=== PATIENT | female | born 1960 | race Caucasian/White ===

== ENCOUNTER 2021-01-02 20:59 | Emergency (ER) | payer OTHER ==
[2021-01-02 21:25] VITALS: RESP 18; TEMP 97.9
[2021-01-02 21:48] LABS: Appearance,Urine Clear (Clear); Bacteria,Urine Rare /hpf; Bilirubin,Urine Negative (Negative); Blood,Urine Negative (Negative); Color,Urine Light Yellow; Glucose,Urine (UA) Negative (Negative); Ketones,Urine Negative (Negative); Leukocyte Esterase,Urine Small (Negative); Nitrite,Urine Negative (Negative); PH, Urine 6.5 (5.0-8.0); Protein,Urine Negative (Negative); RBC,Urine <1 /hpf (0-5); Squamous Epithelial Cell,Urine <1 /hpf (0-4); Urobilinogen,Urine <2.0 mg/dL (<2.0); WBC,Urine 3 /hpf (0-5)
[2021-01-02] MEDS ORDERED: MAG HYDROX/AL HYDROX/SIMETH 30 ML, HYOSCYAMINE ELIXIR 10 ML, LIDOCAINE VISCOUS 2% 10 ML PO STA ×3 (22:03)
--- NOTE | 2021-01-02 22:15 | XR ---
EXAMINATION TYPE: XR KUB DATE OF EXAM: 01/02/2021 COMPARISON: NONE HISTORY: Abdominal pain TECHNIQUE: 2 views upright FINDINGS: There is no sign of intestinal obstruction or pneumoperitoneum. Fecal pattern is normal. Th ere is no evidence of a mass. Lung bases are clear of consolidation. There is probably some subsegmen daron atelectasis right lung base. IMPRESSION: Subsegmental atelectasis posterior right lung base. Nonacute abdomen.
--- NOTE | 2021-01-02 22:40 | ED ---
Abdominal Pain HPI - General Chief Complaint: Abdominal Pain Stated Complaint: Abd Pain Time Seen by Provider: 01/02/21 22:02 Source: patient Mode of arrival: ambulatory Limitations: no limitations - History of Present Illness MD Complaint: abdominal pain Onset/Timin -: days(s) Location: diffuse, epigastric Radiation: none Migration to: no migration Severity: moderate Quality: burning Consistency: constant Improves With: nothing Worsens With: eating Associated Symptoms: nausea - Related Data Previous Rx's Medication Instructions Recorded Dicyclomine [Bentyl] 20 mg PO QID #15 tablet 01/03/21 Allergies Allergy/AdvReac Type Severity Reaction Status Date / Time No Known Allergies Allergy Verified 01/02/21 22:51 Review of Systems ROS Statement: Those systems with pertinent positive or pertinent negative responses have been documented in the HPI. ROS Other: All systems not noted in ROS Statement are negative. Constitutional: Denies: fever, chills Respiratory: Denies: cough, dyspnea Cardiovascular: Denies: chest pain, palpitations, orthopnea, edema, syncope Gastrointestinal: Reports: abdominal pain, nausea. Denies: vomiting, diarrhea, constipation, melena, hematochezia Genitourinary: Denies: dysuria, frequency, hematuria Musculoskeletal: Denies: back pain Skin: Denies: rash Neurological: Denies: headache, weakness, numbness Past Medical History Past Medical History: No Reported History History of Any Multi-Drug Resistant Organisms: None Reported Past Surgical History: Joint Replacement, Orthopedic Surgery Past Psychological History: No Psychological Hx Reported Smoking Status: Current every day smoker (One pack per day) Past Alcohol Use History: Daily (Approximately 6 pack) Past Drug Use History: Marijuana General Exam Limitations: no limitations General appearance: alert, in no apparent distress Head exam: Present: atraumatic, normocephalic Eye exam: Present: normal appearance. Absent: scleral icterus, conjunctival injection ENT exam: Present: normal oropharynx Neck exam: Present: normal inspection Respiratory exam: Present: normal lung sounds bilaterally. Absent: respiratory distress, wheezes, rales, rhonchi, stridor Cardiovascular Exam: Present: regular rate, normal rhythm, normal heart sounds. Absent: systolic murmur, diastolic murmur, rubs, gallop GI/Abdominal exam: Present: soft, tenderness (Mild epigastric tenderness without rebound or guarding), normal bowel sounds. Absent: distended, guarding, rebound, rigid, mass, pulsatile mass, hernia Extremities exam: Present: normal inspection, normal capillary refill. Absent: pedal edema, calf tenderness Back exam: Present: normal inspection. Absent: CVA tenderness (R), CVA tenderness (L) Neurological exam: Present: alert Skin exam: Present: warm, dry, intact, normal color. Absent: rash Course Vital Signs 01/02/21 21:21 Temperature 97.9 F Pulse Rate 72 Respiratory 18 Rate Blood Pressure 169/102 O2 Sat by Pulse 97 Oximetry Medical Decision Making - Lab Data Result diagrams: 01/02/21 22:38 01/02/21 22:38 Lab Results 01/02/21 01/02/21 01/02/21 Range/Units 21:29 21:33 22:38 WBC 9.6 (3.8-10.6) k/uL RBC 4.45 (3.80-5.40) m/uL Hgb 14.5 (11.4-16.0) gm/dL Hct 41.3 (34.0-46.0) % MCV 92.8 (80.0-100.0) fL MCH 32.7 (25.0-35.0) pg MCHC 35.2 (31.0-37.0) g/dL RDW 12.5 (11.5-15.5) % Plt Count 340 (150-450) k/uL MPV 6.7 Neutrophils % 62 % Lymphocytes % 23 % Monocytes % 9 % Eosinophils % 4 % Basophils % 1 % Neutrophils # 6.0 (1.3-7.7) k/uL Lymphocytes # 2.2 (1.0-4.8) k/uL Monocytes # 0.8 (0-1.0) k/uL Eosinophils # 0.4 (0-0.7) k/uL Basophils # 0.1 (0-0.2) k/uL Sodium (137-145) mmol/L Potassium (3.5-5.1) mmol/L Chloride (98-107) mmol/L Carbon Dioxide (22-30) mmol/L Anion Gap mmol/L BUN (7-17) mg/dL Creatinine (0.52-1.04) mg/dL Est GFR (CKD-EPI)AfAm (>60 ml/min/1.73 sqM) Est GFR (CKD-EPI)NonAf (>60 ml/min/1.73 sqM) Glucose (74-99) mg/dL Calcium (8.4-10.2) mg/dL Total Bilirubin (0.2-1.3) mg/dL AST (14-36) U/L ALT (4-34) U/L Alkaline Phosphatase (38-126) U/L Troponin I (0.000-0.034) ng/mL Total Protein (6.3-8.2) g/dL Albumin (3.5-5.0) g/dL Amylase (30-110) U/L Lipase (23-300) U/L Urine Color Light Yellow Urine Appearance Clear (Clear) Urine pH 6.5 (5.0-8.0) Ur Specific [place] 1.000 L (1.001-1.035) Urine Protein Negative (Negative) Urine Glucose (UA) Negative (Negative) Urine Ketones Negative (Negative) Urine Blood Negative (Negative) Urine Nitrite Negative (Negative) Urine Bilirubin Negative (Negative) Urine Urobilinogen <2.0 (<2.0) mg/dL Ur Leukocyte Esterase Small H (Negative) Urine RBC <1 (0-5) /hpf Urine WBC 3 (0-5) /hpf Ur Squamous Epith Cells <1 (0-4) /hpf Urine Bacteria Rare H (None) /hpf Coronavirus (PCR) Not Detected (Not Detectd) 01/02/21 01/02/21 Range/Units 22:38 22:38 WBC (3.8-10.6) k/uL RBC (3.80-5.40) m/uL Hgb (11.4-16.0) gm/dL Hct (34.0-46.0) % MCV (80.0-100.0) fL MCH (25.0-35.0) pg MCHC (31.0-37.0) g/dL RDW (11.5-15.5) % Plt Count (150-450) k/uL MPV Neutrophils % % Lymphocytes % % Monocytes % % Eosinophils % % Basophils % % Neutrophils # (1.3-7.7) k/uL Lymphocytes # (1.0-4.8) k/uL Monocytes # (0-1.0) k/uL Eosinophils # (0-0.7) k/uL Basophils # (0-0.2) k/uL Sodium 134 L (137-145) mmol/L Potassium 4.5 (3.5-5.1) mmol/L Chloride 102 (98-107) mmol/L Carbon Dioxide 25 (22-30) mmol/L Anion Gap 7 mmol/L BUN 9 (7-17) mg/dL Creatinine 0.74 (0.52-1.04) mg/dL Est GFR (CKD-EPI)AfAm >90 (>60 ml/min/1.73 sqM) Est GFR (CKD-EPI)NonAf 88 (>60 ml/min/1.73 sqM) Glucose 96 (74-99) mg/dL Calcium 9.7 (8.4-10.2) mg/dL Total Bilirubin 0.4 (0.2-1.3) mg/dL AST 27 (14-36) U/L ALT 16 (4-34) U/L Alkaline Phosphatase 101 (38-126) U/L Troponin I <0.012 (0.000-0.034) ng/mL Total Protein 7.0 (6.3-8.2) g/dL Albumin 4.1 (3.5-5.0) g/dL Amylase 58 (30-110) U/L Lipase 144 (23-300) U/L Urine Color Urine Appearance (Clear) Urine pH (5.0-8.0) Ur Specific [place] (1.001-1.035) Urine Protein (Negative) Urine Glucose (UA) (Negative) Urine Ketones (Negative) Urine Blood (Negative) Urine Nitrite (Negative) Urine Bilirubin (Negative) Urine Urobilinogen (<2.0) mg/dL Ur Leukocyte Esterase (Negative) Urine RBC (0-5) /hpf Urine WBC (0-5) /hpf Ur Squamous Epith Cells (0-4) /hpf Urine Bacteria (None) /hpf Coronavirus (PCR) (Not Detectd) Disposition Clinical Impression: Hypertension, Abdominal pain Disposition: HOME SELF-CARE Condition: Good Instructions (If sedation given, give patient instructions): Hypertension (ED), Abdominal Pain (ED) Prescriptions: Dicyclomine [Bentyl] 20 mg PO QID #15 tablet Is patient prescribed a controlled substance at d/c from ED?: No Referrals: None,Stated [REFERRING] - 1-2 days Lucia Khaill MD [STAFF PHYSICIAN] - 1-2 days
[2021-01-02 22:50] LABS: Basophils % (A) 1 %; Eosinophils % (A) 4 %; HCT 41.3 % (34.0-46.0); HGB 14.5 gm/dL (11.4-16.0); Lymphocytes % (A) 23 %; MCH 32.7 pg (25.0-35.0); MCHC 35.2 g/dL (31.0-37.0); MCV 92.8 fL (80.0-100.0); Mean Platelet Volume 6.7; Monocytes % (A) 9 %; Neutrophils % (A) 62 %; Platelet Count 340 k/uL (150-450); RBC 4.45 m/uL (3.80-5.40); RDW 12.5 % (11.5-15.5); WBC 9.6 k/uL (3.8-10.6)
[2021-01-02 22:51] LABS: Basophils # (A) 0.1 k/uL (0-0.2); Eosinophils # (A) 0.4 k/uL (0-0.7); Lymphocytes # (A) 2.2 k/uL (1.0-4.8); Monocytes # (A) 0.8 k/uL (0-1.0)
[2021-01-03 00:01] LABS: Potassium 4.5 mmol/L (3.5-5.1)
[2021-01-03 00:02] LABS: ALT 16 U/L (4-34); AST 27 U/L (14-36); African American GFR (CKD) >90 (>60 ml/min/1.73 sqM); Albumin 4.1 g/dL (3.5-5.0); Alkaline Phosphatase 101 U/L (38-126); Amylase 58 U/L (30-110); Anion Gap 7 mmol/L; Blood Urea Nitrogen 9 mg/dL (7-17); Calcium 9.7 mg/dL (8.4-10.2); Carbon Dioxide 25 mmol/L (22-30); Chloride 102 mmol/L (98-107); Glucose 96 mg/dL (74-99); Lipase 144 U/L (23-300); Non-African American GFR(CKD) 88 (>60 ml/min/1.73 sqM); Sodium 134 mmol/L (137-145); Total Bilirubin 0.4 mg/dL (0.2-1.3)
--- NOTE | 2021-01-03 01:00 | CT ---
EXAM: CT Abdomen and Pelvis With Intravenous Contrast CLINICAL HISTORY: ITS.REASON CT Reason: RUQ/epigastric pain TECHNIQUE: Axial computed tomography images of the abdomen and pelvis with intravenous contrast. CTDI is 24.97 mGy and DLP is 1053.3 mGy-cm. This CT exam was performed using one or more of the following dose reduction techniques: automated exposure control, adjustment of the mA and/or kV according to patient size, and/or use of iterative reconstruction technique. COMPARISON: KUB studies of 01/02/2021. FINDINGS: Lung bases: 1 cm calcified granuloma at the right lung base posteriorly. Presumed atelectasis posteriorly at the lung bases. Heart: Heart is normal in size. ABDOMEN: Liver: Fatty infiltration of the liver is noted. Scattered indeterminate hepatic hypodensities are noted Deshaun measures which do not indicate simple cyst. Gallbladder and bile ducts: See below. Pancreas: See below. Spleen: Coarse punctate calcifications within the spleen indicative of previous granulomatous disease. Adrenals: The adrenal glands, the head, body, tail of the pancreas and the gallbladder are unremarkable. Kidneys and ureters: Unremarkable. No solid mass. No hydronephrosis. Stomach and bowel: Small quantity of ingested material in the stomach. Moderate quantity of stool throughout the colon. No bowel obstruction. Diverticulosis without diverticulitis per PELVIS: Appendix: Appendix is seen on coronal image 41 and is unremarkable. Bladder: The bladder is underdistended. Reproductive: The uterus is unremarkable. ABDOMEN and PELVIS: Intraperitoneal space: Unremarkable. No free air. No significant fluid collection. Bones/joints: No acute fracture. No dislocation. Soft tissues: Unremarkable. Vasculature: Atherosclerotic disease of the abdominal aorta. Flow is demonstrated within the celiac, SMA, the renal arteries, and [place]. Significant atherosclerotic disease of major branch of the abdominal aorta. Portal vein is patent. No abdominal aortic aneurysm. Lymph nodes: There is extensive retroperitoneal and gastrohepatic ligament lymphadenopathy best seen on series 201 image 23. IMPRESSION: 1. Scattered hepatic hypodensities which do not appear to represent simple cyst based on Hounsfield evaluation. Magnetic resonance imaging of the abdomen with gadolinium administration dynamic imaging is best for further assessment to 2. Extensive retroperitoneal are and gastrohepatic lymphadenopathy. PET imaging is advised to follow-up for further assessment. 3. Gallbladder is unremarkable. 4. No hydronephrosis. 5. The appendix is unremarkable. 6. No bowel obstruction. 7. Diverticulosis without diverticulitis.
[2021-01-03 01:53] VITALS: BP 159/99; PULSE 85
== END 2021-01-03 01:53 | disposition home or self-care (01) ==
LOC: EC 20:59
DX: R10.13 Epigastric pain (principal); R10.84 Generalized abdominal pain; I10 Essential (primary) hypertension; R11.0 Nausea; F17.210 Nicotine dependence, cigarettes, uncomplicated; F12.90 Cannabis use, unspecified, uncomplicated; Z20.822 Contact with and (suspected) exposure to COVID-19
CPT/HCPCS: 36415; 80053; 82150; 83690; 84484; 85025; 81001; 87635; 74018; 74177; 99284; Q9967

== ENCOUNTER → 2021-02-11 | Outpatient (CLI) | payer OTHER ==
--- NOTE | 2021-02-11 16:46 | XR ---
EXAMINATION TYPE: XR abdomen complete w decub DATE OF EXAM: 02/11/2021 COMPARISON: CT 01/03/2021, a KUB 01/02/2021 HISTORY: R 10.10 TECHNIQUE: Supine, upright, and left side down lateral decubitus views of the abdomen are obtained. FINDINGS: The right lung base there is a calcified granuloma suspected. There is a spinal curvature present, degenerative disc changes are present in the visualized spine. There are overlying artifacts . There is no evidence for pneumoperitoneum. The bowel gas pattern is unremarkable as there is air throughout nondilated small and large bowel. No sizeable air fluid levels. No mass effects are seen. No interval change in pelvic calcifications. Splenic calcifications are again noted. IMPRESSION: The adenopathy seen on patient's prior CT is not seen on plain film, see dictated report CT scan 01/03.
== END | disposition home or self-care (01) ==
LOC: RADXRMAIN 15:53
PROVIDERS: ATTEND Nurse Practitioner
DX: R59.0 Localized enlarged lymph nodes (principal)
CPT/HCPCS: 74021

== ENCOUNTER 2021-02-19 22:26 | Emergency (ER) | payer OTHER ==
[2021-02-19 22:40] VITALS: BP 146/92; PULSE 97; RESP 18; TEMP 97.8
[2021-02-20 00:31] LABS: Appearance,Urine Clear (Clear); Bilirubin,Urine Negative (Negative); Blood,Urine Negative (Negative); Color,Urine Light Yellow; Glucose,Urine (UA) Negative (Negative); Ketones,Urine Negative (Negative); Leukocyte Esterase,Urine Trace (Negative); Nitrite,Urine Negative (Negative); Protein,Urine Negative (Negative); RBC,Urine 1 /hpf (0-5); Specific Gravity,Urine 1.005 (1.001-1.035); Squamous Epithelial Cell,Urine 1 /hpf (0-4); Urobilinogen,Urine <2.0 mg/dL (<2.0); WBC,Urine 1 /hpf (0-5)
--- NOTE | 2021-02-20 00:42 | ED ---
General Adult HPI - General Chief complaint: Urogenital Stated complaint: Issues urinating Time Seen by Provider: 02/19/21 23:12 Source: patient Mode of arrival: wheelchair - History of Present Illness Initial comments: 60 year-old female patient presents to the emergency department for evaluation of urinary retention. She states that she has not urinated since getting out of work around 1530 this afternoon. States that she has been drinking water. Denies any significant suprapubic discomfort. States she does feel the urge to urinate, but only small amounts will come out. Denies a history of similar symptoms. States she has been having some trouble with constipation and abdominal pain. States she has an MRI scheduled for Tuesday. Prior to symptoms starting she denies any hematuria, dysuria, urinary frequency, or urgency. Denies fever or chills. Denies any back pain. - Related Data Previous Rx's Medication Instructions Recorded Dicyclomine [Bentyl] 20 mg PO QID #15 tablet 01/03/21 Allergies Allergy/AdvReac Type Severity Reaction Status Date / Time No Known Allergies Allergy Verified 01/02/21 22:51 Review of Systems ROS Statement: Those systems with pertinent positive or pertinent negative responses have been documented in the HPI. ROS Other: All systems not noted in ROS Statement are negative. Past Medical History Past Medical History: No Reported History History of Any Multi-Drug Resistant Organisms: None Reported Past Surgical History: Joint Replacement, Orthopedic Surgery Past Psychological History: No Psychological Hx Reported Smoking Status: Current every day smoker Past Alcohol Use History: None Reported Past Drug Use History: Marijuana General Exam General appearance: alert, in no apparent distress, other (Social well- developed, well-nourished adult female patient in no acute distress. Vital signs upon presentation temperature 97.8F, pulse 97, respirations 18, blood pressure 146/92, pulse ox 98% on room air.) Eye exam: Present: normal appearance, PERRL, EOMI. Absent: scleral icterus, conjunctival injection, periorbital swelling ENT exam: Present: normal exam, normal oropharynx, mucous membranes moist Respiratory exam: Present: normal lung sounds bilaterally. Absent: respiratory distress, wheezes, rales, rhonchi, stridor Cardiovascular Exam: Present: regular rate, normal rhythm, normal heart sounds. Absent: systolic murmur, diastolic murmur, rubs, gallop, clicks GI/Abdominal exam: Present: soft, normal bowel sounds, hernia (Supraumbilical, no tenderness, no overlying erythema.). Absent: distended, tenderness, guarding, rebound, rigid Back exam: Absent: CVA tenderness (R), CVA tenderness (L) Neurological exam: Present: alert, oriented X3, CN II-XII intact Psychiatric exam: Present: normal affect, normal mood Skin exam: Present: warm, dry, intact, normal color. Absent: rash Course Vital Signs 02/19/21 22:31 Temperature 97.8 F Pulse Rate 97 Respiratory 18 Rate Blood Pressure 146/92 O2 Sat by Pulse 98 Oximetry Medical Decision Making - Medical Decision Making 60-year-old female patient presents to the emergency department today for evaluation of urinary retention. She was able to urinate here or she reports approximately 150-200 output. They did do postvoid residual bladder scan which showed around 160 mL. Urinalysis was negative for signs of infection. I did discuss findings and results with the patient. Offered to perform more testing, she declined states she wanted to go home to get some sleep for work in the morning. She'll be discharged to follow-up with urologist for further evaluation as soon as possible. She is instructed to follow up with her primary care physician for recheck in 1-2 days. Return parameters discussed in detail. She verbalizes understanding and agrees with this plan. My attending is Dr. Sánchez. - Lab Data Lab Results 02/19/21 Range/Units 23:58 Urine Color Light Yellow Urine Appearance Clear (Clear) Urine pH 6.0 (5.0-8.0) Ur Specific [place] 1.005 (1.001-1.035) Urine Protein Negative (Negative) Urine Glucose (UA) Negative (Negative) Urine Ketones Negative (Negative) Urine Blood Negative (Negative) Urine Nitrite Negative (Negative) Urine Bilirubin Negative (Negative) Urine Urobilinogen <2.0 (<2.0) mg/dL Ur Leukocyte Esterase Trace H (Negative) Urine RBC 1 (0-5) /hpf Urine WBC 1 (0-5) /hpf Ur Squamous Epith Cells 1 (0-4) /hpf Disposition Clinical Impression: Urinary retention Disposition: HOME SELF-CARE Condition: Good Instructions (If sedation given, give patient instructions): Acute Urinary Retention in Women (ED) Additional Instructions: Follow-up with urology for further evaluation. Follow-up through primary care physician for recheck in 1-2 days. Return to the emergency department immediately for any new or worsening symptoms. Is patient prescribed a controlled substance at d/c from ED?: No Referrals: Og Darby MD [Primary Care Provider] - 1-2 days Tay Jimenez MD [STAFF PHYSICIAN] - 1-2 days Time of Disposition: 00:42
== END 2021-02-20 00:59 | disposition home or self-care (01) ==
LOC: EC 22:26
DX: R33.9 Retention of urine, unspecified (principal); F17.200 Nicotine dependence, unspecified, uncomplicated; F12.90 Cannabis use, unspecified, uncomplicated
CPT/HCPCS: 51798; 81001; 99283

== ENCOUNTER 2021-02-25 21:50 | Emergency (ER) | payer OTHER ==
[2021-02-25 21:55] VITALS: BP 151/98; PULSE 104; RESP 18; TEMP 98.3
[2021-02-25] MEDS ORDERED: SODIUM CHLORIDE 0.9% 1,000 ML IV STA (22:16)
--- NOTE | 2021-02-25 22:34 | ED ---
General Adult HPI - General Chief complaint: Urogenital Stated complaint: trouble urinating Time Seen by Provider: 02/25/21 21:55 Source: patient Mode of arrival: wheelchair Limitations: no limitations - History of Present Illness Initial comments: 60 year-old female patient presents to the emergency department for evaluation of urinary retention and back pain. Patient states she has had trouble with symptoms since December. Was seen and evaluated in the emergency department on Tuesday. States she has not urinated since then. States that her physician gave her prescription for UTI including cefdinir and pyridium which she started yesterday. She called the office back today to inform them she still had not urinated and she was told to come to the emergency department. She had an outpatient MRI of the abdomen today and waited until after to come in and be evaluated. Reports she is having some diarrhea that started today. Denies fever or chills. Denies any nausea or vomiting. Denies history of kidney failure or issues with urinating prior to December. He states that she did have a computed tomography scan in December which showed possible cancer so there working her up for that, shows have an appointment coming up a [place]. Patient denies any recent rash, cough, shortness of breath, chest pain, numbness, tingling, dizziness, weakness, headache, visual changes, or any other complaints. - Related Data Home Medications Medication Instructions Recorded Confirmed Cefdinir [Omnicef] 1 cap PO BID 02/25/21 02/25/21 Docusate [Colace] 100 mg PO DAILY PRN 02/25/21 02/25/21 Omeprazole 40 mg PO DAILY 02/25/21 02/25/21 Phenazopyridine HCl [Pyridium] 200 mg PO TID PRN 02/25/21 02/25/21 Sucralfate [Carafate] 1 gm PO ACHS 02/25/21 02/25/21 traZODone HCL [Desyrel] 50 mg PO HS 02/25/21 02/25/21 Allergies Allergy/AdvReac Type Severity Reaction Status Date / Time No Known Allergies Allergy Verified 02/25/21 21:54 Review of Systems ROS Statement: Those systems with pertinent positive or pertinent negative responses have been documented in the HPI. ROS Other: All systems not noted in ROS Statement are negative. Past Medical History Past Medical History: No Reported History History of Any Multi-Drug Resistant Organisms: None Reported Past Surgical History: Joint Replacement, Orthopedic Surgery Past Psychological History: No Psychological Hx Reported Smoking Status: Current every day smoker Past Alcohol Use History: Occasional Past Drug Use History: Marijuana General Exam Limitations: no limitations General appearance: alert, in no apparent distress, other (This is a well- developed, well-nourished adult female patient in no acute distress. Vital signs upon presentation are temperature 98.3F, pulse 104, respirations 18, blood pressure 151/98, pulse ox 95% on room air.) ENT exam: Present: normal exam, normal oropharynx, mucous membranes moist Respiratory exam: Present: normal lung sounds bilaterally. Absent: respiratory distress, wheezes, rales, rhonchi, stridor Cardiovascular Exam: Present: regular rate, normal rhythm, normal heart sounds. Absent: systolic murmur, diastolic murmur, rubs, gallop, clicks GI/Abdominal exam: Present: soft, normal bowel sounds. Absent: distended, tenderness, guarding, rebound, rigid Back exam: Present: normal inspection. Absent: CVA tenderness (R), CVA tende rness (L) Neurological exam: Present: alert, oriented X3, CN II-XII intact Psychiatric exam: Present: normal affect, normal mood Skin exam: Present: warm, dry, intact, normal color. Absent: rash Course Vital Signs 02/25/21 21:51 Temperature 98.3 F Pulse Rate 104 H Respiratory 18 Rate Blood Pressure 151/98 O2 Sat by Pulse 95 Oximetry Medical Decision Making - Medical Decision Making 60-year-old female patient presents to the emergency department today for evaluation of urinary retention since Tuesday. Patient reports some back and side pain bilaterally. Patient is afebrile with normal vital signs. Labs reviewed and showed normal kidney function. Normal white blood cell, urinalysis did show positive nitrites so she did take Pyridium today so this is felt to be false positive. She had 16 white blood cells though also had 10-12 squamous epithelial cells so this is most likely due to contamination. She is currently on antibiotic for UTI. Patient did have outpatient MRI of the abdomen per formed, did have radiologist review this image and provide a report which showed worsening lymphadenopathy in the abdomen, displaced pancreas due to the lymphadenopathy. She also had obstructed left ureter, findings were consistent with metastatic disease. Patient has no known primary cancer. I did recommend admission for evaluation by oncology and urology. Patient initially was agreeable then changed her mind and wanted to be discharged. I did discuss that she would have to leave AGAINST MEDICAL ADVICE as a was within her best interest to stay. Did discuss the risks of leaving including , worsening of her symptoms, bladder rupture, and infection. She verbalizes understanding of these risks and proceeded to leave. She did sign AMA form. She is instructed to follow-up as soon as possible with her primary care physician and oncology or return if symptoms worsen. - Lab Data Result diagrams: 02/25/21 22:26 02/25/21 23:01 Lab Results 02/25/21 02/25/21 02/25/21 Range/Units 22:26 22:26 22:26 WBC 13.7 H (3.8-10.6) k/uL RBC 3.99 (3.80-5.40) m/uL Hgb 12.6 (11.4-16.0) gm/dL Hct 35.7 (34.0-46.0) % MCV 89.5 (80.0-100.0) fL MCH 31.7 (25.0-35.0) pg MCHC 35.4 (31.0-37.0) g/dL RDW 11.8 (11.5-15.5) % Plt Count 367 (150-450) k/uL MPV 7.1 Neutrophils % 79 % Lymphocytes % 9 % Monocytes % 8 % Eosinophils % 2 % Basophils % 1 % Neutrophils # 10.8 H (1.3-7.7) k/uL Lymphocytes # 1.3 (1.0-4.8) k/uL Monocytes # 1.2 H (0-1.0) k/uL Eosinophils # 0.2 (0-0.7) k/uL Basophils # 0.1 (0-0.2) k/uL Sodium (137-145) mmol/L Potassium (3.5-5.1) mmol/L Chloride (98-107) mmol/L Carbon Dioxide (22-30) mmol/L Anion Gap mmol/L BUN (7-17) mg/dL Creatinine (0.52-1.04) mg/dL Est GFR (CKD-EPI)AfAm (>60 ml/min/1.73 sqM) Est GFR (CKD-EPI)NonAf (>60 ml/min/1.73 sqM) Glucose (74-99) mg/dL Plasma Lactic Acid [place]erson (0.7-2.0) mmol/L Calcium (8.4-10.2) mg/dL Total Bilirubin (0.2-1.3) mg/dL AST (14-36) U/L ALT (4-34) U/L Alkaline Phosphatase (38-126) U/L Total Protein (6.3-8.2) g/dL Albumin (3.5-5.0) g/dL Lipase (23-300) U/L Urine Color Dark Brown Urine Appearance Cloudy H (Clear) Urine pH 5.5 (5.0-8.0) Ur Specific [place] 1.041 H (1.001-1.035) Urine Protein 1+ H (Negative) Urine Glucose (UA) Negative (Negative) Urine Ketones 1+ H (Negative) Urine Blood Negative (Negative) Urine Nitrite Positive H (Negative) Urine Bilirubin 2+ H (Negative) Urine Urobilinogen 8.0 (<2.0) mg/dL Ur Leukocyte Esterase Negative (Negative) Urine RBC 1 (0-5) /hpf Urine WBC 16 H (0-5) /hpf Ur Squamous Epith Cells 10 H (0-4) /hpf Urine Bacteria Rare H (None) /hpf Urine Mucus Moderate H (None) /hpf Urine Opiates Screen Detected H (NotDetected) Ur Oxycodone Screen Not Detected (NotDetected) Urine Methadone Screen Not Detected (NotDetected) Ur Propoxyphene Screen Not Detected (NotDetected) Ur Barbiturates Screen Not Detected (NotDetected) U Tricyclic Antidepress Not Detected (NotDetected) Ur Phencyclidine Scrn Not Detected (NotDetected) Ur Amphetamines Screen Not Detected (NotDetected) U Methamphetamines Scrn Not Detected (NotDetected) U Benzodiazepines Scrn Not Detected (NotDetected) Urine Cocaine Screen Not Detected (NotDetected) U Marijuana (THC) Screen Detected H (NotDetected) 02/25/21 02/25/21 Range/Units 22:41 23:01 WBC (3.8-10.6) k/uL RBC (3.80-5.40) m/uL Hgb (11.4-16.0) gm/dL Hct (34.0-46.0) % MCV (80.0-100.0) fL MCH (25.0-35.0) pg MCHC (31.0-37.0) g/dL RDW (11.5-15.5) % Plt Count (150-450) k/uL MPV Neutrophils % % Lymphocytes % % Monocytes % % Eosinophils % % Basophils % % Neutrophils # (1.3-7.7) k/uL Lymphocytes # (1.0-4.8) k/uL Monocytes # (0-1.0) k/uL Eosinophils # (0-0.7) k/uL Basophils # (0-0.2) k/uL Sodium 131 L (137-145) mmol/L Potassium 3.8 (3.5-5.1) mmol/L Chloride 99 (98-107) mmol/L Carbon Dioxide 25 (22-30) mmol/L Anion Gap 7 mmol/L BUN 9 (7-17) mg/dL Creatinine 0.82 (0.52-1.04) mg/dL Est GFR (CKD-EPI)AfAm 89 (>60 ml/min/1.73 sqM) Est GFR (CKD-EPI)NonAf 78 (>60 ml/min/1.73 sqM) Glucose 89 (74-99) mg/dL Plasma Lactic Acid [place] 1.1 (0.7-2.0) mmol/L Calcium 8.2 L (8.4-10.2) mg/dL Total Bilirubin 0.3 (0.2-1.3) mg/dL AST 45 H (14-36) U/L ALT 16 (4-34) U/L Alkaline Phosphatase 149 H (38-126) U/L Total Protein 5.7 L (6.3-8.2) g/dL Albumin 3.0 L (3.5-5.0) g/dL Lipase 119 (23-300) U/L Urine Color Urine Appearance (Clear) Urine pH (5.0-8.0) Ur Specific [place] (1.001-1.035) Urine Protein (Negative) Urine Glucose (UA) (Negative) Urine Ketones (Negative) Urine Blood (Negative) Urine Nitrite (Negative) Urine Bilirubin (Negative) Urine Urobilinogen (<2.0) mg/dL Ur Leukocyte Esterase (Negative) Urine RBC (0-5) /hpf Urine WBC (0-5) /hpf Ur Squamous Epith Cells (0-4) /hpf Urine Bacteria (None) /hpf Urine Mucus (None) /hpf Urine Opiates Screen (NotDetected) Ur Oxycodone Screen (NotDetected) Urine Methadone Screen (NotDetected) Ur Propoxyphene Screen (NotDetected) Ur Barbiturates Screen (NotDetected) U Tricyclic Antidepress (NotDetected) Ur Phencyclidine Scrn (NotDetected) Ur Amphetamines Screen (NotDetected) U Methamphetamines Scrn (NotDetected) U Benzodiazepines Scrn (NotDetected) Urine Cocaine Screen (NotDetected) U Marijuana (THC) Screen (NotDetected) - Radiology Data Radiology results: report reviewed MRI of the abdomen with and without contrast was obtained. Report was reviewed in its entirety. Impression by Dr. Perry shows massive retroperitoneal lymphadenopathy that is significantly increased compared to old computed tomography scan. There is anterior displacement of the pancreas due to the adenopathy. Multiple liver lesions which are significantly increased compared to old computed tomography scan consistent with metastatic disease. There is new left pleural effusion. Evidence of new abdominal ascites fluid compared to old exam. Moderately severe left-sided hydronephrosis and hydroureter consistent with dentist or ureteral obstruction which is new change compared to old exam. Disposition Clinical Impression: Ureteral obstruction, left, Abdominal lymphadenopathy, Metastatic disease Disposition: Left Against Medical Advice Condition: Stable Instructions (If sedation given, give patient instructions): Lymphadenopathy (ED), Acute Urinary Retention in Women (ED) Additional Instructions: Follow up with your primary care physician tomorrow. Follow up with oncologist at [facility] as soon as possible. Return to the emergency department for any new, worsening, or concerning symptoms. Is patient prescribed a controlled substance at d/c from ED?: No Referrals: Og Darby MD [Primary Care Provider] - 1-2 days Time of Disposition: 00:16
[2021-02-25 22:43] LABS: Basophils # (A) 0.1 k/uL (0-0.2); Basophils % (A) 1 %; Eosinophils # (A) 0.2 k/uL (0-0.7); Eosinophils % (A) 2 %; HCT 35.7 % (34.0-46.0); HGB 12.6 gm/dL (11.4-16.0); Lymphocytes # (A) 1.3 k/uL (1.0-4.8); Lymphocytes % (A) 9 %; MCH 31.7 pg (25.0-35.0); MCHC 35.4 g/dL (31.0-37.0); MCV 89.5 fL (80.0-100.0); Mean Platelet Volume 7.1; Monocytes # (A) 1.2 k/uL (0-1.0); Monocytes % (A) 8 %; Neutrophils # (A) 10.8 k/uL (1.3-7.7); Neutrophils % (A) 79 %; Platelet Count 367 k/uL (150-450); RBC 3.99 m/uL (3.80-5.40); RDW 11.8 % (11.5-15.5); WBC 13.7 k/uL (3.8-10.6)
[2021-02-25 22:45] LABS: Appearance,Urine Cloudy (Clear); Bacteria,Urine Rare /hpf; Bilirubin,Urine 2+ (Negative); Blood,Urine Negative (Negative); Color,Urine Dark Brown; Glucose,Urine (UA) Negative (Negative); Ketones,Urine 1+ (Negative); Leukocyte Esterase,Urine Negative (Negative); Mucus,Urine Moderate /hpf; Nitrite,Urine Positive (Negative); PH, Urine 5.5 (5.0-8.0); Protein,Urine 1+ (Negative); RBC,Urine 1 /hpf (0-5); Specific Gravity,Urine 1.041 (1.001-1.035); Squamous Epithelial Cell,Urine 10 /hpf (0-4); WBC,Urine 16 /hpf (0-5)
[2021-02-25 23:23] LABS: Amphetamine Screen,Urine Not Detected (NotDetected); Barbiturate Screen,Urine Not Detected (NotDetected); Benzodiazepines Screen,Urine Not Detected (NotDetected); Cocaine Screen,Urine Not Detected (NotDetected); Methadone Screen, Urine Not Detected (NotDetected); Opiate Screen,Urine Detected (NotDetected); Oxycodone Screen, Urine Not Detected (NotDetected); Phencyclidine Screen,Urine Not Detected (NotDetected); Tricyclic Antidepressant,Urine Not Detected (NotDetected); Urn Cannabinoid Scrn Detected (NotDetected)
[2021-02-25 23:38] LABS: Calcium 8.2 mg/dL (8.4-10.2); Potassium 3.8 mmol/L (3.5-5.1); Total Bilirubin 0.3 mg/dL (0.2-1.3); Total Protein 5.7 g/dL (6.3-8.2)
== END 2021-02-26 00:20 | disposition left against medical advice (07) ==
LOC: EC 21:50
DX: N13.1 Hydronephrosis with ureteral stricture, not elsewhere classified (principal); R59.0 Localized enlarged lymph nodes; C79.9 Secondary malignant neoplasm of unspecified site; F17.200 Nicotine dependence, unspecified, uncomplicated; F12.90 Cannabis use, unspecified, uncomplicated
CPT/HCPCS: 36415; 51798; 80053; 80306; 81001; 83605; 83690; 85025; 87086; 96360; 96361; 99284

== ENCOUNTER → 2021-02-25 | Outpatient (CLI) | payer OTHER ==
--- NOTE | 2021-02-25 22:32 | MR ---
EXAMINATION TYPE: MR abdomen wo/w con DATE OF EXAM: 02/25/2021 COMPARISON: CT abdomen 01/03/2021 HISTORY: RUQ and epigastric pain, abnormal CT. CONTRAST: Liver appears slightly enlarged. Standard multiplanar, multisequence MRI departmental protocol utilizing 7 mL intravenous Gadavist leonidas olinium contrast. There are numerous rounded areas of increased signal on the T2 images in the liver that measure up to 4 cm in diameter. The bile ducts are not dilated. Spleen is intact. The pancreatic duct is not dilat ed. I see no pancreatic mass. The stomach appears intact. There is no definite adrenal mass. There is moderate left-sided hydronephrosis and proximal hydrouret er. Left kidney is slightly enlarged. Contrast images show thin rim of enhancement on the multiple li aleida lesions. There is enhancement of both kidneys. There is normal contrast enhancement of the portal venous system. Gallbladder is slightly contracted. There is massive retroperitoneal lymphadenopathy. There is conglomeration of multiple lymph nodes and these measure up to 10 cm in anterior-posterior dimension. There is left pleural effusion. There is no sign of pericardial effusion. There is some ascites fluid in the right paracolic gutter. IMPRESSION: There is massive retroperitoneal lymphadenopathy that is significantly increased compared to old CT s can. There is anterior displacement of the pancreas due to the adenopathy. There are multiple liver lesions which are significantly increased compared to old CT scan and consis tent with metastatic disease. There is a new left pleural effusion. There is evidence of new abdominal ascites fluid compared to old exam. There is moderately severe left-sided hydronephrosis and hydroureter consistent with distal ureteral obstruction which is change compared to old exam.
== END | disposition home or self-care (01) ==
LOC: RADMRIMAIN 20:25
PROVIDERS: ATTEND Family Medicine
DX: K76.9 Liver disease, unspecified (principal); R18.8 Other ascites; R59.1 Generalized enlarged lymph nodes; N13.30 Unspecified hydronephrosis; N13.4 Hydroureter
CPT/HCPCS: 74183; A9585

== ENCOUNTER 2021-03-06 05:36 | Day surgery (SDC) | payer OTHER ==
[2021-03-05 15:19] VITALS: BMI 28.2
[~2021-03-06 05:36] MED LIST: ACETAMINOPHEN TAB 500 MG TAB PO PRN; HEPARIN SODIUM,PORCINE/PF 5,000 UNIT/0.5 ML SYRINGE SQ PRN; Pre Op ABX Message 1 EACH MISC MISCELLANE ONE
[2021-03-06] MEDS ORDERED: ONDANSETRON 4 MG/2 ML VIAL IVP ONE (05:37)
[2021-03-06] MEDS ORDERED: SCOPOLAMINE 1.5MG/72HR PATCH TRANSDERM ONE (05:37)
[2021-03-06] MEDS ORDERED: DEXAMETHASONE SOD PHOSPHATE 4 MG/ML 1 ML VIAL IV ONE (05:37)
[2021-03-06] MEDS ORDERED: MIDAZOLAM 2 MG/2 ML VIAL IV PRN (05:37)
[2021-03-06] MEDS ORDERED: LACTATED RINGERS 1,000 ML IV SCH (05:37)
[2021-03-06] MEDS ORDERED: ACETAMINOPHEN TAB 500 MG TAB ONE (06:33)
[2021-03-06] MEDS ORDERED: HEPARIN SODIUM,PORCINE/PF 5,000 UNIT/0.5 ML SYRINGE SQ ONE (06:34)
[2021-03-06] MEDS ORDERED: PROPOFOL 10 MG/ML 20 ML VIAL IV ONE (06:46)
[2021-03-06] MEDS ORDERED: SUCCINYLCHOLINE CHLORIDE 100 MG/5 ML SYR IV ONE (06:46)
[2021-03-06] MEDS ORDERED: fentaNYL (PF) 50 MCG/ML 2 ML AMP ONE (06:46)
[2021-03-06] MEDS ORDERED: MIDAZOLAM 2 MG/2 ML VIAL ONE (06:46)
[2021-03-06] MEDS ORDERED: LIDOCAINE 1% INJ 10MG/ML (20 ML MDV) ONE (06:46)
[2021-03-06] MEDS ORDERED: SODIUM CHLORIDE 0.9% 100 ML with ceFAZolin 2,000 MG IV ONE ×2 (06:50)
[2021-03-06] MEDS ORDERED: HYDROmorphone 0.5 MG/0.5 ML SYRINGE IVP PRN (07:00)
[2021-03-06] MEDS ORDERED: BUPIVACAINE (PF) 0.25% 30 ML VIAL SQ ONE ×2 (07:24→07:43)
[2021-03-06 08:01] VITALS: TEMP 98
[2021-03-06 08:03] VITALS: RESP 16
[2021-03-06] MEDS ORDERED: NALOXONE 0.4 MG/ML 1 ML VIAL IV PRN (08:03)
--- NOTE | 2021-03-06 08:06 | P.OP ---
Date of Procedure: 03/06/21 Procedure(s) Performed: Preoperative Dx: Metastatic cancer, abdominal pain, lymphadenopathy Postoperative Dx: Gastritis, lymphadenopathy Procedure: EGD with Bx, excision left supraclavicular lymph node Anesthesia: Sedation Endoscopist: Dr. Ruth Specimens: Antrum, left supraclavicular lymph node biopsy Endoscopic Procedure: The patient was on the operating room table in the supine position. Patient was placed under general anesthesia. The Olympus gastroscope was inserted into the oropharynx and passed under direct visualization to the region of the third portion of the duodenum. From that point the scope was slowly withdrawn inspecting all surfaces carefully. There were no neoplastic inflammatory or polypoid lesions throughout the duodenum. The pylorus was widely patent. The stomach was carefully inspected. There was mild gastritis present. A biopsy of the antrum took place to rule out H. pylori. Retroflexion revealed a normal hiatus. The esophagus was then carefully examined. There were no neoplastic inflammatory or polypoid lesions throughout the visualized esophagus. The left supraclavicular region was then prepped and draped sterilely. The palpable lymph node was identified. A curvilinear incision was made overlying the palpable node. Dissection through the saphenous tissues took place using electrocautery. Superficial venous structure divided using 3-0 silk ties. The palpable lymph node was then excised measuring 1.5 cm. In addition necrotic node was also identified during our dissection and partially excised. Both specimens sent to pathology. Subcutaneous tissues closed using 3-0 Vicryl sutures. Skin closed using 4-0 Monocryl sutures. Skin glue then applied.
[2021-03-06 08:50] VITALS: BP 131/89; PULSE 71
== END 2021-03-06 09:10 | disposition home or self-care (01) ==
LOC: OR 05:36
PROVIDERS: ATTEND Surgery
DX: C77.0 Secondary and unspecified malignant neoplasm of lymph nodes of head, face and neck (principal); K29.50 Unspecified chronic gastritis without bleeding; K92.2 Gastrointestinal hemorrhage, unspecified; Z98.890 Other specified postprocedural states; F17.210 Nicotine dependence, cigarettes, uncomplicated; E07.9 Disorder of thyroid, unspecified; Z86.73 Personal history of transient ischemic attack (TIA), and cerebral infarction without residual deficits; Z79.899 Other long term (current) drug therapy
CPT/HCPCS: 88305; 88342; 88341; 43239; 38500; J2250; J1100; J2405; J0690; J2001; J3010; J0330; J2704; J1644

== ENCOUNTER 2021-03-09 10:37 | Inpatient (IN) | payer OTHER ==
[2021-03-09] MEDS ORDERED: MORPHINE SULFATE 4 MG/ML SYRINGE IVP STA (11:57)
[2021-03-09] MEDS ORDERED: SODIUM CHLORIDE 0.9% 500 ML 500 ML IV STA (11:57)
[2021-03-09 12:39] LABS: Basophils # (A) 0.1 k/uL (0-0.2); Basophils % (A) 1 %; Eosinophils # (A) 0.3 k/uL (0-0.7); Eosinophils % (A) 2 %; HCT 36.7 % (34.0-46.0); HGB 12.7 gm/dL (11.4-16.0); Lymphocytes # (A) 1.4 k/uL (1.0-4.8); Lymphocytes % (A) 10 %; MCHC 34.7 g/dL (31.0-37.0); MCV 89.5 fL (80.0-100.0); Mean Platelet Volume 7.2; Monocytes # (A) 1.4 k/uL (0-1.0); Monocytes % (A) 10 %; Neutrophils # (A) 10.9 k/uL (1.3-7.7); Neutrophils % (A) 77 %; Platelet Count 415 k/uL (150-450); RDW 12.3 % (11.5-15.5); WBC 14.2 k/uL (3.8-10.6)
[2021-03-09 12:48] LABS: ALT 24 U/L (4-34); AST 80 U/L (14-36); African American GFR (CKD) >90 (>60 ml/min/1.73 sqM); Albumin 3.3 g/dL (3.5-5.0); Alkaline Phosphatase 319 U/L (38-126); Anion Gap 6 mmol/L; Blood Urea Nitrogen 11 mg/dL (7-17); Calcium 9.1 mg/dL (8.4-10.2); Carbon Dioxide 29 mmol/L (22-30); Chloride 95 mmol/L (98-107); Glucose 96 mg/dL (74-99); Lipase 58 U/L (23-300); Non-African American GFR(CKD) >90 (>60 ml/min/1.73 sqM); Potassium 4.7 mmol/L (3.5-5.1); Sodium 130 mmol/L (137-145); Total Bilirubin 0.4 mg/dL (0.2-1.3); Total Protein 6.2 g/dL (6.3-8.2)
--- NOTE | 2021-03-09 12:48 | ED ---
General Adult HPI - General Chief complaint: Recheck/Abnormal Lab/Rx Stated complaint: sent by PCP Time Seen by Provider: 03/09/21 11:28 Source: patient Mode of arrival: wheelchair Limitations: physical limitation - History of Present Illness Initial comments: Patient is a 60-year-old female, with a recent diagnosis of metastatic cancer, presenting to the emergency department from physician's office for generalized pain, shortness of breath. Patient states that this is a brand-new diagnosis and she is still unsure of what the course of action is going to be. She has been following with Dr. Luther. Patient states she has been taking Oxford's for p ain, her last dose of the proximal base exam this morning. She states her abdominal pain is no worse than it normally is, some mild nausea but no vomiting. No diarrhea. She denies any chest pain at this time, but feels like her heart is beating faster. Her doctor's office, patient was hypoxic and tachycardic in the office and they were concerned for possible PE. She has no history of PEs, she is not on blood thinners. There are no further complaints. Upon arrival to the ER, her pulse is 107, 94% on room air, rest of vital stable. - Related Data Home Medications Medication Instructions Recorded Confirmed Docusate [Colace] 100 mg PO DAILY PRN 02/25/21 03/09/21 Sucralfate [Carafate] 1 gm PO Q6H 02/25/21 03/09/21 HYDROcodone/APAP 5-325MG [[place] 1 tab PO Q6HR 03/05/21 03/09/21 5-325] Hyoscyamine Sulfate [Levsin] 0.125 mg PO TID 03/05/21 03/09/21 Allergies Allergy/AdvReac Type Severity Reaction Status Date / Time No Known Allergies Allergy Verified 03/09/21 13:13 Review of Systems ROS Statement: Those systems with pertinent positive or pertinent negative responses have been documented in the HPI. ROS Other: All systems not noted in ROS Statement are negative. Past Medical History Past Medical History: No Reported History Additional Past Medical History / Comment(s): " FLUID ON LUNGS " -POSSIBLE , SWELLING IN FEET, ABDOMINAL PAIN , stomach ca History of Any Multi-Drug Resistant Organisms: None Reported Past Surgical History: Joint Replacement, Orthopedic Surgery Additional Past Surgical History / Comment(s): RIGHT TOTAL KNEE, COLONOSCOPY Past Anesthesia/Blood Transfusion Reactions: No Reported Reaction Past Psychological History: No Psychological Hx Reported Smoking Status: Current every day smoker Past Alcohol Use History: Occasional Past Drug Use History: Marijuana - Past Family History Mother Family Medical History: Cancer Additional Family Medical History / Comment(s): BREAST CANCER Father Family Medical History: Cancer Additional Family Medical History / Comment(s): COLON CANCER General Exam - General Exam Comments Initial Comments: GENERAL: Patient is well-developed and well-nourished. Patient is nontoxic and in no acute distress. HEAD: Atraumatic, normocephalic. EYES: Pupils equal round and reactive to light, extraocular movements intact, sclera anicteric, conjunctiva are normal. Eyelids were unremarkable. ENT: TMs normal, nares patent, oropharynx clear without exudates. Moist mucous membranes. NECK: Normal range of motion, supple without lymphadenopathy or JVD. LUNGS: Unlabored respirations. Breath sounds clear to auscultation bilaterally and equal. No wheezes rales or rhonchi. HEART: Tachycardia rate and rhythm without murmurs, rubs or gallops. ABDOMEN: Soft, tenderness over the entire abdomen, no specific area,, normoactive bowel sounds. No guarding, no rebound. No masses appreciated. : Deferred MUSCULOSKELETAL: Normal extremities with adequate strength and normal range of motio. Mild bilateral ankle edema. No clubbing or cyanosis. NEUROLOGICAL: Patient is alert and oriented x 3. Motor and sensory are also intact. Cranial nerves II through XII grossly intact. Symmetrical smile. Normal speech, normal gait. PSYCH: Normal mood, normal affect. SKIN: Warm, Dry, normal turgor, no rashes or lesions noted. Limitations: physical limitation Course Vital Signs 03/09/21 03/09/21 03/09/21 11:05 12:21 12:47 Temperature 98.2 F Pulse Rate 107 H 100 103 H Respiratory 18 18 18 Rate Blood Pressure 110/77 126/84 126/98 O2 Sat by Pulse 94 L 93 L 92 L Oximetry 03/09/21 03/09/21 03/09/21 13:41 15:41 15:46 Temperature 98.2 F Pulse Rate 105 H 100 100 Respiratory 16 16 16 Rate Blood Pressure 123/91 122/86 122/86 O2 Sat by Pulse 92 L 90 L 90 L Oximetry EKG Findings - EKG Comments: EKG Findings:: Sinus tach, possible lateral infarct age undetermined, cannot rule out inferior infarct, age undetermined, no signs of acute process. Ventricular rate 107, PA interval 140, QT 322. Medical Decision Making - Medical Decision Making Patient is a 60-year-old female with recent history of metastatic abdominal cancer, origin is unsure. She arrived from PCPs office for further evaluation of tachycardia, hypoxia, generalized pain. Patient is afebrile, tachycardia at 107, 94% on room air. She is not on blood thinners. Labs show a slight white count of 14.2, d-dimer is 2.47, sodium is 130, troponin is normal. Urine shows no evidence of infection, rapid Covid is negative. CT chest and now shows no large central PE, no definite lobar branch embolus. Bilateral pulmonary no dules, hepatic and adrenal metastases, moderate to large left pleural effusion with adjacent collapsible inferior lingula, and basilar left lower lobe. Small right effusion. Patient continues to be tachycardia at 105, 92% on room air. Patient will be admitted for oncology and pulmonary consult. Patient accepted by [facility]. Case discussed with Dr. Brennan. - Lab Data Result diagrams: 03/11/21 05:32 03/10/21 05:21 Lab Results 03/09/21 03/09/21 03/09/21 Range/Units 11:59 11:59 11:59 WBC 14.2 H (3.8-10.6) k/uL RBC 4.10 (3.80-5.40) m/uL Hgb 12.7 (11.4-16.0) gm/dL Hct 36.7 (34.0-46.0) % MCV 89.5 (80.0-100.0) fL MCH 31.0 (25.0-35.0) pg MCHC 34.7 (31.0-37.0) g/dL RDW 12.3 (11.5-15.5) % Plt Count 415 (150-450) k/uL MPV 7.2 Neutrophils % 77 % Lymphocytes % 10 % Monocytes % 10 % Eosinophils % 2 % Basophils % 1 % Neutrophils # 10.9 H (1.3-7.7) k/uL Lymphocytes # 1.4 (1.0-4.8) k/uL Monocytes # 1.4 H (0-1.0) k/uL Eosinophils # 0.3 (0-0.7) k/uL Basophils # 0.1 (0-0.2) k/uL PT 10.9 (9.0-12.0) sec INR 1.0 (<1.2) APTT 23.7 (22.0-30.0) sec D-Dimer 2.47 H (<0.60) mg/L FEU Sodium 130 L (137-145) mmol/L Potassium 4.7 (3.5-5.1) mmol/L Chloride 95 L (98-107) mmol/L Carbon Dioxide 29 (22-30) mmol/L Anion Gap 6 mmol/L BUN 11 (7-17) mg/dL Creatinine 0.71 (0.52-1.04) mg/dL Est GFR (CKD-EPI)AfAm >90 (>60 ml/min/1.73 sqM) Est GFR (CKD-EPI)NonAf >90 (>60 ml/min/1.73 sqM) Glucose 96 (74-99) mg/dL Osmolality (280-301) mosm/kg Plasma Lactic Acid [place] (0.7-2.0) mmol/L Calcium 9.1 (8.4-10.2) mg/dL Total Bilirubin 0.4 (0.2-1.3) mg/dL AST 80 H (14-36) U/L ALT 24 (4-34) U/L Alkaline Phosphatase 319 H (38-126) U/L Troponin I (0.000-0.034) ng/mL Total Protein 6.2 L (6.3-8.2) g/dL Albumin 3.3 L (3.5-5.0) g/dL Lipase 58 (23-300) U/L Urine Color Urine Appearance (Clear) Urine pH (5.0-8.0) Ur Specific [place] (1.001-1.035) Urine Protein (Negative) Urine Glucose (UA) (Negative) Urine Ketones (Negative) Urine Blood (Negative) Urine Nitrite (Negative) Urine Bilirubin (Negative) Urine Urobilinogen (<2.0) mg/dL Ur Leukocyte Esterase (Negative) Urine RBC (0-5) /hpf Urine WBC (0-5) /hpf Ur Squamous Epith Cells (0-4) /hpf Amorphous Sediment (None) /hpf Urine Mucus (None) /hpf Coronavirus (PCR) (Not Detectd) 03/09/21 03/09/21 03/09/21 Range/Units 11:59 11:59 11:59 WBC (3.8-10.6) k/uL RBC (3.80-5.40) m/uL Hgb (11.4-16.0) gm/dL Hct (34.0-46.0) % MCV (80.0-100.0) fL MCH (25.0-35.0) pg MCHC (31.0-37.0) g/dL RDW (11.5-15.5) % Plt Count (150-450) k/uL MPV Neutrophils % % Lymphocytes % % Monocytes % % Eosinophils % % Basophils % % Neutrophils # (1.3-7.7) k/uL Lymphocytes # (1.0-4.8) k/uL Monocytes # (0-1.0) k/uL Eosinophils # (0-0.7) k/uL Basophils # (0-0.2) k/uL PT (9.0-12.0) sec INR (<1.2) APTT (22.0-30.0) sec D-Dimer (<0.60) mg/L FEU Sodium (137-145) mmol/L Potassium (3.5-5.1) mmol/L Chloride (98-107) mmol/L Carbon Dioxide (22-30) mmol/L Anion Gap mmol/L BUN (7-17) mg/dL Creatinine (0.52-1.04) mg/dL Est GFR (CKD-EPI)AfAm (>60 ml/min/1.73 sqM) Est GFR (CKD-EPI)NonAf (>60 ml/min/1.73 sqM) Glucose (74-99) mg/dL Osmolality (280-301) mosm/kg Plasma Lactic Acid [place] 1.7 (0.7-2.0) mmol/L Calcium (8.4-10.2) mg/dL Total Bilirubin (0.2-1.3) mg/dL AST (14-36) U/L ALT (4-34) U/L Alkaline Phosphatase (38-126) U/L Troponin I <0.012 (0.000-0.034) ng/mL Total Protein (6.3-8.2) g/dL Albumin (3.5-5.0) g/dL Lipase (23-300) U/L Urine Color Yellow Urine Appearance Clear (Clear) Urine pH 5.5 (5.0-8.0) Ur Specific [place] 1.034 (1.001-1.035) Urine Protein 1+ H (Negative) Urine Glucose (UA) Negative (Negative) Urine Ketones Trace H (Negative) Urine Blood Negative (Negative) Urine Nitrite Negative (Negative) Urine Bilirubin Negative (Negative) Urine Urobilinogen <2.0 (<2.0) mg/dL Ur Leukocyte Esterase Negative (Negative) Urine RBC 1 (0-5) /hpf Urine WBC 2 (0-5) /hpf Ur Squamous Epith Cells 1 (0-4) /hpf Amorphous Sediment Rare H (None) /hpf Urine Mucus Rare H (None) /hpf Coronavirus (PCR) (Not Detectd) 03/09/21 03/09/21 Range/Units 11:59 11:59 WBC (3.8-10.6) k/uL RBC (3.80-5.40) m/uL Hgb (11.4-16.0) gm/dL Hct (34.0-46.0) % MCV (80.0-100.0) fL MCH (25.0-35.0) pg MCHC (31.0-37.0) g/dL RDW (11.5-15.5) % Plt Count (150-450) k/uL MPV Neutrophils % % Lymphocytes % % Monocytes % % Eosinophils % % Basophils % % Neutrophils # (1.3-7.7) k/uL Lymphocytes # (1.0-4.8) k/uL Monocytes # (0-1.0) k/uL Eosinophils # (0-0.7) k/uL Basophils # (0-0.2) k/uL PT (9.0-12.0) sec INR (<1.2) APTT (22.0-30.0) sec D-Dimer (<0.60) mg/L FEU Sodium (137-145) mmol/L Potassium (3.5-5.1) mmol/L Chloride (98-107) mmol/L Carbon Dioxide (22-30) mmol/L Anion Gap mmol/L BUN (7-17) mg/dL Creatinine (0.52-1.04) mg/dL Est GFR (CKD-EPI)AfAm (>60 ml/min/1.73 sqM) Est GFR (CKD-EPI)NonAf (>60 ml/min/1.73 sqM) Glucose (74-99) mg/dL Osmolality 267 L (280-301) mosm/kg Plasma Lactic Acid [place] (0.7-2.0) mmol/L Calcium (8.4-10.2) mg/dL Total Bilirubin (0.2-1.3) mg/dL AST (14-36) U/L ALT (4-34) U/L Alkaline Phosphatase (38-126) U/L Troponin I (0.000-0.034) ng/mL Total Protein (6.3-8.2) g/dL Albumin (3.5-5.0) g/dL Lipase (23-300) U/L Urine Color Urine Appearance (Clear) Urine pH (5.0-8.0) Ur Specific [place] (1.001-1.035) Urine Protein (Negative) Urine Glucose (UA) (Negative) Urine Ketones (Negative) Urine Blood (Negative) Urine Nitrite (Negative) Urine Bilirubin (Negative) Urine Urobilinogen (<2.0) mg/dL Ur Leukocyte Esterase (Negative) Urine RBC (0-5) /hpf Urine WBC (0-5) /hpf Ur Squamous Epith Cells (0-4) /hpf Amorphous Sediment (None) /hpf Urine Mucus (None) /hpf Coronavirus (PCR) Not Detected (Not Detectd) Disposition Clinical Impression: Metastatic disease, Hypoxia, Pleural effusion, left, Abdominal pain Disposition: ADMITTED IP TO THIS HOSP Condition: Stable Decision Date: 03/09/21 Decision Time: 14:00
[2021-03-09 12:52] LABS: Partial Thromboplastin Time 23.7 sec (22.0-30.0); Prothrombin Time 10.9 sec (9.0-12.0)
[2021-03-09 13:05] LABS: D-Dimer 2.47 mg/L FEU (<0.60)
[2021-03-09 13:14] LABS: Amorphous Sediment,Urine Rare /hpf; Appearance,Urine Clear (Clear); Bilirubin,Urine Negative (Negative); Blood,Urine Negative (Negative); Color,Urine Yellow; Glucose,Urine (UA) Negative (Negative); Ketones,Urine Trace (Negative); Leukocyte Esterase,Urine Negative (Negative); Mucus,Urine Rare /hpf; Nitrite,Urine Negative (Negative); PH, Urine 5.5 (5.0-8.0); Protein,Urine 1+ (Negative); RBC,Urine 1 /hpf (0-5); Specific Gravity,Urine 1.034 (1.001-1.035); Squamous Epithelial Cell,Urine 1 /hpf (0-4); Urobilinogen,Urine <2.0 mg/dL (<2.0); WBC,Urine 2 /hpf (0-5)
--- NOTE | 2021-03-09 13:33 | CT ---
EXAMINATION TYPE: CT chest angio for PE DATE OF EXAM: 03/09/2021 COMPARISON: None HISTORY: 60-year-old female with tachycardia, cancer patient, shortness of breath, Dyspnea. TECHNIQUE: Contiguous axial scanning of the chest performed with IV Contrast, patient injected with 1 00 mL of Isovue 370. Coronal/sagittal MIP reconstructions performed. CT DLP: 295.5 mGycm Automated exposure control for dose reduction was used. FINDINGS: Heart normal size without pericardial effusion. No flattening of the interventricular septum or reflu x of contrast into the hepatic veins. Prominent motion artifact at the base of the heart. Borderline ectatic ascending aorta 3.5 cm. Medial left breast mass measures 1.9 cm. Since it left-sided axillary lymphadenopathy measuring up to 2.9 cm extending into the subpectoral region. Possible underlying lymphadenopathy in the left suprac lavicular region measuring up to 4.1 cm and left thoracic inlet measuring 1.9 cm displacing the left lobe of the thyroid gland and left common carotid artery anteriorly. Left hilar lymph nodes measure 1.2 cm. Right periaortic lymphadenopathy measures up to 3.2 cm at the mid chest level. Right hilar lymph node s measure up to 2.0. Additional calcified subcarinal right hilar lymph nodes compatible with prior gr anulomatous disease. Extensive motion artifact no large central or definite lobar branch pulmonary embolus. Portions of th e lower branches and many of the segmental and more distal pulmonary arteries are nondiagnostic due t o the motion. Mild to moderate centrilobular emphysema. Numerous small nodules measuring mostly up to 8 mm. Nodules in the right lung base measuring up to 1.5 cm. There are some scattered septal lines. Moderate to la rge left pleural effusion. Near complete collapse of the inferior lingula and basilar left lower lobe . Small right pleural effusion. Some scattered septal lines within the lungs. Extensive retrocrural and upper abdominal lymphadenopathy. There is encasement of the gastrohepatic l igament region and celiac axis. Large hepatic masses measuring up to 8.3 cm. Abnormal perinephric sof t tissue nodularity and bilateral adrenal masses measuring up to 3.9 cm. Some delayed enhancement of the left kidney. Bones: [facility] within the mid to lower thoracic spine. IMPRESSION: 1. BREATHING MOTION ARTIFACT LIMITING ASSESSMENT FOR PE. NO LARGE CENTRAL PULMONARY EMBOLUS. NO DEFIN ITE LOBAR BRANCH EMBOLUS. SCATTERED PORTIONS OF THE LOBAR BRANCHES AND MANY OF THE SEGMENTAL AND MORE DISTAL ARTERIAL BRANCHES ARE NONDIAGNOSTIC AND EMBOLI IN THESE LOCATIONS CANNOT BE EXCLUDED ON THE B ASIS OF THIS EXAM. 2. A 1.9 CM MEDIAL LEFT BREAST MASS, LEFT-SIDED AXILLARY LYMPHADENOPATHY, BILATERAL PULMONARY NODULES MEASURING UP TO 1.5 CM, LEFT SUPRACLAVICULAR AND LEFT THORACIC INLET LYMPHADENOPATHY, RETROCRURAL AN D SEVERE UPPER ABDOMINAL LYMPHADENOPATHY. HEPATIC AND ADRENAL METASTASES. PERINEPHRIC NODULARITY ALSO SUGGESTIVE OF METASTATIC DISEASE. 3. MODERATE TO LARGE LEFT PLEURAL EFFUSION. THERE IS ADJACENT COLLAPSE OF THE INFERIOR LINGULA AND BA SILAR LEFT LOWER LOBE. SMALL RIGHT EFFUSION. 4. COPD WITH MILD EMPHYSEMA. GIVEN SOME SEPTAL LINES AND THE BILATERAL PLEURAL EFFUSIONS, CONSIDER [place] LD PULMONARY VASCULAR CONGESTION. 5. DELAYED ENHANCEMENT OF THE LEFT KIDNEY. CORRELATE TO EXCLUDE LEFT-SIDED OBSTRUCTIVE UROPATHY.
[2021-03-09] MEDS ORDERED: NALOXONE 0.4 MG/ML 1 ML VIAL IV PRN (13:53)
[2021-03-09] MEDS ORDERED: ONDANSETRON 4 MG/2 ML VIAL IVP PRN (13:53)
[2021-03-09] MEDS ORDERED: DOCUSATE 100 MG CAP PO PRN (14:58)
[2021-03-09] MEDS: SODIUM CHLORIDE 0.9% 1,000 ML IV SCH (15:00)
--- NOTE | 2021-03-09 15:29 | US ---
EXAMINATION TYPE: US chest DATE OF EXAM: 03/09/2021 COMPARISON: CT chest same date CLINICAL HISTORY: left pleural effusion. TECHNIQUE: Targeted ultrasound of the posterior lower left chest EXAM MEASUREMENTS: Left Pleural Effusion pocket size: 10.7 cm Left skin surface to fluid distance: 3.5 cm Left side marked for possible thoracentesis outside the dept. Right not done per Dr. Cross in room during ultrasound. Pulmonologists are able to review the images in the patient?s EMR. IMPRESSIONS: Large left pleural effusion, limited exam
--- NOTE | 2021-03-09 15:51 | XR ---
EXAMINATION TYPE: XR chest 1V portable DATE OF EXAM: 03/09/2021 COMPARISON: 03/09/2021 CT HISTORY: Postthoracentesis TECHNIQUE: Single frontal view of the chest is obtained. FINDINGS: Left greater than right bilateral pleural effusions are seen with adjacent airspace diseas e. No definite pneumothorax. Right chest nodules are noted, as seen on prior CT. Cardiac silhouette is obscured by pulmonary findings. IMPRESSION: Left greater than right bilateral pleural effusions are seen with adjacent airspace disease. No defin ite pneumothorax.
--- NOTE | 2021-03-09 16:21 | P.CNPUL ---
History of Present Illness Consult date: 03/09/21 Requesting physician: Og Darby Reason for consult: pleural effusion Chief complaint: Generalized weakness and vague pain. History of present illness: This is a 60-year-old female who has not been feeling well since December of 2020. Patient has been complaining of vague abdominal discomfort and some bloating of her stomach for the last 2 months. A KUB was done on 01/02/2021, and it showed subsegmental atelectasis posterior right lung base. There was no evidence of acute abdomen at the time. And no evidence of mass. CT of the abdomen and pelvis was done on 01/03/2021, this was done in the ER, and there was evidence of extensive retroperitoneal and gastrohepatic lymphadenopathy. The radiologist at that time recommended MRI of the abdomen. MRI of the abdomen was not done on 14/06/2021, however prior to that on 02/2021, patient was seen in the ER again, and her complaint was mostly urinary retention. No major workup was done at the time. Her MRI on 02/25/21, showed massive retroperitoneal lymphadenopathy significantly increased compared to previous CT of the abdomen and pelvis. There was evidence of anterior displacement of the pancreas due to adenopathy. There was also multiple liver lesions significantly increased compared to previous CT of the abdomen and pelvis consistent with metastatic disease. There was also evidence of left sided hydronephrosis and proximal hydroureter. There was also evidence of abdominal ascites. The radiologist also raise the possibility of distal ureteral obstruction. Patient was referred to Dr. Luther on outpatient basis, and he recommended a referral to Dr. David schilling. Patient underwent EGD she also underwent excision of left supraclavicular lymph node. There was no evidence of inflammatory or polypoid lesions throughout the stomach or duodenum. The pathology on the left supraclavicular lymph node is pending. Patient was seen by her primary care physician today with multiple constitutional complaints, and he recommended that the patient goes to the ER again. CT of the chest was done, and it showed no evidence of pulmonary embolism. It did show evidence of 1.9 cm left breast mass and left sided axillary lymphadenopathy it also showed bilateral pulmonary nodules and left supraclavicular as well as left thoracic inlet lymphadenopathy significant upper abdominal lymphadenopathy and hepatic as well as adrenal metastatic lesions were noted. In addition to this there was a moderate to large left pleural effusion and collapse of the inferior lingula. With a small right-sided pleural effusion. Considering the findings, I was asked to see this patient on consultation I did evaluate the patient in the ER, went ahead and performed left-sided thoracentesis which is mostly diagnostic and therapeutic at the same time. Fluid was sent for different diagnostic studies including cytology and creatinine level was ordered to make sure that the fluid is not urinothorax . I was able to drain 1100 mL of fluid and again this was sent for different diagnostic studies. I did get the report on the biopsies that were done by Dr. schilling, and these are all pending. Review of Systems Constitutional: Generalized weakness and fatigue. Vague aches and pains. HEENT: Negative. Pulmonary: Some shortness of breath, occasional cough, no wheezing. GI: As noted in HPI mostly abdominal distention and feeling still a bloated most of the time, occasional nausea. Genitourinary: Negative. Musculoskeletal: Vague aches and pains. Psychiatric: Negative. Endocrine: Negative Neurologic: Negative. Hematologic: Negative. Skin: Negative. Past Medical History Past Medical History: No Reported History Additional Past Medical History / Comment(s): " FLUID ON LUNGS " -POSSIBLE , SWELLING IN FEET, ABDOMINAL PAIN , stomach ca History of Any Multi-Drug Resistant Organisms: None Reported Past Surgical History: Joint Replacement, Orthopedic Surgery Additional Past Surgical History / Comment(s): RIGHT TOTAL KNEE, COLONOSCOPY Past Anesthesia/Blood Transfusion Reactions: No Reported Reaction Past Psychological History: No Psychological Hx Reported Smoking Status: Current every day smoker Past Alcohol Use History: Occasional Past Drug Use History: Marijuana - Past Family History Mother Family Medical History: Cancer Additional Family Medical History / Comment(s): BREAST CANCER Father Family Medical History: Cancer Additional Family Medical History / Comment(s): COLON CANCER Medications and Allergies Home Medications Medication Instructions Recorded Confirmed Type Docusate [Colace] 100 mg PO DAILY PRN 02/25/21 03/09/21 History Sucralfate [Carafate] 1 gm PO Q6H 02/25/21 03/09/21 History HYDROcodone/APAP 5-325MG [[place] 1 tab PO Q6HR 03/05/21 03/09/21 History 5-325] Hyoscyamine Sulfate [Levsin] 0.125 mg PO TID 03/05/21 03/09/21 History Allergies Allergy/AdvReac Type Severity Reaction Status Date / Time No Known Allergies Allergy Verified 03/09/21 13:13 Physical Exam Vitals: Vital Signs Temp Pulse Resp BP Pulse Ox 03/09/21 15:46 98.2 F 100 16 122/86 90 L 03/09/21 15:41 100 16 122/86 90 L 03/09/21 13:41 105 H 16 123/91 92 L 03/09/21 12:47 103 H 18 126/98 92 L 03/09/21 12:21 100 18 126/84 93 L 03/09/21 11:05 98.2 F 107 H 18 110/77 94 L Intake and Output 03/09/21 03/09/21 03/09/21 06:59 14:59 22:59 Other: Weight 72.575 kg Physical Exam: Revealed 60-year-old female in no distress. On room air Head: Atraumatic, normocephalic. HEENT:[Neck is supple.] Left supraclavicular lymphadenopathy is noted and palpable. Chest: [Apical chest expansion, diminished breath sounds and dullness at the left base. Cardiac Exam: [Normal S1 and S2, no S3 gallop, no murmur.] Abdomen: [Soft, nontender, no megaly, no rebound, no guarding, normal bowel sounds.] Extremities: Mild clubbing, no edema, no cyanosis.] Neurological Exam: Alert and oriented 3 focal deficits. Psychiatric: Normal mood affect and normal mental status examination. Skin: No rashes. Musculoskeletal: No deformities and no limitation in range of motion Results - Laboratory Findings CBC and BMP: 03/09/21 11:59 03/09/21 11:59 PT/INR, D-dimer PT 10.9 sec (9.0-12.0) 03/09/21 11:59 INR 1.0 (<1.2) 03/09/21 11:59 D-Dimer 2.47 mg/L FEU (<0.60) H 03/09/21 11:59 Abnormal lab findings: Abnormal Labs 03/09/21 03/09/21 03/09/21 11:59 11:59 11:59 WBC 14.2 H Neutrophils # 10.9 H Monocytes # 1.4 H D-Dimer 2.47 H Sodium 130 L Chloride 95 L AST 80 H Alkaline Phosphatase 319 H Total Protein 6.2 L Albumin 3.3 L Urine Protein Urine Ketones Amorphous Sediment Urine Mucus 03/09/21 11:59 WBC Neutrophils # Monocytes # D-Dimer Sodium Chloride AST Alkaline Phosphatase Total Protein Albumin Urine Protein 1+ H Urine Ketones Trace H Amorphous Sediment Rare H Urine Mucus Rare H - Diagnostic Findings Chest x-ray: image reviewed (As noted in HPI) CT scan - chest: image reviewed (As noted in HPI.) Assessment and Plan Assessment: Impression: Large left pleural effusion, most likely malignant unless proven otherwise. However the possibility of a urinothorax is to be considered considering the patient has left hydronephrosis and distal left ureteral obstruction. And the patient seems to have underlying metastatic disease exact primary is not clear and that is yet to be determined possibly breast cancer or could be hepatobiliary malignancy. History of recent left supraclavicular lymph node excision and biopsy, results of which are pending. Abnormal MRI of the abdomen highly suspicious for metastatic disease involving the liver, adrenals, and significant retroperitoneal adenopathy noted. Small ascites as noted on recent MRI. Left breast mass, malignancy is to be considered, general surgery to see on c onsultation Left hydronephrosis with ureteral obstruction Nicotine dependence syndrome. Possible pancreatic or hepatobiliary malignancy. Especially with recently elevated CA 199. Hyponatremia possible SIADH. Recommendation: Left sided thoracentesis was performed, and fluid was sent for different diagnostic studies. Awaiting the results of her lymph node biopsy/left supraclavicular. Awaiting the results of the pleural effusion, it was sent for cytology and for creatinine. Consult urology to evaluate for the left hydronephrosis GI and DVT prophylaxis. We will continue to follow. Time with Patient: Greater than 30
[2021-03-09] MEDS: SUCRALFATE 1 GM TAB PO SCH ×2 (16:56→21:15)
[2021-03-09] MEDS: HYOSCYAMINE SULFATE 0.125 MG TAB PO SCH ×2 (16:56→21:15)
[2021-03-09] MEDS: MORPHINE SULFATE 4 MG/ML SYRINGE IV PRN ×2 (17:03→21:16)
[2021-03-09 17:23] LABS: Appearance,BF Cloudy; RBC, Body Fluid 2250 /uL
[2021-03-09 17:24] LABS: Nucleated Cells, Body Fluid 1675 /uL
[2021-03-09 17:25] LABS: Mononuclear WBC,Body Fluid 70 %; Polynuclear WBC,Body Fluid 30 %; Total Cells Counted,Body Fluid 100
[2021-03-09] MEDS ORDERED: HYDROcodone/APAP 5-325MG 1 EACH TAB PO SCH (18:00)
--- NOTE | 2021-03-09 20:56 | P.CONS ---
History of Present Illness - Reason for Consult Consult date: 03/09/21 Metastatic Cancer Requesting physician: Tammi Bullock - Chief Complaint Pain - History of Present Illness This is a very nice lady who presented with abdominal pain and nausea,black stool,statered in December/2020,she went to ER,had a CT scan of abdomen/pelvis on 01/03/2021 which revealed larger retroperitoneal and gastrohepatic nodes,suspiicous liver lesions. She had MRI of adbomen on 02/25/2021 which revealed enlarging retroperitonela nodes,conglomeration if multiple nodes measured up to 10 cm. multiple suspisicious liver lesion,ascites,left pleural effusuion,left side hydronephrosis On 02/17/2021,CBC revealed neutrophilia,CMP revealed mild hyponatremia and ALK 169. She feels tired,can't lay flat,has significant abdominal and back pain,on norco as needed,black stool,constipated,no fever or chills,lost few punds since December/2020. She was initially seen by Dr. Luther in office on 03/02/21, he had a discussion with the patient that day The clinical and radiographic picture are highly suggestive of metastatic malignancy. Upper GI malignancy,lung cancer or lymphoma are in the differential diagnosis. In view of episodes of black stool,I would recommend to proceed with RGD and biopsy of left supraclavicula node. Also,to complete the work up, aCT scan of chest will be obtained. He did discuss her care with Dr Ruth,he will see her later this week. Patient was seen on 03/06/21 and underwent EGD with Dr. Millard as well as excision supraclavicular node biopsy, this pathology is still pending. She now represents to hospital as she is not feeling well. CT scan in december with massive adenopathy. CTA today reveals same. Hyponatremia and leukocytosis. Review of Systems All systems: negative Constitutional: Reports as per HPI Past Medical History Past Medical History: No Reported History Additional Past Medical History / Comment(s): " FLUID ON LUNGS " -POSSIBLE , SWELLING IN FEET, ABDOMINAL PAIN , stomach ca History of Any Multi-Drug Resistant Organisms: None Reported Past Surgical History: Joint Replacement, Orthopedic Surgery Additional Past Surgical History / Comment(s): RIGHT TOTAL KNEE, COLONOSCOPY Past Anesthesia/Blood Transfusion Reactions: No Reported Reaction Past Psychological History: No Psychological Hx Reported Smoking Status: Current every day smoker Past Alcohol Use History: Occasional Past Drug Use History: Marijuana - Past Family History Mother Family Medical History: Cancer Additional Family Medical History / Comment(s): BREAST CANCER Father Family Medical History: Cancer Additional Family Medical History / Comment(s): COLON CANCER Medications and Allergies Home Medications Medication Instructions Recorded Confirmed Type Docusate [Colace] 100 mg PO DAILY PRN 02/25/21 03/09/21 History Sucralfate [Carafate] 1 gm PO Q6H 02/25/21 03/09/21 History HYDROcodone/APAP 5-325MG [[place] 1 tab PO Q6HR 03/05/21 03/09/21 History 5-325] Hyoscyamine Sulfate [Levsin] 0.125 mg PO TID 03/05/21 03/09/21 History Allergies Allergy/AdvReac Type Severity Reaction Status Date / Time No Known Allergies Allergy Verified 03/09/21 13:13 Physical Exam Vitals: Vital Signs Temp Pulse Resp BP Pulse Ox 03/09/21 15:41 100 16 122/86 90 L 03/09/21 13:41 105 H 16 123/91 92 L 03/09/21 12:47 103 H 18 126/98 92 L 03/09/21 12:21 100 18 126/84 93 L 03/09/21 11:05 98.2 F 107 H 18 110/77 94 L Intake and Output 03/09/21 03/09/21 03/09/21 06:59 14:59 22:59 Other: Weight 72.575 kg - Constitutional General appearance: cooperative, no acute distress - EENT Eyes: EOMI ENT: NA/AT - Neck Neck: lymphadenopathy - Respiratory Respiratory: bilateral: diminished, wheezing - Cardiovascular Rhythm: irregularly irregular leg Peripheral Edema: bilateral: 2+ - Gastrointestinal General gastrointestinal: distended, hepatomegaly, soft, tenderness - Integumentary Integumentary: pale - Neurologic Neurologic: CNII-XII intact - Musculoskeletal Musculoskeletal: generalized weakness - Psychiatric Psychiatric: A&O x's 3 Results CBC & Chem 7: 03/09/21 11:59 03/09/21 11:59 Labs: Abnormal Lab Results - Last 24 Hours (Table) 03/09/21 03/09/21 03/09/21 Range/Units 11:59 11:59 11:59 WBC 14.2 H (3.8-10.6) k/uL Neutrophils # 10.9 H (1.3-7.7) k/uL Monocytes # 1.4 H (0-1.0) k/uL D-Dimer 2.47 H (<0.60) mg/L FEU Sodium 130 L (137-145) mmol/L Chloride 95 L (98-107) mmol/L AST 80 H (14-36) U/L Alkaline Phosphatase 319 H (38-126) U/L Total Protein 6.2 L (6.3-8.2) g/dL Albumin 3.3 L (3.5-5.0) g/dL Urine Protein (Negative) Urine Ketones (Negative) Amorphous Sediment (None) /hpf Urine Mucus (None) /hpf 03/09/21 Range/Units 11:59 WBC (3.8-10.6) k/uL Neutrophils # (1.3-7.7) k/uL Monocytes # (0-1.0) k/uL D-Dimer (<0.60) mg/L FEU Sodium (137-145) mmol/L Chloride (98-107) mmol/L AST (14-36) U/L Alkaline Phosphatase (38-126) U/L Total Protein (6.3-8.2) g/dL Albumin (3.5-5.0) g/dL Urine Protein 1+ H (Negative) Urine Ketones Trace H (Negative) Amorphous Sediment Rare H (None) /hpf Urine Mucus Rare H (None) /hpf CT scan - chest: report reviewed Assessment and Plan (1) Adenopathy Current Visit: Yes Status: Acute Code(s): R59.9 - ENLARGED LYMPH NODES, UNSPECIFIED SNOMED Code(s): 59055748 (2) Abdominal lymphadenopathy Current Visit: No Status: Acute Code(s): R59.0 - LOCALIZED ENLARGED LYMPH NODES SNOMED Code(s): 522840683 Plan: Assessment and Recommendations: Massive systemic adenopathy: - Await excisional node biopsy results from 03/06 - CT abdomen and Pelvis (originally ordered as outpatient and scheduled 03/10) will do while inpatient - LDH and Uric Acid - Echocardiogram in preparation for malignant picture and treatment plan - Check Hepatitis Panel - Pulmonary following for effusions Hyponatremia
--- NOTE | 2021-03-09 21:05 | US ---
EXAMINATION TYPE: US venous doppler duplex LE DATE OF EXAM: 03/09/2021 8:49 PM COMPARISON: NONE CLINICAL HISTORY: dvt. Swollen feet. No hx of DVT per patient. Hx right knee replacement. SIDE PERFORMED: Bilateral TECHNIQUE: The lower extremity deep venous system is examined utilizing real time linear array sonog cindi with graded compression, doppler sonography and color-flow sonography. VESSELS IMAGED: Common Femoral Vein Deep Femoral Vein Greater Saphenous Vein * Femoral Vein Popliteal Vein Small Saphenous Vein * Proximal Calf Veins (* superficial vessels) Right Leg: Color flow seen within veins imaged. CFV appears to compress incompletely. Possible minim al non-occlusive internal echoes within CFV. Left Leg: Color flow seen within veins imaged. CFV appears to compress incompletely. Possible minim al non-occlusive internal echoes within CFV. Hypoechoic area seen within the left groin: 3.1 x 1.8 x 1.4 cm. IMPRESSION: No evidence of acute deep vein thrombosis. Dominant left inguinal lymph node noted. There is evidence for some minimal chronic deep vein thrombosis in both femoral veins.
--- NOTE | 2021-03-09 21:31 | HP ---
HISTORY AND PHYSICAL CHIEF COMPLAINT: Shortness of breath, generalized weakness and tiredness and abdominal pain. HISTORY OF PRESENT ILLNESS: This 60-year-old woman with a past history of recently diagnosed metastatic cancer with unknown primary, history of abdominal pain, history of apparent stomach cancer, DJD, history of nicotine abuse, being followed by Dr. Og Darby in outpatient setting, the patient recently had a supraglottic left biopsy by Dr. Ruth. Final biopsy reports are pending at this time. Currently the patient is complaining of increased shortness of breath, pain and abdominal pain as well as weakness. The patient was sent to [facility] from the PCP's office. The patient found to have significant left pleural effusion and hydronephrosis. Patient had thoracocentesis and patient is being closely monitored at this time. There is no history of any fevers or rigors. No headache, loss of consciousness, seizures at this time. PAST MEDICAL HISTORY: History of recently diagnosed metastatic cancer, history of DJD, history of right total knee arthroplasty. MEDICATIONS: Carafate, Levsin, [place], Colace. Doses reviewed. ALLERGIES: None. FAMILY HISTORY: History of breast cancer in the family. SOCIAL HISTORY: History of continued ongoing nicotine abuse. REVIEW OF SYSTEMS: ENT: Diminished vision. CARDIOVASCULAR: No angina. RESPIRATORY: As mentioned earlier. GI: As mentioned earlier. : As mentioned earlier. NERVOUS SYSTEM: No numbness or weakness. ALLERGY: No asthma or hayfever. MUSCULOSKELETAL: As mentioned earlier. HEMATOLOGY/ONCOLOGY: As mentioned. ENDOCRINE: As mentioned. PHYSICAL EXAMINATION: Alert oriented x2. Pulse is 102, blood pressure 153/80, respiration 18, temperature 98.2, pulse ox 94% on room air. HEENT: Conjunctivae normal. Oral mucosa moist. NECK: No jugular venous distention. No lymph node enlargement. CARDIOVASCULAR: S1 S2 heard. RESPIRATORY: Breath sounds heard in the bases. Few scattered rhonchi and crackles. Breath sounds markedly diminished in the left lower part. ABDOMEN: Soft, nontender. No mass palpable. LEGS: No edema. NERVOUS SYSTEM: Higher functions as mentioned. Moves all 4 limbs. No focal motor or sensory deficits. SKIN: No rash. JOINTS: No joint arthropathy. LABS: WBC 14.1, hemoglobin 12.7. D-dimer is 2.47. Sodium is 130. UA noted. Alkaline phosphatase is 319, AST 80. Chest x-ray which was personally reviewed by me showed significant left pleural effusion. Chest CTA again which was reviewed personally by me showed evidence of breathing artifacts; no evidence of pulmonary embolism, but left breast mass and left axillary adenopathy, large left pleural effusion, COPD, possibly left-sided hydronephrosis. ASSESSMENT: 1. Possible metastatic malignancy with severe abdominal pain and shortness of breath. 2. Left pleural effusion possibly malignant, status post thoracocentesis. 3. Left breast mass with axillary lymphadenopathy with possible with metastatic malignancy. 4. Severe pain possibly secondary to malignancy. 5. Hydronephrosis. 6. History of degenerative joint disease. 7. History of nicotine dependence. 8. Increased WBC. 9. Elevated D-dimer with no evidence of pulmonary embolism. 10.Hyponatremia. 11.Increased AST and alkaline phosphatase are possibly secondary to malignancy. 12.Full code. RECOMMENDATIONS: This 60-year-old woman who presented with multiple complex medical issues. We will monitor the patient closely. Continue the current management and symptomatic thoracocentesis by Dr. Silva. Consult Dr. Silva as well as Dr. Ruth. Urology consult for hydronephrosis. Hematology oncology also being consulted. Otherwise, will obtain cultures. And I would also order also an ultrasound of the both legs also to rule out possible DVT as well. The prognosis is guarded because of multiple complex medical issues. Dr. Og Darby will follow. MMTYRELL / MARIEN: [id number] /
[2021-03-09] MEDS: ENOXAPARIN 40 MG/0.4 ML SYRINGE SQ SCH (22:48)
--- NOTE | 2021-03-09 23:01 | PCN ---
PROCEDURE NOTE LEFT-SIDED THORACENTESIS: PREOPERATIVE DIAGNOSIS: Left pleural effusion. POSTOP DIAGNOSIS: Left pleural effusion ANESTHESIA USED: 2 mL of 1% lidocaine. PROCEDURE DETAILS: The patient was placed in a sitting upright position, the area below the left scapula was prepared in a sterile fashion and drapes were applied. The area was earlier localized by ultrasound, and it correlated to the 8th intercostal space and tip of the scapula. The area was locally anesthetized with lidocaine after preparing the area in a sterile fashion. Then the left pleural space was entered, fluid was localized and it was a slightly yellow fluid, freely flowing. After the fluid was localized with a needle, a small tiny incision was made at the same site, and a standard thoracentesis catheter and needle were used, advanced into the same site into the pleural space until the fluid was localized again. Then, the catheter was advanced out of the needle into the pleural space and the needle was pulled out of the pleural space. Freely flowing fluid was drained, roughly 1100 mL of slightly yellow, but freely flowing fluid was removed from the pleural space. The fluid was sent for different diagnostic studies. Procedure was well tolerated and no evidence of any immediate complications. Chest x- ray was done postoperatively and showed no evidence of pneumothorax. MMODL / IJN: [id number] /
[2021-03-10] MEDS: HYDROcodone/APAP 5-325MG 1 EACH TAB PO PRN ×5 (00:17→20:45)
[2021-03-10 02:21] LABS: Total Protein, Body Fluid 3350 mg/dL
[2021-03-10 02:36] LABS: Amylase, Fluid Source Pleural Fluid; Glucose, BF Source Pleural Fluid; Glucose, Body Fluid 86 mg/dL; LDH, Body Fluid Source Pleural Fluid
[2021-03-10] MEDS: SODIUM CHLORIDE 0.9% 1,000 ML IV SCH ×2 (04:52→17:11)
[2021-03-10 06:04] LABS: ALT 21 U/L (4-34); AST 78 U/L (14-36); African American GFR (CKD) 85 (>60 ml/min/1.73 sqM); Albumin 2.8 g/dL (3.5-5.0); Alkaline Phosphatase 294 U/L (38-126); Anion Gap 4 mmol/L; Blood Urea Nitrogen 11 mg/dL (7-17); Calcium 8.6 mg/dL (8.4-10.2); Carbon Dioxide 26 mmol/L (22-30); Chloride 97 mmol/L (98-107); Globulin 2.7 g/dL; Glucose 93 mg/dL (74-99); Magnesium 1.9 mg/dL (1.6-2.3); Non-African American GFR(CKD) 74 (>60 ml/min/1.73 sqM); Potassium 4.9 mmol/L (3.5-5.1); Sodium 127 mmol/L (137-145); Total Bilirubin 0.4 mg/dL (0.2-1.3); Total Protein 5.5 g/dL (6.3-8.2); Uric Acid 3.3 mg/dL (3.7-7.4)
[2021-03-10 06:05] LABS: Basophils # (A) 0.1 k/uL (0-0.2); Basophils % (A) 1 %; Eosinophils # (A) 0.2 k/uL (0-0.7); Eosinophils % (A) 1 %; HCT 35.4 % (34.0-46.0); HGB 11.4 gm/dL (11.4-16.0); Lymphocytes # (A) 1.3 k/uL (1.0-4.8); Lymphocytes % (A) 10 %; MCH 29.2 pg (25.0-35.0); MCHC 32.2 g/dL (31.0-37.0); MCV 90.8 fL (80.0-100.0); Mean Platelet Volume 7.2; Monocytes # (A) 1.2 k/uL (0-1.0); Monocytes % (A) 9 %; Neutrophils # (A) 10.3 k/uL (1.3-7.7); Neutrophils % (A) 78 %; Platelet Count 388 k/uL (150-450); RDW 12.9 % (11.5-15.5); WBC 13.2 k/uL (3.8-10.6)
[2021-03-10 06:16] LABS: LDH 3316 U/L (313-618)
[2021-03-10] MEDS ORDERED: Potassium Replacement Protocol 1 EACH MISC MISCELLANE PRN (06:32)
[2021-03-10] MEDS: MORPHINE SULFATE 4 MG/ML SYRINGE IV PRN (07:37)
[2021-03-10] MEDS: SUCRALFATE 1 GM TAB PO SCH ×4 (07:38→20:46)
[2021-03-10] MEDS: HYOSCYAMINE SULFATE 0.125 MG TAB PO SCH ×3 (07:39→20:45)
[2021-03-10] MEDS ORDERED: PANTOPRAZOLE 40 MG/10 ML VIAL IVP SCH (09:00)
[2021-03-10] MEDS: POTASSIUM CHLORIDE ER 20 MEQ TAB.ER PO SCH (09:41)
--- NOTE | 2021-03-10 11:00 | ECHOF ---
Referral Reason:chemo MEASUREMENTS -------- HEIGHT: 162.6 cm WEIGHT: 72.6 kg BP: 123/83 RVIDd: 2.9 cm (< 3.3) IVSd: 1.2 cm (0.6 - 1.1) LVIDd: 3.3 cm (3.9 - 5.3) LVPWd: 0.9 cm (0.6 - 1.1) IVSs: 1.4 cm LVIDs: 2.8 cm LVPWs: 1.3 cm LA Diam: 3.0 cm (2.7 - 3.8) LAESV Index (A-L): 11.78 ml/m Ao Diam: 4.0 cm (2.0 - 3.7) AV Cusp: 2.1 cm (1.5 - 2.6) MV EXCURSION: 12.408 mm (> 18.000) MV EF SLOPE: 20 mm/s (70 - 150) EPSS: 0.6 cm MV E Jeff: 0.67 m/s MV DecT: 196 ms MV A Jeff: 0.92 m/s MV E/A Ratio: 0.73 RAP: 5.00 mmHg RVSP: 21.56 mmHg FINDINGS -------- Resting tachycardia (HR>100bpm). This was a technically adequate study. The left ventricular size is normal. There is borderline concentric left ventricular hypertrophy. Overall left ventricular systolic function is normal with, an EF between 65 - 70 %. The right ventricle is normal in size. Normal LA size by volume 22+/-6 ml/m2. The right atrium is normal in size. The aortic valve is trileaflet and appears structurally normal. The mitral valve is normal. Mild tricuspid regurgitation present. Right ventricular systolic pressure is normal at < 35 mmHg. There is no pulmonic regurgitation present. The aortic root is dilated measuring 4.0cm. IVC Not well visulized. There is no pericardial effusion. CONCLUSIONS -------- 1. Resting tachycardia (HR>100bpm). 2. The left ventricular size is normal. 3. There is borderline concentric left ventricular hypertrophy. 4. Overall left ventricular systolic function is normal with, an EF between 65 - 70 %. 5. Normal LA size by volume 22+/-6 ml/m2. 6. Mild tricuspid regurgitation present. 7. The aortic root is dilated measuring 4.0cm. 8. There is no pericardial effusion. SILK SPOTTER: Angelic Garcia RDCS
--- NOTE | 2021-03-10 11:37 | P.PN ---
Subjective Progress Note Date: 03/10/21 Principal diagnosis: Systemic adenopathy Status post 1100cc pleural fluid, cytology sent. She is feeling better. CT abdomen and pelvis with progression noted from last in December. Sister at bedside, patient is a daily drinker and smoker. Liver lesions 25-30 and diffuse adenopathy through body Objective - Vital Signs Vital signs: Vital Signs Temp 98.0 F 03/10/21 04:50 Pulse 102 H 03/10/21 04:50 Resp 20 03/10/21 04:50 BP 123/83 03/10/21 04:50 Pulse Ox 92 L 03/10/21 04:50 Intake & Output 03/09/21 03/10/21 03/10/21 18:59 06:59 18:59 Intake Total 120 900 Output Total 350 Balance 120 550 Weight 72.575 kg Intake: Intake, IV Titration 900 Amount Sodium Chloride 0.9% 1, 900 000 ml @ 75 mls/hr IV . [id number] JOE Rx#:[id number] Oral 120 Output: Urine 350 Other: Voiding Method Toilet # Voids 1 - Exam - Constitutional General appearance: cooperative, no acute distress - EENT Eyes: EOMI ENT: NA/AT - Neck Neck: lymphadenopathy - Respiratory Respiratory: bilateral: diminished, wheezing - Cardiovascular Rhythm: irregularly irregular leg Peripheral Edema: bilateral: 2+ - Gastrointestinal General gastrointestinal: distended, hepatomegaly, soft, tenderness - Integumentary Integumentary: pale - Neurologic Neurologic: CNII-XII intact - Musculoskeletal Musculoskeletal: generalized weakness - Psychiatric Psychiatric: A&O x's 3 - Labs CBC & Chem 7: 03/10/21 05:21 03/10/21 05:21 Labs: Abnormal Lab Results - Last 24 Hours (Table) 03/09/21 03/09/21 03/09/21 Range/Units 11:59 11:59 11:59 WBC 14.2 H (3.8-10.6) k/uL Neutrophils # 10.9 H (1.3-7.7) k/uL Monocytes # 1.4 H (0-1.0) k/uL D-Dimer 2.47 H (<0.60) mg/L FEU Sodium 130 L (137-145) mmol/L Chloride 95 L (98-107) mmol/L Osmolality (280-301) mosm/kg Uric Acid (3.7-7.4) mg/dL AST 80 H (14-36) U/L Alkaline Phosphatase 319 H (38-126) U/L Lactate Dehydrogenase (313-618) U/L Total Protein 6.2 L (6.3-8.2) g/dL Albumin 3.3 L (3.5-5.0) g/dL Urine Protein (Negative) Urine Ketones (Negative) Amorphous Sediment (None) /hpf Urine Mucus (None) /hpf 03/09/21 03/09/21 03/10/21 Range/Units 11:59 11:59 05:21 WBC 13.2 H (3.8-10.6) k/uL Neutrophils # 10.3 H (1.3-7.7) k/uL Monocytes # 1.2 H (0-1.0) k/uL D-Dimer (<0.60) mg/L FEU Sodium (137-145) mmol/L Chloride (98-107) mmol/L Osmolality 267 L (280-301) mosm/kg Uric Acid (3.7-7.4) mg/dL AST (14-36) U/L Alkaline Phosphatase (38-126) U/L Lactate Dehydrogenase (313-618) U/L Total Protein (6.3-8.2) g/dL Albumin (3.5-5.0) g/dL Urine Protein 1+ H (Negative) Urine Ketones Trace H (Negative) Amorphous Sediment Rare H (None) /hpf Urine Mucus Rare H (None) /hpf 03/10/21 Range/Units 05:21 WBC (3.8-10.6) k/uL Neutrophils # (1.3-7.7) k/uL Monocytes # (0-1.0) k/uL D-Dimer (<0.60) mg/L FEU Sodium 127 L (137-145) mmol/L Chloride 97 L (98-107) mmol/L Osmolality (280-301) mosm/kg Uric Acid 3.3 L (3.7-7.4) mg/dL AST 78 H (14-36) U/L Alkaline Phosphatase 294 H (38-126) U/L Lactate Dehydrogenase 3316 H (313-618) U/L Total Protein 5.5 L (6.3-8.2) g/dL Albumin 2.8 L (3.5-5.0) g/dL Urine Protein (Negative) Urine Ketones (Negative) Amorphous Sediment (None) /hpf Urine Mucus (None) /hpf Microbiology - Last 24 Hours (Table) 03/09/21 21:05 Urine Culture - Preliminary Urine,Clean Catch 03/09/21 15:25 Gram Stain - Preliminary Pleural Fluid Body Fluid Culture - Preliminary 03/09/21 15:25 Fungal Culture - Preliminary Pleural Fluid 03/09/21 15:25 Acid Fast Bacilli Culture - Preliminary Pleural Fluid Assessment and Plan (1) Adenopathy Current Visit: Yes Status: Acute Code(s): R59.9 - ENLARGED LYMPH NODES, UNSPECIFIED SNOMED Code(s): 70920234 (2) Abdominal lymphadenopathy Current Visit: No Status: Acute Code(s): R59.0 - LOCALIZED ENLARGED LYMPH NODES SNOMED Code(s): 391057295 Plan: Assessment and Recommendations: Massive systemic adenopathy: - Await excisional node biopsy results from 03/06 - CT abdomen and Pelvis progression noted with multiple heaptic lesions in line with metastatic disease - LDH and Uric Acid - Echocardiogram - Pulmonary following for effusions Hyponatremia Await Pathology, supraclavicular node, hoping 24-48 hours as appears to be progression since december scan. Await cytology on pleural fluid.
--- NOTE | 2021-03-10 11:43 | P.GSCN ---
History of Present Illness Consult date: 03/10/21 History of present illness: 60 yo female admitted with abdominal pain and SOB. 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 She had and abdomianl MRI 02/25/21 identifying marked progression of her disease compared to a ct scan from 12/2020. She has a significant left pleural effusion. She had a left hydronephrosis on the MRI probably secondary to the retroperitoneal nodes. Her urine is clear and her CR is normal at 0.7. There is no urological history Review of Systems All systems: negative - Constitutional Denies fever, Denies weight loss - EENT Eyes: denies blurred vision Ears, nose, mouth and throat: Denies dysphagia - Cardiovascular Denies chest pain, Denies shortness of breath - Respiratory Denies cough, Denies 7 - Gastrointestinal Reports as per HPI - Genitourinary Genitourinary: Denies dysuria, Denies hematuria - Integumentary Denies rash, Denies unusual bruising - Neurological Denies headaches, Denies syncope - Hematologic/Lymphatic Denies easy bleeding, Denies easy bruising Past Medical History Past Medical History: No Reported History Additional Past Medical History / Comment(s): " FLUID ON LUNGS " -POSSIBLE , SWELLING IN FEET, ABDOMINAL PAIN , stomach ca History of Any Multi-Drug Resistant Organisms: None Reported Past Surgical History: Joint Replacement, Orthopedic Surgery Additional Past Surgical History / Comment(s): RIGHT TOTAL KNEE, COLONOSCOPY Past Anesthesia/Blood Transfusion Reactions: No Reported Reaction Past Psychological History: No Psychological Hx Reported Smoking Status: Current every day smoker Past Alcohol Use History: Occasional Past Drug Use History: Marijuana - Past Family History Mother Family Medical History: Cancer Additional Family Medical History / Comment(s): BREAST CANCER Father Family Medical History: Cancer Additional Family Medical History / Comment(s): COLON CANCER Medications and Allergies Home Medications Medication Instructions Recorded Confirmed Type Docusate [Colace] 100 mg PO DAILY PRN 02/25/21 03/09/21 History Sucralfate [Carafate] 1 gm PO Q6H 02/25/21 03/09/21 History HYDROcodone/APAP 5-325MG [[place] 1 tab PO Q6HR 03/05/21 03/09/21 History 5-325] Hyoscyamine Sulfate [Levsin] 0.125 mg PO TID 03/05/21 03/09/21 History Allergies Allergy/AdvReac Type Severity Reaction Status Date / Time No Known Allergies Allergy Verified 03/09/21 13:13 Surgical - Exam Vital Signs Temp Pulse Resp BP Pulse Ox 98.2 F 107 H 18 110/77 94 L 03/09/21 11:05 03/09/21 11:05 03/09/21 11:05 03/09/21 11:05 03/09/21 11:05 - General well developed, well nourished, chronically ill - Eyes PERRL - ENT no hearing loss - Neck trachea midline - Respiratory normal expansion - Cardiovascular Rhythm: regular - Abdomen Abdomen: soft, non tender - Integumentary no rash - Neurologic normal sensation - Musculoskeletal normal posture - Psychiatric oriented to time, oriented to person, oriented to place, speech is normal, memory intact Results - Labs 03/10/21 05:21 03/10/21 05:21 Abnormal Lab Results - Last 24 Hours (Table) 03/09/21 03/09/21 03/09/21 Range/Units 11:59 11:59 11:59 WBC 14.2 H (3.8-10.6) k/uL Neutrophils # 10.9 H (1.3-7.7) k/uL Monocytes # 1.4 H (0-1.0) k/uL D-Dimer 2.47 H (<0.60) mg/L FEU Sodium 130 L (137-145) mmol/L Chloride 95 L (98-107) mmol/L AST 80 H (14-36) U/L Alkaline Phosphatase 319 H (38-126) U/L Total Protein 6.2 L (6.3-8.2) g/dL Albumin 3.3 L (3.5-5.0) g/dL Urine Protein (Negative) Urine Ketones (Negative) Amorphous Sediment (None) /hpf Urine Mucus (None) /hpf 03/09/21 Range/Units 11:59 WBC (3.8-10.6) k/uL Neutrophils # (1.3-7.7) k/uL Monocytes # (0-1.0) k/uL D-Dimer (<0.60) mg/L FEU Sodium (137-145) mmol/L Chloride (98-107) mmol/L AST (14-36) U/L Alkaline Phosphatase (38-126) U/L Total Protein (6.3-8.2) g/dL Albumin (3.5-5.0) g/dL Urine Protein 1+ H (Negative) Urine Ketones Trace H (Negative) Amorphous Sediment Rare H (None) /hpf Urine Mucus Rare H (None) /hpf Diabetes panel 03/09/21 Range/Units 11:59 Sodium 130 L (137-145) mmol/L Potassium 4.7 (3.5-5.1) mmol/L Chloride 95 L (98-107) mmol/L Carbon Dioxide 29 (22-30) mmol/L BUN 11 (7-17) mg/dL Creatinine 0.71 (0.52-1.04) mg/dL Glucose 96 (74-99) mg/dL Calcium 9.1 (8.4-10.2) mg/dL AST 80 H (14-36) U/L ALT 24 (4-34) U/L Alkaline Phosphatase 319 H (38-126) U/L Total Protein 6.2 L (6.3-8.2) g/dL Albumin 3.3 L (3.5-5.0) g/dL Calcium panel 03/09/21 Range/Units 11:59 Calcium 9.1 (8.4-10.2) mg/dL Albumin 3.3 L (3.5-5.0) g/dL Pituitary panel 03/09/21 Range/Units 11:59 Sodium 130 L (137-145) mmol/L Potassium 4.7 (3.5-5.1) mmol/L Chloride 95 L (98-107) mmol/L Carbon Dioxide 29 (22-30) mmol/L BUN 11 (7-17) mg/dL Creatinine 0.71 (0.52-1.04) mg/dL Glucose 96 (74-99) mg/dL Calcium 9.1 (8.4-10.2) mg/dL Adrenal panel 03/09/21 Range/Units 11:59 Sodium 130 L (137-145) mmol/L Potassium 4.7 (3.5-5.1) mmol/L Chloride 95 L (98-107) mmol/L Carbon Dioxide 29 (22-30) mmol/L BUN 11 (7-17) mg/dL Creatinine 0.71 (0.52-1.04) mg/dL Glucose 96 (74-99) mg/dL Calcium 9.1 (8.4-10.2) mg/dL Total Bilirubin 0.4 (0.2-1.3) mg/dL AST 80 H (14-36) U/L ALT 24 (4-34) U/L Alkaline Phosphatase 319 H (38-126) U/L Total Protein 6.2 L (6.3-8.2) g/dL Albumin 3.3 L (3.5-5.0) g/dL - Imaging CT scan - chest: report reviewed, image reviewed Additional studies: mri reviewed Assessment and Plan Assessment: Impression: widely metastatic and rapidly progressive cancer of yet to be determined primary. Left sided hydronephrosis probably secondary to retroperitoneal adenopathy. Recommendations: The hydro is not severe nor affecting her overall kidney function. I will not treat this until her oncologic status is furthr clarified. I will follow > THis has been discussed with the patient and she seems to understand Time with Patient: Greater than 30
--- NOTE | 2021-03-10 11:54 | P.GSCN ---
History of Present Illness Consult date: 03/10/21 History of present illness: CHIEF COMPLAINT: Generalized pain and shortness of breath HISTORY OF PRESENT ILLNESS: This is a 60-year-old female who was sent to the hospital by her PCP for increased shortness of breath and tachycardia. There are concerns about PE. She had a CTA of the chest which was negative for PE. Patient has also been complaining of vague abdominal pain or discomfort with bloating for the last 2 months. Patient had an MRI in 02/25/2021 which did show massive retroperitoneal lymphadenopathy and liver lesions. Patient also apparently had been dealing with black stools and concerns for GI bleed in December. She had EGD done with Dr. Ruth as an outpatient on 03/06/2021. Patient had EGD with biopsy as well as of excision of left supraclavicular lymph node. EGD had revealed gastritis. Biopsies are pending. Patient CTA of the chest completed yesterday showed no evidence of PE. It did show a 1.9 cm medial left breast mass, left-sided axillary lymphadenopathy, bilateral pulmonary nodules measuring up to 1.5 cm, left supraclavicular and left thoracic inlet lymphadenopathy, severe upper abdominal lymphadenopathy. Hepatic and adrenal metastasis. Perinephric nodularity also suggestive of metastatic disease. Moderate to large left pleural effusion. There is adjacent collapse of the inferior lingula and basilar left lower lobe. Delayed enhancement of left kidney. Correlate to exclude left-sided obstructive uropathy. Patient is status post left thoracentesis for her pleural effusion. Surgical service has been consulted for patient's left breast mass. PAST MEDICAL HISTORY: See list. PAST SURGICAL HISTORY: See list. MEDICATIONS: See list. ALLERGIES: See list. SOCIAL HISTORY: No illicit drug use. REVIEW OF SYSTEMS: CONSTITUTIONAL: Denies fever or chills. HEENT: Denies blurred vision, vision changes, or eye pain. Denies hemoptysis ENDOCRINE: Denies heat or cold intolerance. CARDIOVASCULAR: Denies chest pain or pressure. RESPIRATORY: No shortness of breath. GASTROINTESTINAL: Please refer to HPI NEURO: Denies history of seizures. PSYCH: No depression or suicidal ideation HEMATOLOGIC: Denies bleeding disorders. LYMPHATIC: The patient denies any lumps and bumps around the neck. GENITOURINARY: Denies any blood in urine or increased urinary frequency. MUSCULOSKELETAL: Denies myalgias. Denies joint swelling. Denies decreased range of motion beyond patients baseline. SKIN: Denies pruitis. Denies rash. PHYSICAL EXAM: VITAL SIGNS: Reviewed GENERAL: Well-developed in no acute distress. HEENT: No sclera icterus. Extraocular movements grossly intact. Moist buccal mucosa. Head is atraumatic, normocephalic. Hears conversational speech. No nasal drainage. NECK: Supple without lymphadenopathy. CHEST: Non-labored respirations and equal bilateral excursions. CARDIOVASCULAR: Palpable 2+ radial pulses. ABDOMEN: Soft. Nondistended. Nontender MUSCULOSKELETAL: No clubbing or cyanosis. NEUROLOGIC: No focal or lateralizing signs. Cranial nerves II through XII grossly intact. PSYCH: Appropriate affect. Alert and oriented to person, place and time. SKIN: Well perfused. Good skin turgor. Breast: Palpable Left breast nodule slightly larger than the size of a pea around the 7 o'clock position. No erythema. No nipple drainage LABORATORY DATA: WBC 13.2 hemoglobin 11.4 platelets 388 sodium 127 potassium 4.9 creatinine 0.86 AST 78 ALT 21 alk phos 294 lactate dehydrogenase 3316 IMAGING: CTA of the chest completed yesterday showed no evidence of PE. It did show a 1.9 cm medial left breast mass, left-sided axillary lymphadenopathy, bilateral pulmonary nodules measuring up to 1.5 cm, left supraclavicular and left thoracic inlet lymphadenopathy, severe upper abdominal lymphadenopathy. Hepatic and adrenal metastasis. Perinephric nodularity also suggestive of metastatic disea se. Moderate to large left pleural effusion. There is adjacent collapse of the inferior lingula and basilar left lower lobe. Delayed enhancement of left kidney. Correlate to exclude left-sided obstructive uropathy. ASSESSMENT: 1. Left breast mass measuring 1.[address] scan of the chest 2. Recent EGD with biopsy and excision of left supraclavicular lymph node on 03/06/2021. Biopsy results pending 3. Large left pleural effusion most likely malignant status post left thoracentesis with 1.1 L removed 4. Massive retroperitoneal lymphadenopathy. Multiple liver lesions consistent with metastatic disease noted on MRI of the abdomen on 02/25/2021 5. Hyponatremia PLAN: -Await lymph node biopsy result to assess if patient has metastatic breast cancer -Metastatic workup in progress per oncology -Follow up on biopsy results from EGD and supraclavicular lymph node -Continue supportive care Thank you for this consult Physician Service Architect note has been reviewed by physician. Signing provider agrees with the documented findings, assessment, and plan of care. Past Medical History Past Medical History: No Reported History Additional Past Medical History / Comment(s): " FLUID ON LUNGS " -POSSIBLE , SWELLING IN FEET, ABDOMINAL PAIN , stomach ca History of Any Multi-Drug Resistant Organisms: None Reported Past Surgical History: Joint Replacement, Orthopedic Surgery Additional Past Surgical History / Comment(s): RIGHT TOTAL KNEE, COLONOSCOPY Past Anesthesia/Blood Transfusion Reactions: No Reported Reaction Past Psychological History: No Psychological Hx Reported Smoking Status: Current every day smoker Past Alcohol Use History: Occasional Past Drug Use History: Marijuana - Past Family History Mother Family Medical History: Cancer Additional Family Medical History / Comment(s): BREAST CANCER Father Family Medical History: Cancer Additional Family Medical History / Comment(s): COLON CANCER Medications and Allergies Home Medications Medication Instructions Recorded Confirmed Type Docusate [Colace] 100 mg PO DAILY PRN 02/25/21 03/09/21 History Sucralfate [Carafate] 1 gm PO Q6H 02/25/21 03/09/21 History HYDROcodone/APAP 5-325MG [[place] 1 tab PO Q6HR 03/05/21 03/09/21 History 5-325] Hyoscyamine Sulfate [Levsin] 0.125 mg PO TID 03/05/21 03/09/21 History Allergies Allergy/AdvReac Type Severity Reaction Status Date / Time No Known Allergies Allergy Verified 03/09/21 13:13 Surgical - Exam Vital Signs Temp Pulse Resp BP Pulse Ox 98.2 F 107 H 18 110/77 94 L 03/09/21 11:05 03/09/21 11:05 03/09/21 11:05 03/09/21 11:05 03/09/21 11:05 Results - Labs 03/10/21 05:21 03/10/21 05:21 Abnormal Lab Results - Last 24 Hours (Table) 03/09/21 03/09/21 03/09/21 Range/Units 11:59 11:59 11:59 WBC 14.2 H (3.8-10.6) k/uL Neutrophils # 10.9 H (1.3-7.7) k/uL Monocytes # 1.4 H (0-1.0) k/uL D-Dimer 2.47 H (<0.60) mg/L FEU Sodium 130 L (137-145) mmol/L Chloride 95 L (98-107) mmol/L Osmolality (280-301) mosm/kg Uric Acid (3.7-7.4) mg/dL AST 80 H (14-36) U/L Alkaline Phosphatase 319 H (38-126) U/L Lactate Dehydrogenase (313-618) U/L Total Protein 6.2 L (6.3-8.2) g/dL Albumin 3.3 L (3.5-5.0) g/dL Urine Protein (Negative) Urine Ketones (Negative) Amorphous Sediment (None) /hpf Urine Mucus (None) /hpf 03/09/21 03/09/21 03/10/21 Range/Units 11:59 11:59 05:21 WBC 13.2 H (3.8-10.6) k/uL Neutrophils # 10.3 H (1.3-7.7) k/uL Monocytes # 1.2 H (0-1.0) k/uL D-Dimer (<0.60) mg/L FEU Sodium (137-145) mmol/L Chloride (98-107) mmol/L Osmolality 267 L (280-301) mosm/kg Uric Acid (3.7-7.4) mg/dL AST (14-36) U/L Alkaline Phosphatase (38-126) U/L Lactate Dehydrogenase (313-618) U/L Total Protein (6.3-8.2) g/dL Albumin (3.5-5.0) g/dL Urine Protein 1+ H (Negative) Urine Ketones Trace H (Negative) Amorphous Sediment Rare H (None) /hpf Urine Mucus Rare H (None) /hpf 03/10/21 Range/Units 05:21 WBC (3.8-10.6) k/uL Neutrophils # (1.3-7.7) k/uL Monocytes # (0-1.0) k/uL D-Dimer (<0.60) mg/L FEU Sodium 127 L (137-145) mmol/L Chloride 97 L (98-107) mmol/L Osmolality (280-301) mosm/kg Uric Acid 3.3 L (3.7-7.4) mg/dL AST 78 H (14-36) U/L Alkaline Phosphatase 294 H (38-126) U/L Lactate Dehydrogenase 3316 H (313-618) U/L Total Protein 5.5 L (6.3-8.2) g/dL Albumin 2.8 L (3.5-5.0) g/dL Urine Protein (Negative) Urine Ketones (Negative) Amorphous Sediment (None) /hpf Urine Mucus (None) /hpf Microbiology - Last 24 Hours (Table) 03/09/21 21:05 Urine Culture - Preliminary Urine,Clean Catch 03/09/21 15:25 Gram Stain - Preliminary Pleural Fluid Body Fluid Culture - Preliminary 03/09/21 15:25 Fungal Culture - Preliminary Pleural Fluid 03/09/21 15:25 Acid Fast Bacilli Culture - Preliminary Pleural Fluid Diabetes panel 03/09/21 03/10/21 Range/Units 11:59 05:21 Sodium 130 L 127 L (137-145) mmol/L Potassium 4.7 4.9 (3.5-5.1) mmol/L Chloride 95 L 97 L (98-107) mmol/L Carbon Dioxide 29 26 (22-30) mmol/L BUN 11 11 (7-17) mg/dL Creatinine 0.71 0.86 (0.52-1.04) mg/dL Glucose 96 93 (74-99) mg/dL Calcium 9.1 8.6 (8.4-10.2) mg/dL AST 80 H 78 H (14-36) U/L ALT 24 21 (4-34) U/L Alkaline Phosphatase 319 H 294 H (38-126) U/L Total Protein 6.2 L 5.5 L (6.3-8.2) g/dL Albumin 3.3 L 2.8 L (3.5-5.0) g/dL Calcium panel 03/09/21 03/10/21 Range/Units 11:59 05:21 Calcium 9.1 8.6 (8.4-10.2) mg/dL Albumin 3.3 L 2.8 L (3.5-5.0) g/dL Pituitary panel 03/09/21 03/10/21 Range/Units 11:59 05:21 Sodium 130 L 127 L (137-145) mmol/L Potassium 4.7 4.9 (3.5-5.1) mmol/L Chloride 95 L 97 L (98-107) mmol/L Carbon Dioxide 29 26 (22-30) mmol/L BUN 11 11 (7-17) mg/dL Creatinine 0.71 0.86 (0.52-1.04) mg/dL Glucose 96 93 (74-99) mg/dL Calcium 9.1 8.6 (8.4-10.2) mg/dL Adrenal panel 03/09/21 03/10/21 Range/Units 11:59 05:21 Sodium 130 L 127 L (137-145) mmol/L Potassium 4.7 4.9 (3.5-5.1) mmol/L Chloride 95 L 97 L (98-107) mmol/L Carbon Dioxide 29 26 (22-30) mmol/L BUN 11 11 (7-17) mg/dL Creatinine 0.71 0.86 (0.52-1.04) mg/dL Glucose 96 93 (74-99) mg/dL Calcium 9.1 8.6 (8.4-10.2) mg/dL Total Bilirubin 0.4 0.4 (0.2-1.3) mg/dL AST 80 H 78 H (14-36) U/L ALT 24 21 (4-34) U/L Alkaline Phosphatase 319 H 294 H (38-126) U/L Total Protein 6.2 L 5.5 L (6.3-8.2) g/dL Albumin 3.3 L 2.8 L (3.5-5.0) g/dL
[2021-03-10] MEDS: HYDROmorphone 0.5 MG/0.5 ML SYRINGE IVP PRN ×3 (12:11→20:46)
--- NOTE | 2021-03-10 12:12 | P.PN ---
Subjective Progress Note Date: 03/10/21 Principal diagnosis: Generalized weakness, abdominal discomfort, bloating, pleural effusion This is a 60-year-old female who has not been feeling well since December of 2020. Patient has been complaining of vague abdominal discomfort and some bloating of her stomach for the last 2 months. A KUB was done on 01/02/2021, and it showed subsegmental atelectasis posterior right lung base. There was no evidence of acute abdomen at the time. And no evidence of mass. CT of the abdomen and pelvis was done on 01/03/2021, this was done in the ER, and there was evidence of extensive retroperitoneal and gastrohepatic lymphadenopathy. The radiologist at that time recommended MRI of the abdomen. MRI of the abdomen was not done on 14/06/2021, however prior to that on 02/2021, patient was seen in the ER again, and her complaint was mostly urinary retention. No major workup was done at the time. Her MRI on 02/25/21, showed massive retroperitoneal lymphadenopathy significantly increased compared to previous CT of the abdomen and pelvis. There was evidence of anterior displacement of the pancreas due to adenopathy. There was also multiple liver lesions significantly increased compared to previous CT of the abdomen and pelvis consistent with metastatic disease. There was also evidence of left sided hydronephrosis and proximal hydroureter. There was also evidence of abdominal ascites. The radiologist also raise the possibility of distal ureteral obstruction. Patient was referred to Dr. Luther on outpatient basis, and he recommended a referral to Dr. David schilling. Patient underwent EGD she also underwent excision of left supraclavicular lymph node. There was no evidence of inflammatory or polypoid lesions throughout the stomach or duodenum. The pathology on the left supraclavicular lymph node is pending. Patient was seen by her primary care physician today with multiple constitutional complaints, and he recommended that the patient goes to the ER again. CT of the chest was done, and it showed no evidence of pulmonary embolism. It did show evidence of 1.9 cm left breast mass and left sided axillary lymphadenopathy it also showed bilateral pulmonary nodules and left supraclavicular as well as left thoracic inlet lymphadenopathy significant upper abdominal lymphadenopathy and hepatic as well as adrenal metastatic lesions were noted. In addition to this there was a moderate to large left pleural effusion and collapse of the inferior lingula. With a small right-sided pleural effusion. Considering the findings, I was asked to see this patient on consu ltation I did evaluate the patient in the ER, went ahead and performed left- sided thoracentesis which is mostly diagnostic and therapeutic at the same time. Fluid was sent for different diagnostic studies including cytology and creatinine level was ordered to make sure that the fluid is not urinothorax . I was able to drain 1100 mL of fluid and again this was sent for different diagnostic studies. I did get the report on the biopsies that were done by Dr. schilling, and these are all pending. On 03/10/2021 patient seen in follow-up on oncology floor. She is sitting up in her bed, she is on room air, her pulse ox is 92%, she states she feels like her breathing is short, and she is taking shallow breaths, however she is not tachypneic, yesterday she underwent left-sided thoracentesis by Dr. Cross and 1100 mL of slightly yellow pleural fluid was removed, pleural fluid analysis showed an exudative fluid with a total protein of 3.3 g, fluid 8 LDH is 539, fluid amylase was 38, polynuclear WBCs were 30, and mononuclear WBCs were 70, fluid glucose was 86. Pleural fluid cultures are pending, cytology is pending. Patient still complains of pain across the abdomen, she is requesting her pain meds to be increased, she is currently on [place] 5325 milligrams every 4 hours, and Dilaudid 0.5 mg every 3 hours for breakthrough pain. Objective - Vital Signs Vital signs: Vital Signs Temp 97.5 F L 03/10/21 11:20 Pulse 99 03/10/21 11:20 Resp 20 03/10/21 11:20 BP 110/74 03/10/21 11:20 Pulse Ox 92 L 03/10/21 11:20 Intake & Output 03/09/21 03/10/21 03/10/21 18:59 06:59 18:59 Intake Total 120 900 Output Total 350 Balance 120 550 Weight 72.575 kg Intake: Intake, IV Titration 900 Amount Sodium Chloride 0.9% 1, 900 000 ml @ 75 mls/hr IV . [id number] [facility] Rx#:[id number] Oral 120 Output: Urine 350 Other: Voiding Method Toilet # Voids 1 - Exam GENERAL EXAM: Alert, 60-year-old white female, on room air with a pulse ox of 92%, comfortable in no apparent distress. HEAD: Normocephalic/atraumatic. EYES: Normal reaction of pupils, equal size. Conjunctiva pink, sclera white. NOSE: Clear with pink turbinates. THROAT: No erythema or exudates. NECK: No masses, no JVD, no thyroid enlargement, no adenopathy. CHEST: No chest wall deformity. Symmetrical expansion. LUNGS: Equal air entry with diminished breath sounds at bilateral bases CVS: Regular rate and rhythm, normal S1 and S2, no gallops, no murmurs, no rubs ABDOMEN: Soft, nontender. No hepatosplenomegaly, normal bowel sounds, no guarding or rigidity. EXTREMITIES: No clubbing, no edema, no cyanosis, 2+ pulses and upper and lower extremities. MUSCULOSKELETAL: Muscle strength and tone normal. SPINE: No scoliosis or deformity SKIN: No rashes CENTRAL NERVOUS SYSTEM: Alert and oriented -3. No focal deficits, tone is nor mal in all 4 extremities. PSYCHIATRIC: Alert and oriented -3. Appropriate affect. Intact judgment and insight. - Labs CBC & Chem 7: 03/10/21 05:21 03/10/21 05:21 Labs: Abnormal Lab Results - Last 24 Hours (Table) 03/09/21 03/09/21 03/09/21 Range/Units 11:59 11:59 11:59 WBC 14.2 H (3.8-10.6) k/uL Neutrophils # 10.9 H (1.3-7.7) k/uL Monocytes # 1.4 H (0-1.0) k/uL D-Dimer 2.47 H (<0.60) mg/L FEU Sodium 130 L (137-145) mmol/L Chloride 95 L (98-107) mmol/L Osmolality (280-301) mosm/kg Uric Acid (3.7-7.4) mg/dL AST 80 H (14-36) U/L Alkaline Phosphatase 319 H (38-126) U/L Lactate Dehydrogenase (313-618) U/L Total Protein 6.2 L (6.3-8.2) g/dL Albumin 3.3 L (3.5-5.0) g/dL Urine Protein (Negative) Urine Ketones (Negative) Amorphous Sediment (None) /hpf Urine Mucus (None) /hpf 03/09/21 03/09/21 03/10/21 Range/Units 11:59 11:59 05:21 WBC 13.2 H (3.8-10.6) k/uL Neutrophils # 10.3 H (1.3-7.7) k/uL Monocytes # 1.2 H (0-1.0) k/uL D-Dimer (<0.60) mg/L FEU Sodium (137-145) mmol/L Chloride (98-107) mmol/L Osmolality 267 L (280-301) mosm/kg Uric Acid (3.7-7.4) mg/dL AST (14-36) U/L Alkaline Phosphatase (38-126) U/L Lactate Dehydrogenase (313-618) U/L Total Protein (6.3-8.2) g/dL Albumin (3.5-5.0) g/dL Urine Protein 1+ H (Negative) Urine Ketones Trace H (Negative) Amorphous Sediment Rare H (None) /hpf Urine Mucus Rare H (None) /hpf 03/10/21 Range/Units 05:21 WBC (3.8-10.6) k/uL Neutrophils # (1.3-7.7) k/uL Monocytes # (0-1.0) k/uL D-Dimer (<0.60) mg/L FEU Sodium 127 L (137-145) mmol/L Chloride 97 L (98-107) mmol/L Osmolality (280-301) mosm/kg Uric Acid 3.3 L (3.7-7.4) mg/dL AST 78 H (14-36) U/L Alkaline Phosphatase 294 H (38-126) U/L Lactate Dehydrogenase 3316 H (313-618) U/L Total Protein 5.5 L (6.3-8.2) g/dL Albumin 2.8 L (3.5-5.0) g/dL Urine Protein (Negative) Urine Ketones (Negative) Amorphous Sediment (None) /hpf Urine Mucus (None) /hpf Microbiology - Last 24 Hours (Table) 03/09/21 21:05 Urine Culture - Preliminary Urine,Clean Catch 03/09/21 15:25 Gram Stain - Preliminary Pleural Fluid Body Fluid Culture - Preliminary 03/09/21 15:25 Fungal Culture - Preliminary Pleural Fluid 03/09/21 15:25 Acid Fast Bacilli Culture - Preliminary Pleural Fluid Assessment and Plan Plan: Assessment: #1. Large left-sided pleural effusion, most likely malignant. Status post left thoracentesis on 03/09/2021 with removal of 1.1 liter of pleural fluid and pleural fluid analysis showed exudative fluid, cultures and cytology are pending. #2. Possible urinary pneumothorax was being considered, and pleural fluid was sent for creatinine, and specific gravity, however we don't have those results. This was being considered on the basis of CT abdomen showing left hydronephrosis and distal left ureteral obstruction #3. History of recent left supraclavicular lymph node excision on 03/06/2021, biopsy results are pending #4. Abnormal MRI of the abdomen did have a suspicious for metastatic disease involving the liver, adrenals and significant retroperitoneal adenopathy #5. Small ascites #6. Left breast mass, with consideration for malignancy, general surgery to see him on consultation #7. Left hydronephrosis with ureteral obstruction #8. Nicotine dependence syndrome #9. Possible pancreatic or hepatobiliary malignancy especially in view of eleva karl [place] 199 #10. Hyponatremia with possible ascites Plan: Await results of the pleural fluid cytology and left supraclavicular lymph node biopsy Patient is on room air Feels short of breath but appears to be in no acute distress Pain control GI/DVT prophylaxis We'll continue to follow I performed a history & physical examination of the patient and discussed their management with my nurse practitioner, Maria R Martínez. I reviewed the nurse practitioner's note and agree with the documented findings and plan of care. Lung sounds are positive for diminished breath sounds. The findings and the impression was discussed with the patient. I attest to the documentation by the nurse practitioner. Time with Patient: Less than 30
[2021-03-10] MEDS: LACTULOSE 20 GM/30 ML CUP PO SCH ×3 (12:33→23:39)
[2021-03-10] MEDS: IOPAMIDOL CONTRAST (ORAL USE) VIAL PO PRN ×2 (12:56→14:22)
--- NOTE | 2021-03-10 16:18 | CT ---
EXAMINATION TYPE: CT abdomen pelvis w con DATE OF EXAM: 03/10/2021 COMPARISON: 01/03/2021 HISTORY: Stomach ca, observe for mets CT DLP: 1196.8 mGycm CONTRAST: CT scan of the abdomen and pelvis is performed with Oral Contrast and with IV Contrast, patient injec karl with 100 mL of Isovue 300. FINDINGS: LUNG BASES-: Interval development of basilar pleural effusions and atelectasis. Suggestion of left lo wer lobe nodularity. LIVER/GB: Marked increase in hepatic lesions. Total number of lesions is between 25 and 30. Lesions i nvolve all lobes and segments. The largest lesion within the left hepatic lobe and measures approxima tely 5 cm. The gallbladder is contracted and demonstrates tiny gallstones. PANCREAS: No inflammation. No distinct mass. SPLEEN: No splenic enlargement. No lesion seen. ADRENALS: Bilateral adrenal masses noted. KIDNEYS/BLADDER: There is soft tissue adjacent to the left renal hilum measuring 2.2 cm. There is lef t hydronephrosis moderate in degree with left perinephric stranding. This may be a result of obstruct ion from the aforementioned pelvic iliac adenopathy. No visible renal calculus is seen. The right kid dora appears unremarkable. BOWEL: There appear to be changes of partial gastrectomy. Posterior gastric wall thickening is noted. GENITAL ORGANS: No gross abnormality. LYMPH NODES: There is circumferential retroperitoneal adenopathy with marked interval progression. Th ere is gastrohepatic ligament adenopathy measuring an estimated 9.1 x 8.3 cm. There is celiac axis an d SMA axis adenopathy noted with paraAortic and aortoenteric caval adenopathy seen as well. Retroperi toneal lymph node mass measures 7.5 x 6.9 cm. Adenopathy extends into the internal left iliac chain m easuring 3.7 cm and to a lesser extent the right internal iliac chain measuring 1.8 cm. Left external iliac chain adenopathy noted measuring 2.5 cm. AORTA: No significant abnormality. OSSEOUS STRUCTURES: No significant abnormality is seen. OTHER: No significant additional abnormality is seen. IMPRESSION: 1. Findings compatible with significant disease progression with suspected metastatic disease to the lungs, marked interval increase in hepatic metastatic lesions as well as encasing retroperitoneal and gastrohepatic ligament adenopathy. Adenopathy extends into the pelvis as noted above. 2. Suspect obstruction left ureter related to the aforementioned adenopathy. Left perinephric strandi ng and edema noted with decreased excretion of contrast. 3. Bilateral adrenal masses.
--- NOTE | 2021-03-10 19:16 | P.PN ---
Subjective Progress Note Date: 03/10/21 Principal diagnosis: Systemic adenopathy Pleural effusions COPD March 10, 2021 60-year-old female was admitted to the hospital for diffuse abdominal pain with associated shortness of breath, tachycardia and generalized weakness.Patient had extensive diagnostic workup in emergency department with the CTA of the chest with no apparent pulmonary embolism's with pleural ef fusions. Consulted pulmonary critical care for thoracentesis output of thoracentesis approximation 1 L. Patient recently diagnosed with metastatic cancer of unknown origin, Being followed by oncology.Patient has significant medical history of possible stomach cancer, degenerative disc disease, and n icotine abuse. Multiple consult on board for severity of illness. Upon evaluation this a.m., patient resting comfortably in bed, and no apparent acute signs of distress. Patient continues to endorse diffuse abdominal pain and mild shortness of breath. Patient denies fever, chills chest pain, palpitations, or diarrhea at this time. Awaiting on labs and diagnostic testing results. Objective - Vital Signs Vital signs: Vital Signs Temp 97.5 F L 03/10/21 11:20 Pulse 99 03/10/21 11:20 Resp 20 03/10/21 11:20 BP 110/74 03/10/21 11:20 Pulse Ox 92 L 03/10/21 11:20 Intake & Output 03/09/21 03/10/21 03/10/21 18:59 06:59 18:59 Intake Total 120 900 900 Output Total 350 Balance 120 550 900 Weight 72.575 kg Intake: Intake, IV Titration 900 900 Amount Sodium Chloride 0.9% 1, 900 900 000 ml @ 75 mls/hr IV . [id number] [facility] Rx#:[id number] Oral 120 Output: Urine 350 Other: Voiding Method Toilet # Voids 1 6 # Bowel Movements 3 - Constitutional General appearance: Present: mild distress - EENT Eyes: Present: EOMI, PERRLA ENT: Present: hard of hearing Ears: bilateral: normal - Neck Neck: Present: normal ROM Carotids: bilateral: upstroke normal Thyroid: bilateral: normal size - Respiratory Respiratory: bilateral: CTA (Anterior and posterior lung [place]) - Cardiovascular Details: Sinus tachycardia Heart rate: 104 Rhythm: regular Heart sounds: normal: S1, S2 - Peripheral pulses radial pulse Peripheral Pulses: bilateral: Normal femoral Peripheral Pulses: bilateral: Normal - Gastrointestinal General gastrointestinal: Present: decreased bowel sounds, distended, tenderness Localized gastrointestinal: tender: diffuse - Integumentary Integumentary: Present: decreased turgor, pale - Neurologic Neurologic: Present: CNII-XII intact - Musculoskeletal Musculoskeletal: Present: generalized weakness - Psychiatric Psychiatric: Present: A&O x's 3, appropriate affect, intact judgment & insight - Labs CBC & Chem 7: 03/10/21 05:21 03/10/21 05:21 Labs: Abnormal Lab Results - Last 24 Hours (Table) 03/09/21 03/10/21 03/10/21 Range/Units 11:59 05:21 05:21 WBC 13.2 H (3.8-10.6) k/uL Neutrophils # 10.3 H (1.3-7.7) k/uL Monocytes # 1.2 H (0-1.0) k/uL Sodium 127 L (137-145) mmol/L Chloride 97 L (98-107) mmol/L Osmolality 267 L (280-301) mosm/kg Uric Acid 3.3 L (3.7-7.4) mg/dL AST 78 H (14-36) U/L Alkaline Phosphatase 294 H (38-126) U/L Lactate Dehydrogenase 3316 H (313-618) U/L Total Protein 5.5 L (6.3-8.2) g/dL Albumin 2.8 L (3.5-5.0) g/dL Microbiology - Last 24 Hours (Table) 03/09/21 15:25 Gram Stain - Preliminary Pleural Fluid Body Fluid Culture - Preliminary 03/09/21 15:25 Acid Fast Bacilli Smear - Final Pleural Fluid Acid Fast Bacilli Culture - Preliminary 03/09/21 21:05 Urine Culture - Preliminary Urine,Clean Catch 03/09/21 15:25 Fungal Culture - Preliminary Pleural Fluid Assessment and Plan Assessment: Possible metastatic malignancy abdominal pain shortness of breath Left pleural effusion status post thoracentesis, awaiting on pathology awaiting for malignancy, Awaiting on pathology report Left breast mass with axillary Lymphadenopathy with possible malignancy,awaiting and pathology report Intractable pain, Continue analgesics as needed Hydronephrosis, Continue consultation with urology degenerative joint disc disease nicotine dependence Full code Plan: Systemic adenopathy, continue consultation and recommendations from hematology and oncology pleural effusions, continue to monitor closely with pulmonary critical care for recommendations and treatment plan awaiting pathology reports continue to monitor vital signs and diagnostic testing continue to medically manage patient further recommendations to come based on patient's clinical condition Time with Patient: Greater than 30
[2021-03-10] MEDS: ENOXAPARIN 40 MG/0.4 ML SYRINGE SQ SCH (20:45)
[2021-03-11] MEDS: HYDROcodone/APAP 5-325MG 1 EACH TAB PO PRN ×4 (03:00→17:44)
[2021-03-11] MEDS: HYDROmorphone 0.5 MG/0.5 ML SYRINGE IVP PRN ×4 (03:01→17:41)
[2021-03-11 05:58] LABS: Basophils # (A) 0.1 k/uL (0-0.2); Basophils % (A) 1 %; Eosinophils # (A) 0.2 k/uL (0-0.7); Eosinophils % (A) 2 %; Lymphocytes # (A) 1.1 k/uL (1.0-4.8); Lymphocytes % (A) 8 %; MCH 29.7 pg (25.0-35.0); MCHC 32.4 g/dL (31.0-37.0); MCV 91.7 fL (80.0-100.0); Mean Platelet Volume 7.4; Monocytes # (A) 1.2 k/uL (0-1.0); Monocytes % (A) 9 %; Neutrophils # (A) 10.8 k/uL (1.3-7.7); Neutrophils % (A) 79 %; Platelet Count 372 k/uL (150-450); WBC 13.6 k/uL (3.8-10.6)
[2021-03-11] MEDS: SODIUM CHLORIDE 0.9% 1,000 ML IV SCH (06:06)
[2021-03-11] MEDS: PANTOPRAZOLE 40 MG TABLET PO SCH (08:02)
[2021-03-11] MEDS: SUCRALFATE 1 GM TAB PO SCH ×4 (08:03→22:10)
[2021-03-11] MEDS: HYOSCYAMINE SULFATE 0.125 MG TAB PO SCH ×3 (08:04→22:09)
[2021-03-11] MEDS: LACTULOSE 20 GM/30 ML CUP PO SCH ×4 (08:05→22:09)
--- NOTE | 2021-03-11 11:41 | P.PN ---
Subjective Progress Note Date: 03/11/21 Principal diagnosis: Generalized weakness, abdominal discomfort, bloating, pleural effusion This is a 60-year-old female who has not been feeling well since December of 2020. Patient has been complaining of vague abdominal discomfort and some bloating of her stomach for the last 2 months. A KUB was done on 01/02/2021, and it showed subsegmental atelectasis posterior right lung base. There was no evidence of acute abdomen at the time. And no evidence of mass. CT of the abdomen and pelvis was done on 01/03/2021, this was done in the ER, and there was evidence of extensive retroperitoneal and gastrohepatic lymphadenopathy. The radiologist at that time recommended MRI of the abdomen. MRI of the abdomen was not done on 14/06/2021, however prior to that on 02/2021, patient was seen in the ER again, and her complaint was mostly urinary retention. No major workup was done at the time. Her MRI on 02/25/21, showed massive retroperitoneal lymphadenopathy significantly increased compared to previous CT of the abdomen and pelvis. There was evidence of anterior displacement of the pancreas due to adenopathy. There was also multiple liver lesions significantly increased compared to previous CT of the abdomen and pelvis consistent with metastatic disease. There was also evidence of left sided hydronephrosis and proximal hydroureter. There was also evidence of abdominal ascites. The radiologist also raise the possibility of distal ureteral obstruction. Patient was referred to Dr. Luther on outpatient basis, and he recommended a referral to Dr. David schilling. Patient underwent EGD she also underwent excision of left supraclavicular lymph node. There was no evidence of inflammatory or polypoid lesions throughout the stomach or duodenum. The pathology on the left supraclavicular lymph node is pending. Patient was seen by her primary care physician today with multiple constitutional complaints, and he recommended that the patient goes to the ER again. CT of the chest was done, and it showed no evidence of pulmonary embolism. It did show evidence of 1.9 cm left breast mass and left sided axillary lymphadenopathy it also showed bilateral pulmonary nodules and left supraclavicular as well as left thoracic inlet lymphadenopathy significant upper abdominal lymphadenopathy and hepatic as well as adrenal metastatic lesions were noted. In addition to this there was a moderate to large left pleural effusion and collapse of the inferior lingula. With a small right-sided pleural effusion. Considering the findings, I was asked to see this patient on consu ltation I did evaluate the patient in the ER, went ahead and performed left- sided thoracentesis which is mostly diagnostic and therapeutic at the same time. Fluid was sent for different diagnostic studies including cytology and creatinine level was ordered to make sure that the fluid is not urinothorax . I was able to drain 1100 mL of fluid and again this was sent for different diagnostic studies. I did get the report on the biopsies that were done by Dr. schilling, and these are all pending. On 03/10/2021 patient seen in follow-up on oncology floor. She is sitting up in her bed, she is on room air, her pulse ox is 92%, she states she feels like her breathing is short, and she is taking shallow breaths, however she is not tachypneic, yesterday she underwent left-sided thoracentesis by Dr. Cross and 1100 mL of slightly yellow pleural fluid was removed, pleural fluid analysis showed an exudative fluid with a total protein of 3.3 g, fluid 8 LDH is 539, fluid amylase was 38, polynuclear WBCs were 30, and mononuclear WBCs were 70, fluid glucose was 86. Pleural fluid cultures are pending, cytology is pending. Patient still complains of pain across the abdomen, she is requesting her pain meds to be increased, she is currently on [place] 5325 milligrams every 4 hours, and Dilaudid 0.5 mg every 3 hours for breakthrough pain. On 03/11/2021 patient seen in follow-up on oncology floor. Left supraclavicular lymph node biopsy results are still pending, pleural fluid cytology results are also pending. Patient is awake and alert, in no acute distress, seems to be much more comfortable on today's exam, and does not appear to be in no acute distress, she is breathing comfortably, room air pulse ox is 99%, and she is afebrile, no complaints of chest discomfort, no abdominal discomfort. She is afebrile, does get short of breath with exertion. No cough no wheezing, no hemoptysis, CT of the abdomen and pelvis was completed showing suspected metastatic disease to the lungs, marked interval increase in hepatic metastatic lesions as well as encasing retroperitoneal and gastrohepatic ligament adenopathy, adenopathy extends into the pelvis. There was a suspected obstruction of the left ureter related to the retroperitoneal adenopathy, there is left perinephric stranding and edema and bilateral adrenal masses were also noted. Patient remains on 0.9 normal saline infusing at a rate of 75 ML per hour, today's labs showed white blood cell count of 13.6, hemoglobin of 11, serum sodium yesterday was down to 127, LDH was 3316. Pleural fluid cultures have been negative, blood and urine cultures have been negative Objective - Vital Signs Vital signs: Vital Signs Temp 98 F 03/11/21 02:00 Pulse 101 H 03/11/21 02:00 Resp 20 03/11/21 02:00 BP 115/73 03/11/21 02:00 Pulse Ox 92 L 03/11/21 07:45 Intake & Output 03/10/21 03/11/21 03/11/21 18:59 06:59 18:59 Intake Total 900 1380 Balance 900 1380 Intake: Intake, IV Titration 900 900 Amount Sodium Chloride 0.9% 1, 900 900 000 ml @ 75 mls/hr IV . [id number] [facility] Rx#:[id number] Oral 480 Other: Voiding Method Toilet Toilet # Voids 6 2 # Bowel Movements 3 - Exam GENERAL EXAM: Alert, 60-year-old white female, on room air with a pulse ox of 99%, comfortable in no apparent distress. HEAD: Normocephalic/atraumatic. EYES: Normal reaction of pupils, equal size. Conjunctiva pink, sclera white. NOSE: Clear with pink turbinates. THROAT: No erythema or exudates. NECK: No masses, no JVD, no thyroid enlargement, no adenopathy. CHEST: No chest wall deformity. Symmetrical expansion. LUNGS: Equal air entry with diminished breath sounds at bilateral bases CVS: Regular rate and rhythm, normal S1 and S2, no gallops, no murmurs, no rubs ABDOMEN: Soft, nontender. No hepatosplenomegaly, normal bowel sounds, no guarding or rigidity. EXTREMITIES: No clubbing, no edema, no cyanosis, 2+ pulses and upper and lower extremities. MUSCULOSKELETAL: Muscle strength and tone normal. SPINE: No scoliosis or deformity SKIN: No rashes CENTRAL NERVOUS SYSTEM: Alert and oriented -3. No focal deficits, tone is normal in all 4 extremities. PSYCHIATRIC: Alert and oriented -3. Appropriate affect. Intact judgment and insight. - Labs CBC & Chem 7: 03/11/21 05:32 03/10/21 05:21 Labs: Abnormal Lab Results - Last 24 Hours (Table) 03/11/21 Range/Units 05:32 WBC 13.6 H (3.8-10.6) k/uL RBC 3.70 L (3.80-5.40) m/uL Hgb 11.0 L (11.4-16.0) gm/dL Neutrophils # 10.8 H (1.3-7.7) k/uL Monocytes # 1.2 H (0-1.0) k/uL Microbiology - Last 24 Hours (Table) 03/09/21 21:05 Urine Culture - Final Urine,Clean Catch 03/09/21 20:08 Blood Culture - Preliminary Blood No Growth after 24 hours 03/09/21 15:25 Gram Stain - Preliminary Pleural Fluid Body Fluid Culture - Preliminary 03/09/21 15:25 Acid Fast Bacilli Smear - Final Pleural Fluid Acid Fast Bacilli Culture - Preliminary Assessment and Plan Plan: Assessment: #1. Large left-sided pleural effusion, most likely malignant. Status post left thoracentesis on 03/09/2021 with removal of 1.1 liter of pleural fluid and pleural fluid analysis showed exudative fluid, cultures and cytology are pending. #2. Possible urinothorax was being considered, and pleural fluid was sent for creatinine, and specific gravity, however we don't have those results. This was being considered on the basis of CT abdomen showing left hydronephrosis and distal left ureteral obstruction #3. History of recent left supraclavicular lymph node excision on 03/06/2021, biopsy results are pending #4. Abnormal MRI of the abdomen did have a suspicious for metastatic disease involving the liver, adrenals and significant retroperitoneal adenopathy #5. Small ascites #6. Left breast mass, with consideration for malignancy, general surgery to see him on consultation #7. Left hydronephrosis with ureteral obstruction #8. Nicotine dependence syndrome #9. Possible pancreatic or hepatobiliary malignancy especially in view of elevated CA 199 #10. Hyponatremia with possible ascites, and possibly related to SIADH Plan: Still awaiting results of the supraclavicular node biopsy and pleural fluid cytology No worsening dyspnea Appears to be more comfortable on today's exam Results of the CT of the abdomen and pelvis were noted We will place the patient on fluid restriction with 1200 mL of free water daily basis Repeat labs tomorrow Stop IV fluids I performed a history & physical examination of the patient and discussed their management with my nurse practitioner, Maria R Martínez. I reviewed the nurse practitioner's note and agree with the documented findings and plan of care. Lung sounds are positive for diminished breath sounds. The findings and the impression was discussed with the patient. I attest to the documentation by the nurse practitioner. Time with Patient: Less than 30
--- NOTE | 2021-03-11 14:04 | P.PN ---
Subjective Progress Note Date: 03/11/21 Principal diagnosis: Systemic adenopathy Spoke with pathology and Dr. 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 Will plan to send for further molecular testing although overall goal of any treatment would be palliaitve. Objective - Vital Signs Vital signs: Vital Signs Temp 98.1 F 03/11/21 11:16 Pulse 105 H 03/11/21 11:16 Resp 16 03/11/21 11:16 BP 111/73 03/11/21 11:16 Pulse Ox 99 03/11/21 11:16 Intake & Output 03/10/21 03/11/21 03/11/21 18:59 06:59 18:59 Intake Total 900 1380 Balance 900 1380 Intake: Intake, IV Titration 900 900 Amount Sodium Chloride 0.9% 1, 900 900 000 ml @ 75 mls/hr IV . [id number] [facility] Rx#:[id number] Oral 480 Other: Voiding Method Toilet Toilet # Voids 6 2 # Bowel Movements 3 - Exam - Constitutional General appearance: cooperative, no acute distress - EENT Eyes: EOMI ENT: NA/AT - Neck Neck: lymphadenopathy - Respiratory Respiratory: bilateral: diminished, wheezing - Cardiovascular Rhythm: irregularly irregular leg Peripheral Edema: bilateral: 2+ - Gastrointestinal General gastrointestinal: distended, hepatomegaly, soft, tenderness - Integumentary Integumentary: pale - Neurologic Neurologic: CNII-XII intact - Musculoskeletal Musculoskeletal: generalized weakness - Psychiatric Psychiatric: A&O x's 3 - Labs CBC & Chem 7: 03/11/21 05:32 03/11/21 14:12 Labs: Abnormal Lab Results - Last 24 Hours (Table) 03/11/21 Range/Units 05:32 WBC 13.6 H (3.8-10.6) k/uL RBC 3.70 L (3.80-5.40) m/uL Hgb 11.0 L (11.4-16.0) gm/dL Neutrophils # 10.8 H (1.3-7.7) k/uL Monocytes # 1.2 H (0-1.0) k/uL Microbiology - Last 24 Hours (Table) 03/09/21 21:05 Urine Culture - Final Urine,Clean Catch 03/09/21 20:08 Blood Culture - Preliminary Blood No Growth after 24 hours 03/09/21 15:25 Gram Stain - Preliminary Pleural Fluid Body Fluid Culture - Preliminary 03/09/21 15:25 Acid Fast Bacilli Smear - Final Pleural Fluid Acid Fast Bacilli Culture - Preliminary Assessment and Plan (1) Adenopathy Current Visit: Yes Status: Acute Code(s): R59.9 - ENLARGED LYMPH NODES, UNSPECIFIED SNOMED Code(s): 65433097 (2) Abdominal lymphadenopathy Current Visit: No Status: Acute Code(s): R59.0 - LOCALIZED ENLARGED LYMPH NODES SNOMED Code(s): 943631876 (3) Metastasis of unknown primary Current Visit: Yes Status: Acute Code(s): C79.9 - SECONDARY MALIGNANT NEOPLASM OF UNSPECIFIED SITE SNOMED Code(s): 577798071 Plan: Assessment and Recommendations: Massive systemic adenopathy: - Await excisional node biopsy results from 03/06 - CT abdomen and Pelvis progression noted with multiple heaptic lesions in line with metastatic disease - LDH and Uric Acid - Echocardiogram Reviewed - Pulmonary following for effusions - 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 Will await molecular testing but in interim will further stage with MRI of brain and discuss goals of care as palliative intent MRI Brain CMP - Awaiting results We discussed results of pathology in detail and the overall prognosis and goals of treatment. palliative intent.
[2021-03-11 14:14] LABS: African American GFR (CKD) 92.2 (60.0-200.0); Albumin/Globulin Ratio 1.3 (1.60-3.17); Anion Gap 7.6 mmol/L (4.00-12.00); Calcium 8.4 mg/dL (8.7-10.3); Carbon Dioxide 21.4 mmol/L (21.6-31.8); Globulin 2.3 g/dL (1.6-3.3); Non-African American GFR(CKD) 79.6 (60.0-200.0); Total Bilirubin 0.4 mg/dL (0.2-1.2); Total Protein 5.3 g/dL (6.2-8.2)
--- NOTE | 2021-03-11 14:34 | P.PN ---
Subjective Progress Note Date: 03/11/21 CHIEF COMPLAINT: Generalized pain and shortness of breath HISTORY OF PRESENT ILLNESS: Surgical service is following her chest to patient's left breast mass. Patient is undergoing oncology workup for metastatic disease. Oncology has ordered MRI of the brain. Her supraclavicular lymph node and EGD biopsies are pending. Patient is complaining of pain and increased swelling on her sides. She denies any nausea or vomiting. Reports a decreased appetite. Denies abdominal pain. Denies any nausea or vomiting. Patient denies any pain in the left breast. Denies any discharge from left breast. Afebrile. WBC 13.6 hemoglobin 07/22/1973 sodium 129 potassium 5.0 creatinine 0.8 pleural fluid culture pending. Computed tomography scan of the abdomen and pelvis findings compatible with significant disease progression with suspected metastatic disease to the lungs marked interval increase in hepatic metastatic lesions as well as encasing retroperitoneal and gastrohepatic ligament adenopathy. Adeno edith extends into the pelvis. Suspect obstruction of left ureter related to adenopathy. Left perinephritic stranding and edema noted with decrease excretion of contrast. Bilateral adrenal masses. PHYSICAL EXAM: VITAL SIGNS: Reviewed GENERAL: Well-developed in no acute distress. HEENT: No sclera icterus. Extraocular movements grossly intact. Moist buccal mucosa. Head is atraumatic, normocephalic. Hears conversational speech. No nasal drainage. NECK: Supple without lymphadenopathy. CHEST: Non-labored respirations and equal bilateral excursions. CARDIOVASCULAR: Palpable 2+ radial pulses. ABDOMEN: Soft. Nondistended. Nontender. MUSCULOSKELETAL: No clubbing or cyanosis. NEUROLOGIC: No focal or lateralizing signs. Cranial nerves II through XII grossly intact. PSYCH: Appropriate affect. Alert and oriented to person, place and time. SKIN: Well perfused. Good skin turgor. ASSESSMENT: 1. Left breast mass measuring 1.[address] scan of the chest 2. Recent EGD with biopsy and excision of left supraclavicular lymph node on 03/06/2021. Biopsy results pending 3. Large left pleural effusion most likely malignant status post left thoracentesis with 1.1 L removed 4. Massive retroperitoneal lymphadenopathy. Multiple liver lesions consistent with metastatic disease noted on MRI of the abdomen on 02/25/2021 5. Hyponatremia PLAN: -No surgical intervention planned -Await lymph node biopsy result to assess if patient has metastatic breast cancer -Metastatic workup in progress per oncology -Follow up on biopsy results from EGD and supraclavicular lymph node -Continue supportive care Physician Patient Account Analyst note has been reviewed by physician. Signing provider agrees with the documented findings, assessment, and plan of care. Objective - Vital Signs Vital signs: Vital Signs Temp 98.1 F 03/11/21 11:16 Pulse 105 H 03/11/21 11:16 Resp 16 03/11/21 11:16 BP 111/73 03/11/21 11:16 Pulse Ox 99 03/11/21 11:16 Intake & Output 03/10/21 03/11/21 03/11/21 18:59 06:59 18:59 Intake Total 900 1380 Balance 900 1380 Intake: Intake, IV Titration 900 900 Amount Sodium Chloride 0.9% 1, 900 900 000 ml @ 75 mls/hr IV . [id number] [facility] Rx#:[id number] Oral 480 Other: Voiding Method Toilet Toilet # Voids 6 2 # Bowel Movements 3 - Labs CBC & Chem 7: 03/11/21 05:32 03/11/21 05:32 Labs: Abnormal Lab Results - Last 24 Hours (Table) 03/11/21 03/11/21 Range/Units 05:32 05:32 WBC 13.6 H (3.8-10.6) k/uL RBC 3.70 L (3.80-5.40) m/uL Hgb 11.0 L (11.4-16.0) gm/dL Neutrophils # 10.8 H (1.3-7.7) k/uL Monocytes # 1.2 H (0-1.0) k/uL Sodium 129 L (135-145) mmol/L Carbon Dioxide 21.4 L (21.6-31.8) mmol/L Calcium 8.4 L (8.7-10.3) mg/dL AST 71 H (13-35) U/L Alkaline Phosphatase 310 H (41-126) U/L Total Protein 5.3 L (6.2-8.2) g/dL Albumin 3.00 L (3.80-4.90) g/dL Albumin/Globulin Ratio 1.30 L (1.60-3.17) g/dL Microbiology - Last 24 Hours (Table) 03/09/21 21:05 Urine Culture - Final Urine,Clean Catch 03/09/21 20:08 Blood Culture - Preliminary Blood No Growth after 24 hours 03/09/21 15:25 Gram Stain - Preliminary Pleural Fluid Body Fluid Culture - Preliminary 03/09/21 15:25 Acid Fast Bacilli Smear - Final Pleural Fluid Acid Fast Bacilli Culture - Preliminary
[2021-03-11 15:00] LABS: ALT 18 U/L (4-34); AST 90 U/L (14-36); African American GFR (CKD) >90 (>60 ml/min/1.73 sqM); Albumin 2.6 g/dL (3.5-5.0); Alkaline Phosphatase 258 U/L (38-126); Anion Gap 6 mmol/L; Blood Urea Nitrogen 12 mg/dL (7-17); Calcium 8.8 mg/dL (8.4-10.2); Carbon Dioxide 23 mmol/L (22-30); Chloride 98 mmol/L (98-107); Globulin 2.7 g/dL; Glucose 108 mg/dL (74-99); Magnesium 1.8 mg/dL (1.6-2.3); Non-African American GFR(CKD) 82 (>60 ml/min/1.73 sqM); Potassium 4.7 mmol/L (3.5-5.1); Sodium 127 mmol/L (137-145); Total Bilirubin 0.3 mg/dL (0.2-1.3); Total Protein 5.3 g/dL (6.3-8.2)
--- NOTE | 2021-03-11 16:24 | P.PN ---
Subjective Progress Note Date: 03/11/21 The patient was seen for left hydronephrosis. 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 Pending further recommendations from oncology as to what they're going to do as to whether a stent would be beneficial. Objective - Vital Signs Vital signs: Vital Signs Temp 98.1 F 03/11/21 11:16 Pulse 105 H 03/11/21 11:16 Resp 16 03/11/21 11:16 BP 111/73 03/11/21 11:16 Pulse Ox 99 03/11/21 11:16 Intake & Output 03/10/21 03/11/21 03/11/21 18:59 06:59 18:59 Intake Total 900 1380 Balance 900 1380 Intake: Intake, IV Titration 900 900 Amount Sodium Chloride 0.9% 1, 900 900 000 ml @ 75 mls/hr IV . [id number] [facility] Rx#:[id number] Oral 480 Other: Voiding Method Toilet Toilet # Voids 6 2 # Bowel Movements 3 - Labs CBC & Chem 7: 03/11/21 05:32 03/11/21 14:12 Labs: Abnormal Lab Results - Last 24 Hours (Table) 03/11/21 03/11/21 03/11/21 Range/Units 05:32 05:32 14:12 WBC 13.6 H (3.8-10.6) k/uL RBC 3.70 L (3.80-5.40) m/uL Hgb 11.0 L (11.4-16.0) gm/dL Neutrophils # 10.8 H (1.3-7.7) k/uL Monocytes # 1.2 H (0-1.0) k/uL Sodium 129 L 127 L (135-145) mmol/L Carbon Dioxide 21.4 L (21.6-31.8) mmol/L Glucose 108 H (74-99) mg/dL Calcium 8.4 L (8.7-10.3) mg/dL AST 71 H 90 H (13-35) U/L Alkaline Phosphatase 310 H 258 H (41-126) U/L Total Protein 5.3 L 5.3 L (6.2-8.2) g/dL Albumin 3.00 L 2.6 L (3.80-4.90) g/dL Albumin/Globulin Ratio 1.30 L (1.60-3.17) g/dL Microbiology - Last 24 Hours (Table) 03/09/21 21:05 Urine Culture - Final Urine,Clean Catch 03/09/21 20:08 Blood Culture - Preliminary Blood No Growth after 24 hours 03/09/21 15:25 Gram Stain - Preliminary Pleural Fluid Body Fluid Culture - Preliminary 03/09/21 15:25 Acid Fast Bacilli Smear - Final Pleural Fluid Acid Fast Bacilli Culture - Preliminary
--- NOTE | 2021-03-11 20:12 | P.PN ---
Subjective Progress Note Date: 03/11/21 Principal diagnosis: Systemic adenopathy Pleural effusions COPD March 10, 2021 60-year-old female was admitted to the hospital for diffuse abdominal pain with associated shortness of breath, tachycardia and generalized weakness.Patient had extensive diagnostic workup in emergency department with the CTA of the chest with no apparent pulmonary embolism's with pleural ef fusions. Consulted pulmonary critical care for thoracentesis output of thoracentesis approximation 1 L. Patient recently diagnosed with metastatic cancer of unknown origin, Being followed by oncology.Patient has significant medical history of possible stomach cancer, degenerative disc disease, and n icotine abuse. Multiple consult on board for severity of illness. Upon evaluation this a.m., patient resting comfortably in bed, and no apparent acute signs of distress. Patient continues to endorse diffuse abdominal pain and mild shortness of breath. Patient denies fever, chills chest pain, palpitations, or diarrhea at this time. Awaiting on labs and diagnostic testing results. March 11, 2021 evaluated patient this a.m. upon hospital rounding, patient continues to endorse generalized pain with concentration in the thoracic and abdomen area. Patient appears to be in mild distress due to pain and discomfort possibly related to metastatic cancer. Patient denies fever, chills, chest pain, palpitations or diarrhea at this time. Awaiting 9 AM labs, and recommendations from consultants. Objective - Vital Signs Vital signs: Vital Signs Temp 98.6 F 03/11/21 19:54 Pulse 102 H 03/11/21 19:54 Resp 16 03/11/21 19:54 BP 111/74 03/11/21 19:54 Pulse Ox 92 L 03/11/21 19:54 Intake & Output 03/11/21 03/11/21 03/12/21 06:59 18:59 06:59 Intake Total 1380 600 Balance 1380 600 Intake: Intake, IV Titration 900 600 Amount Sodium Chloride 0.9% 1, 900 600 000 ml @ 75 mls/hr IV . [id number] [facility] Rx#:[id number] Oral 480 Other: Voiding Method Toilet # Voids 2 4 # Bowel Movements 1 - Constitutional General appearance: Present: mild distress - EENT Eyes: Present: EOMI, PERRLA ENT: Present: hard of hearing Ears: bilateral: normal - Neck Carotids: bilateral: upstroke normal Thyroid: bilateral: normal size - Respiratory Respiratory: bilateral: diminished - Cardiovascular Heart rate: 74 Rhythm: regular Heart sounds: normal: S1, S2 - Peripheral pulses radial pulse Peripheral Pulses: bilateral: Normal - Gastrointestinal General gastrointestinal: Present: decreased bowel sounds Localized gastrointestinal: tender: diffuse - Integumentary Integumentary: Present: decreased turgor, pale - Neurologic Neurologic: Present: CNII-XII intact - Musculoskeletal Musculoskeletal: Present: generalized weakness - Psychiatric Psychiatric: Present: A&O x's 3 - Allied health notes Allied health notes reviewed: nursing - Labs CBC & Chem 7: 03/11/21 05:32 03/11/21 14:12 Labs: Abnormal Lab Results - Last 24 Hours (Table) 03/11/21 03/11/21 03/11/21 Range/Units 05:32 05:32 14:12 WBC 13.6 H (3.8-10.6) k/uL RBC 3.70 L (3.80-5.40) m/uL Hgb 11.0 L (11.4-16.0) gm/dL Neutrophils # 10.8 H (1.3-7.7) k/uL Monocytes # 1.2 H (0-1.0) k/uL Sodium 129 L 127 L (135-145) mmol/L Carbon Dioxide 21.4 L (21.6-31.8) mmol/L Glucose 108 H (74-99) mg/dL Calcium 8.4 L (8.7-10.3) mg/dL AST 71 H 90 H (13-35) U/L Alkaline Phosphatase 310 H 258 H (41-126) U/L Total Protein 5.3 L 5.3 L (6.2-8.2) g/dL Albumin 3.00 L 2.6 L (3.80-4.90) g/dL Albumin/Globulin Ratio 1.30 L (1.60-3.17) g/dL Microbiology - Last 24 Hours (Table) 03/09/21 15:25 Gram Stain - Preliminary Pleural Fluid Body Fluid Culture - Preliminary 03/09/21 21:05 Urine Culture - Final Urine,Clean Catch 03/09/21 20:08 Blood Culture - Preliminary Blood No Growth after 24 hours 03/09/21 15:25 Acid Fast Bacilli Smear - Final Pleural Fluid Acid Fast Bacilli Culture - Preliminary Assessment and Plan Assessment: Possible metastatic malignancy abdominal pain shortness of breath Left pleural effusion status post thoracentesis, awaiting on pathology awaiting for malignancy, Awaiting on pathology report Left breast mass with axillary Lymphadenopathy with possible malignancy,awaiting and pathology report Intractable pain, Continue analgesics as needed Hydronephrosis, Continue consultation with urology degenerative joint disc disease nicotine dependence Full code Plan: Systemic adenopathy, continue consultation and recommendations from hematology and oncology pleural effusions, continue to monitor closely with pulmonary critical care for recommendations and treatment plan awaiting pathology reports continue to monitor vital signs and diagnostic testing continue to medically manage patient further recommendations to come based on patient's clinical condition Time with Patient: Greater than 30
[2021-03-11] MEDS: ENOXAPARIN 40 MG/0.4 ML SYRINGE SQ SCH (22:09)
[2021-03-11] MEDS: NICOTINE 21MG/24HR PATCH TRANSDERM SCH (22:09)
[2021-03-12] MEDS: HYDROcodone/APAP 5-325MG 1 EACH TAB PO PRN ×3 (00:09→16:08)
[2021-03-12] MEDS: HYDROmorphone 0.5 MG/0.5 ML SYRINGE IVP PRN (03:01)
[2021-03-12 06:26] LABS: Basophils # (A) 0.1 k/uL (0-0.2); Basophils % (A) 1 %; Eosinophils # (A) 0.2 k/uL (0-0.7); Eosinophils % (A) 1 %; HCT 31.5 % (34.0-46.0); HGB 10.8 gm/dL (11.4-16.0); Lymphocytes # (A) 1.3 k/uL (1.0-4.8); Lymphocytes % (A) 9 %; MCH 30.9 pg (25.0-35.0); MCHC 34.2 g/dL (31.0-37.0); MCV 90.4 fL (80.0-100.0); Mean Platelet Volume 7.3; Monocytes # (A) 1.4 k/uL (0-1.0); Monocytes % (A) 10 %; Neutrophils % (A) 78 %; Platelet Count 390 k/uL (150-450); RBC 3.49 m/uL (3.80-5.40); RDW 12.5 % (11.5-15.5); WBC 14.2 k/uL (3.8-10.6)
[2021-03-12] MEDS: PANTOPRAZOLE 40 MG TABLET PO SCH (07:36)
[2021-03-12] MEDS: NICOTINE 21MG/24HR PATCH TRANSDERM SCH (07:36)
[2021-03-12] MEDS: HYOSCYAMINE SULFATE 0.125 MG TAB PO SCH ×3 (07:36→21:12)
[2021-03-12] MEDS: SUCRALFATE 1 GM TAB PO SCH ×4 (07:36→21:12)
[2021-03-12] MEDS: LACTULOSE 20 GM/30 ML CUP PO SCH ×4 (07:36→21:12)
[2021-03-12] MEDS: HYDROmorphone 1 MG/ML 1 ML SYRINGE IVP PRN ×2 (11:16→18:23)
--- NOTE | 2021-03-12 12:22 | P.PN ---
Subjective Progress Note Date: 03/12/21 The patient is in the hospital with general malaise and pain. 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 The primary is indeterminate. She has some left-sided hydronephrosis. Depending on oncologic recommendations as to whether this needs to be addressed. Objective - Vital Signs Vital signs: Vital Signs Temp 98.1 F 03/12/21 12:00 Pulse 62 03/12/21 12:00 Resp 16 03/12/21 12:00 BP 104/71 03/12/21 12:00 Pulse Ox 91 L 03/12/21 12:00 Intake & Output 03/11/21 03/12/21 03/12/21 18:59 06:59 18:59 Intake Total 600 120 Balance 600 120 Intake: Intake, IV Titration 600 120 Amount Sodium Chloride 0.9% 1, 600 120 000 ml @ 75 mls/hr IV . [id number] [facility] Rx#:[id number] Other: Voiding Method Toilet # Voids 4 # Bowel Movements 1 - Labs CBC & Chem 7: 03/12/21 05:56 03/11/21 14:12 Labs: Abnormal Lab Results - Last 24 Hours (Table) 03/11/21 03/11/21 03/12/21 Range/Units 05:32 14:12 05:56 WBC 14.2 H (3.8-10.6) k/uL RBC 3.49 L (3.80-5.40) m/uL Hgb 10.8 L (11.4-16.0) gm/dL Hct 31.5 L (34.0-46.0) % Neutrophils # 11.0 H (1.3-7.7) k/uL Monocytes # 1.4 H (0-1.0) k/uL Sodium 129 L 127 L (135-145) mmol/L Carbon Dioxide 21.4 L (21.6-31.8) mmol/L Glucose 108 H (74-99) mg/dL Calcium 8.4 L (8.7-10.3) mg/dL AST 71 H 90 H (13-35) U/L Alkaline Phosphatase 310 H 258 H (41-126) U/L Total Protein 5.3 L 5.3 L (6.2-8.2) g/dL Albumin 3.00 L 2.6 L (3.80-4.90) g/dL Albumin/Globulin Ratio 1.30 L (1.60-3.17) g/dL Microbiology - Last 24 Hours (Table) 03/09/21 20:08 Blood Culture - Preliminary Blood No Growth after 48 hours 03/09/21 15:25 Gram Stain - Preliminary Pleural Fluid Body Fluid Culture - Preliminary 03/09/21 21:05 Urine Culture - Final Urine,Clean Catch
--- NOTE | 2021-03-12 12:28 | P.PN ---
Subjective Progress Note Date: 03/12/21 Principal diagnosis: Generalized weakness, abdominal discomfort, bloating, pleural effusion This is a 60-year-old female who has not been feeling well since December of 2020. Patient has been complaining of vague abdominal discomfort and some bloating of her stomach for the last 2 months. A KUB was done on 01/02/2021, and it showed subsegmental atelectasis posterior right lung base. There was no evidence of acute abdomen at the time. And no evidence of mass. CT of the abdomen and pelvis was done on 01/03/2021, this was done in the ER, and there was evidence of extensive retroperitoneal and gastrohepatic lymphadenopathy. The radiologist at that time recommended MRI of the abdomen. MRI of the abdomen was not done on 14/06/2021, however prior to that on 02/2021, patient was seen in the ER again, and her complaint was mostly urinary retention. No major workup was done at the time. Her MRI on 02/25/21, showed massive retroperitoneal lymphadenopathy significantly increased compared to previous CT of the abdomen and pelvis. There was evidence of anterior displacement of the pancreas due to adenopathy. There was also multiple liver lesions significantly increased compared to previous CT of the abdomen and pelvis consistent with metastatic disease. There was also evidence of left sided hydronephrosis and proximal hydroureter. There was also evidence of abdominal ascites. The radiologist also raise the possibility of distal ureteral obstruction. Patient was referred to Dr. Luther on outpatient basis, and he recommended a referral to Dr. David schilling. Patient underwent EGD she also underwent excision of left supraclavicular lymph node. There was no evidence of inflammatory or polypoid lesions throughout the stomach or duodenum. The pathology on the left supraclavicular lymph node is pending. Patient was seen by her primary care physician today with multiple constitutional complaints, and he recommended that the patient goes to the ER again. CT of the chest was done, and it showed no evidence of pulmonary embolism. It did show evidence of 1.9 cm left breast mass and left sided axillary lymphadenopathy it also showed bilateral pulmonary nodules and left supraclavicular as well as left thoracic inlet lymphadenopathy significant upper abdominal lymphadenopathy and hepatic as well as adrenal metastatic lesions were noted. In addition to this there was a moderate to large left pleural effusion and collapse of the inferior lingula. With a small right-sided pleural effusion. Considering the findings, I was asked to see this patient on consu ltation I did evaluate the patient in the ER, went ahead and performed left- sided thoracentesis which is mostly diagnostic and therapeutic at the same time. Fluid was sent for different diagnostic studies including cytology and creatinine level was ordered to make sure that the fluid is not urinothorax . I was able to drain 1100 mL of fluid and again this was sent for different diagnostic studies. I did get the report on the biopsies that were done by Dr. schilling, and these are all pending. On 03/10/2021 patient seen in follow-up on oncology floor. She is sitting up in her bed, she is on room air, her pulse ox is 92%, she states she feels like her breathing is short, and she is taking shallow breaths, however she is not tachypneic, yesterday she underwent left-sided thoracentesis by Dr. Cross and 1100 mL of slightly yellow pleural fluid was removed, pleural fluid analysis showed an exudative fluid with a total protein of 3.3 g, fluid 8 LDH is 539, fluid amylase was 38, polynuclear WBCs were 30, and mononuclear WBCs were 70, fluid glucose was 86. Pleural fluid cultures are pending, cytology is pending. Patient still complains of pain across the abdomen, she is requesting her pain meds to be increased, she is currently on [place] 5325 milligrams every 4 hours, and Dilaudid 0.5 mg every 3 hours for breakthrough pain. On 03/11/2021 patient seen in follow-up on oncology floor. Left supraclavicular lymph node biopsy results are still pending, pleural fluid cytology results are also pending. Patient is awake and alert, in no acute distress, seems to be much more comfortable on today's exam, and does not appear to be in no acute distress, she is breathing comfortably, room air pulse ox is 99%, and she is afebrile, no complaints of chest discomfort, no abdominal discomfort. She is afebrile, does get short of breath with exertion. No cough no wheezing, no hemoptysis, CT of the abdomen and pelvis was completed showing suspected metastatic disease to the lungs, marked interval increase in hepatic metastatic lesions as well as encasing retroperitoneal and gastrohepatic ligament adenopathy, adenopathy extends into the pelvis. There was a suspected obstruction of the left ureter related to the retroperitoneal adenopathy, there is left perinephric stranding and edema and bilateral adrenal masses were also noted. Patient remains on 0.9 normal saline infusing at a rate of 75 ML per hour, today's labs showed white blood cell count of 13.6, hemoglobin of 11, serum sodium yesterday was down to 127, LDH was 3316. Pleural fluid cultures have been negative, blood and urine cultures have been negative On 03/12/2021 patient seen in follow-up on medical oncology unit. She is sitting up on the edge of the bed, appears to be quite comfortable, in no acute distress, she is on room air, pulse ox is 88-91%, breathing is nonlabored, she is afebrile, hemodynamically patient is stable. Denies any pain, and her pain medications have been readjusted with addition of fentanyl patch 25 mics per hour patch every 72 hours, and her breakthrough Dilaudid is at 1 mg every 4 hours in addition to oral [place]'s. Patient appears to be slightly inappropriate, slurring words, but no acute distress, breathing comfortably. Left supraclavicular biopsy node biopsy came back positive for metastatic poorly differentiated non-small cell carcinoma, and the immunostaining results were not entirely specific with the pattern most favoring urothelial primary, with additional possibilities which were considered to be less likely including lung, breast or GI tract. Pleural fluid cytology is still pending, cultures are pending, blood and urine cultures show no growth Objective - Vital Signs Vital signs: Vital Signs Temp 98.1 F 03/12/21 12:00 Pulse 62 03/12/21 12:00 Resp 16 03/12/21 12:00 BP 104/71 03/12/21 12:00 Pulse Ox 91 L 03/12/21 12:00 Intake & Output 03/11/21 03/12/21 03/12/21 18:59 06:59 18:59 Intake Total 600 120 Balance 600 120 Intake: Intake, IV Titration 600 120 Amount Sodium Chloride 0.9% 1, 600 120 000 ml @ 75 mls/hr IV . [id number] [facility] Rx#:[id number] Other: Voiding Method Toilet # Voids 4 # Bowel Movements 1 - Exam GENERAL EXAM: Alert, 60-year-old white female, on room air with a pulse ox of 99%, comfortable in no apparent distress. HEAD: Normocephalic/atraumatic. EYES: Normal reaction of pupils, equal size. Conjunctiva pink, sclera white. NOSE: Clear with pink turbinates. THROAT: No erythema or exudates. NECK: No masses, no JVD, no thyroid enlargement, no adenopathy. CHEST: No chest wall deformity. Symmetrical expansion. LUNGS: Equal air entry with diminished breath sounds at bilateral bases CVS: Regular rate and rhythm, normal S1 and S2, no gallops, no murmurs, no rubs ABDOMEN: Soft, nontender. No hepatosplenomegaly, normal bowel sounds, no guarding or rigidity. EXTREMITIES: No clubbing, no edema, no cyanosis, 2+ pulses and upper and lower extremities. MUSCULOSKELETAL: Muscle strength and tone normal. SPINE: No scoliosis or deformity SKIN: No rashes CENTRAL NERVOUS SYSTEM: Alert and oriented -3. No focal deficits, tone is normal in all 4 extremities. PSYCHIATRIC: Alert and oriented -3. Appropriate affect. Intact judgment and insight. - Labs CBC & Chem 7: 03/12/21 05:56 03/11/21 14:12 Labs: Abnormal Lab Results - Last 24 Hours (Table) 03/11/21 03/11/21 03/12/21 Range/Units 05:32 14:12 05:56 WBC 14.2 H (3.8-10.6) k/uL RBC 3.49 L (3.80-5.40) m/uL Hgb 10.8 L (11.4-16.0) gm/dL Hct 31.5 L (34.0-46.0) % Neutrophils # 11.0 H (1.3-7.7) k/uL Monocytes # 1.4 H (0-1.0) k/uL Sodium 129 L 127 L (135-145) mmol/L Carbon Dioxide 21.4 L (21.6-31.8) mmol/L Glucose 108 H (74-99) mg/dL Calcium 8.4 L (8.7-10.3) mg/dL AST 71 H 90 H (13-35) U/L Alkaline Phosphatase 310 H 258 H (41-126) U/L Total Protein 5.3 L 5.3 L (6.2-8.2) g/dL Albumin 3.00 L 2.6 L (3.80-4.90) g/dL Albumin/Globulin Ratio 1.30 L (1.60-3.17) g/dL Microbiology - Last 24 Hours (Table) 03/09/21 20:08 Blood Culture - Preliminary Blood No Growth after 48 hours 03/09/21 15:25 Gram Stain - Preliminary Pleural Fluid Body Fluid Culture - Preliminary 03/09/21 21:05 Urine Culture - Final Urine,Clean Catch Assessment and Plan Plan: Assessment: #1. Metastatic malignancy, with possibly a metastatic non-small cell carcinoma with urothelial primary, and less likely related to lung, breast or GI tract. #2. Large left-sided pleural effusion, most likely malignant. Status post left thoracentesis on 03/09/2021 with removal of 1.1 liter of pleural fluid and pleural fluid analysis showed exudative fluid, cultures and cytology are pending. #3. Possible urinothorax was being considered, and pleural fluid was sent for creatinine, and specific gravity, however we don't have those results. This was being considered on the basis of CT abdomen showing left hydronephrosis and distal left ureteral obstruction #4. History of recent left supraclavicular lymph node excision on 03/06/2021, biopsy results positive for metastatic poorly differentiated non-small cell carcinoma with possibility of urothelial primary #5. Abnormal MRI of the abdomen did have a suspicious for metastatic disease i nvolving the liver, adrenals and significant retroperitoneal adenopathy #6. Small ascites #7. Left breast mass, with consideration for malignancy, general surgery to see him on consultation #8. Left hydronephrosis with ureteral obstruction #9. Nicotine dependence syndrome #10. Possible pancreatic or hepatobiliary malignancy especially in view of elevated CA 199 #11. Hyponatremia with possible ascites, and possibly related to SIADH Plan: Supraclavicular biopsy results were noted Awaiting results of the pleural fluid cytology Pleural fluid is suspected to be malignant Pleural fluid will likely continue to build up and patient may need placement of Pleurx catheter Consult CT surgery for Pleurx catheter placement, which does need to be placed right away at least not until we have the final results of the pleural fluid cytology We'll continue to follow I performed a history & physical examination of the patient and discussed their management with my nurse practitioner, Maria R Martínez. I reviewed the nurse practitioner's note and agree with the documented findings and plan of care. Lung sounds are positive for diminished breath sounds. The findings and the impression was discussed with the patient. I attest to the documentation by the nurse practitioner. Time with Patient: Less than 30
[2021-03-12 12:48] LABS: African American GFR (CKD) 92.2 (60.0-200.0); Anion Gap 5.8 mmol/L (4.00-12.00); BUN/Creat Ratio 16.25 Ratio (12.00-20.00); Calcium 8.4 mg/dL (8.7-10.3); Carbon Dioxide 22.2 mmol/L (21.6-31.8); Non-African American GFR(CKD) 79.6 (60.0-200.0); Potassium 4.9 mmol/L (3.5-5.5)
--- NOTE | 2021-03-12 12:59 | P.PN ---
Subjective Principal diagnosis: Systemic adenopathy Pleural effusions COPD March 10, 2021 60-year-old female was admitted to the hospital for diffuse abdominal pain with associated shortness of breath, tachycardia and generalized weakne ss.Patient had extensive diagnostic workup in emergency department with the CTA of the chest with no apparent pulmonary embolism's with pleural effusions. Consulted pulmonary critical care for thoracentesis output of thoracentesis approximation 1 L. Patient recently diagnosed with metastatic cancer of unknown origin, Being followed by oncology.Patient has significant medical history of possible stomach cancer, degenerative disc disease, and nicotine abuse. Multiple consult on board for severity of illness. Upon evaluation this a.m., patient resting comfortably in bed, and no apparent acute signs of distress. Patient continues to endorse diffuse abdominal pain and mild shortness of breath. Avinash zhu denies fever, chills chest pain, palpitations, or diarrhea at this time. Awaiting on labs and diagnostic testing results. March 11, 2021 evaluated patient this a.m. upon hospital rounding, patient continues to endorse generalized pain with concentration in the thoracic and abdomen area. Patient appears to be in mild distress due to pain and discomfort possibly related to metastatic cancer. Patient denies fever, chills, chest pain, palpitations or diarrhea at this time. Awaiting AM labs, and recommendations from consultants. March 12, 2021 evaluated patient this a.m. upon hospital rounds, patient continues to endorse generalized pain with concentration in the abdominal cavity. Patient continues to appear to be in mild distress due to pain and discomfort located in the abdominal cavity, possibly related to metastatic cancer. Patient denies fever, chills, chest pain, palpitations or diarrhea at this time.Patient had lengthy conversation with hematology/oncology yesterday regarding awaiting pathology and cytology reports for diagnosis of origination of cancer and treatment plan. Objective - Vital Signs Vital signs: Vital Signs Temp 98.1 F 03/12/21 12:00 Pulse 62 03/12/21 12:00 Resp 16 03/12/21 12:00 BP 104/71 03/12/21 12:00 Pulse Ox 91 L 03/12/21 12:00 Intake & Output 03/11/21 03/12/21 03/12/21 18:59 06:59 18:59 Intake Total 600 120 Balance 600 120 Intake: Intake, IV Titration 600 120 Amount Sodium Chloride 0.9% 1, 600 120 000 ml @ 75 mls/hr IV . [id number] [facility] Rx#:[id number] Other: Voiding Method Toilet # Voids 4 # Bowel Movements 1 - Constitutional General appearance: Present: mild distress - EENT Eyes: Present: EOMI, PERRLA, poor dentition Ears: bilateral: normal - Neck Carotids: bilateral: upstroke normal Thyroid: bilateral: normal size - Respiratory Respiratory: bilateral: diminished (Anterior and posterior lung edmonds) - Cardiovascular Details: Normal sinus rhythm Heart rate: 74 Rhythm: regular Heart sounds: normal: S1, S2 - Peripheral edema ankle Peripheral Edema: bilateral: 1+ - Peripheral pulses radial pulse Peripheral Pulses: bilateral: Normal dorsalis pedis Peripheral Pulses: bilateral: Normal - Gastrointestinal General gastrointestinal: Present: decreased bowel sounds, tenderness Localized gastrointestinal: tender: diffuse, guarding: diffuse - Integumentary Integumentary: Present: pale - Neurologic Neurologic: Present: CNII-XII intact - Musculoskeletal Musculoskeletal: Present: generalized weakness - Psychiatric Psychiatric: Present: A&O x's 3 - Allied health notes Allied health notes reviewed: nursing - Labs CBC & Chem 7: 03/12/21 05:56 03/11/21 14:12 Labs: Abnormal Lab Results - Last 24 Hours (Table) 03/11/21 03/11/21 03/12/21 Range/Units 05:32 14:12 05:56 WBC 14.2 H (3.8-10.6) k/uL RBC 3.49 L (3.80-5.40) m/uL Hgb 10.8 L (11.4-16.0) gm/dL Hct 31.5 L (34.0-46.0) % Neutrophils # 11.0 H (1.3-7.7) k/uL Monocytes # 1.4 H (0-1.0) k/uL Sodium 129 L 127 L (135-145) mmol/L Carbon Dioxide 21.4 L (21.6-31.8) mmol/L Glucose 108 H (74-99) mg/dL Calcium 8.4 L (8.7-10.3) mg/dL AST 71 H 90 H (13-35) U/L Alkaline Phosphatase 310 H 258 H (41-126) U/L Total Protein 5.3 L 5.3 L (6.2-8.2) g/dL Albumin 3.00 L 2.6 L (3.80-4.90) g/dL Albumin/Globulin Ratio 1.30 L (1.60-3.17) g/dL Microbiology - Last 24 Hours (Table) 03/09/21 20:08 Blood Culture - Preliminary Blood No Growth after 48 hours 03/09/21 15:25 Gram Stain - Preliminary Pleural Fluid Body Fluid Culture - Preliminary 03/09/21 21:05 Urine Culture - Final Urine,Clean Catch Assessment and Plan Assessment: Possible metastatic malignancy abdominal pain shortness of breath Left pleural effusion status post thoracentesis, awaiting on pathology awaiting for malignancy, Awaiting on pathology report, Continue consultation with pulmonary critical care for recommendations and treatment plan Left breast mass with axillary Lymphadenopathy with possible malignancy,awaiting and pathology report Intractable pain, Continue analgesics as needed Hydronephrosis, Continue consultation with urology degenerative joint disc disease nicotine dependence Full code Plan: Systemic adenopathy, continue consultation and recommendations from hematology and oncology pleural effusions, continue to monitor closely with pulmonary critical care for recommendations and treatment plan awaiting pathology reports continue to monitor vital signs and diagnostic testing continue to medically manage patient further recommendations to come based on patient's clinical condition Time with Patient: Greater than 30
--- NOTE | 2021-03-12 14:26 | P.PN ---
Subjective Progress Note Date: 03/12/21 CHIEF COMPLAINT: Generalized pain and shortness of breath HISTORY OF PRESENT ILLNESS: Surgical service is following her chest to patient's left breast mass. Patient is undergoing oncology workup for metastatic disease. Oncology has ordered MRI of the brain. Her supraclavicular lymph node biopsy showed metastatic poorly differentiated non-small cell carcinoma the pattern most favors a urothelial primary. The gastric biopsy shows chronic gastritis. Oncology is following patient closely. She is complaining of abdominal pain. Denies any nausea or vomiting. She was able to eat some breakfast. She is having bowel movements. Afebrile. White count is up at 14.2 PHYSICAL EXAM: VITAL SIGNS: Reviewed GENERAL: Well-developed in no acute distress. HEENT: No sclera icterus. Extraocular movements grossly intact. Moist buccal mucosa. Head is atraumatic, normocephalic. Hears conversational speech. No nasal drainage. NECK: Supple without lymphadenopathy. CHEST: Non-labored respirations and equal bilateral excursions. CARDIOVASCULAR: Palpable 2+ radial pulses. ABDOMEN: Soft. Nondistended. MUSCULOSKELETAL: No clubbing or cyanosis. NEUROLOGIC: No focal or lateralizing signs. Cranial nerves II through XII grossly intact. PSYCH: Appropriate affect. Alert and oriented to person, place and time. SKIN: Well perfused. Good skin turgor. ASSESSMENT: 1. Left breast mass measuring 1.[address] scan of the chest 2. Recent EGD with biopsy and excision of left supraclavicular lymph node on 03/06/2021. Biopsy results pending 3. Large left pleural effusion most likely malignant status post left thoracentesis with 1.1 L removed 4. Massive retroperitoneal lymphadenopathy. Multiple liver lesions consistent with metastatic disease noted on MRI of the abdomen on 02/25/2021 5. Hyponatremia PLAN: -No surgical intervention planned -Metastatic workup in progress per oncology -Continue supportive care Physician Bleacher Operator note has been reviewed by physician. Signing provider agrees with the documented findings, assessment, and plan of care. Objective - Vital Signs Vital signs: Vital Signs Temp 98.1 F 03/12/21 12:00 Pulse 62 03/12/21 12:00 Resp 16 03/12/21 12:00 BP 104/71 03/12/21 12:00 Pulse Ox 91 L 03/12/21 12:00 Intake & Output 06/03/12/21 03/12/21 18:59 06:59 18:59 Intake Total 600 120 Balance 600 120 Intake: Intake, IV Titration 600 120 Amount Sodium Chloride 0.9% 1, 600 120 000 ml @ 75 mls/hr IV . [id number] [facility] Rx#:[id number] Other: Voiding Method Toilet # Voids 4 # Bowel Movements 1 - Labs CBC & Chem 7: 03/12/21 05:56 03/12/21 05:56 Labs: Abnormal Lab Results - Last 24 Hours (Table) 03/11/21 03/12/21 03/12/21 Range/Units 14:12 05:56 05:56 WBC 14.2 H (3.8-10.6) k/uL RBC 3.49 L (3.80-5.40) m/uL Hgb 10.8 L (11.4-16.0) gm/dL Hct 31.5 L (34.0-46.0) % Neutrophils # 11.0 H (1.3-7.7) k/uL Monocytes # 1.4 H (0-1.0) k/uL Sodium 127 L 126 L (137-145) mmol/L Glucose 108 H (74-99) mg/dL Calcium 8.4 L (8.7-10.3) mg/dL AST 90 H (14-36) U/L Alkaline Phosphatase 258 H (38-126) U/L Total Protein 5.3 L (6.3-8.2) g/dL Albumin 2.6 L (3.5-5.0) g/dL Microbiology - Last 24 Hours (Table) 03/09/21 20:08 Blood Culture - Preliminary Blood No Growth after 48 hours 03/09/21 15:25 Gram Stain - Preliminary Pleural Fluid Body Fluid Culture - Preliminary 03/09/21 21:05 Urine Culture - Final Urine,Clean Catch
--- NOTE | 2021-03-12 14:52 | MR ---
EXAMINATION TYPE: MR brain wo/w con DATE OF EXAM: 03/12/2021 COMPARISON: None HISTORY: Metastatic CA TECHNIQUE: Multiplanar, multisequence images of the brain and brainstem is performed without and with IV contras t, utilizing 7 mL intravenous Gadavist . FINDINGS: Fast brain protocol was utilized due to patient's inability to cooperate with exam. Diffusi on weighted images demonstrate no evidence of a recent infarct or other diffusion abnormality. There is a soft tissue mass, lytic lesion associated with the calvarium at the level of the temporal bone on the right, some local mass effect on the right temporal lobe inferolaterally, soft tissue componen t measures approximately 2.7 x 3 x 2.3 cm in transverse dimension There is no extra-axial fluid colle ction. Periventricular confluent hyperintensity present on inversion recovery and T2-weighted sequen benjamin The ventricular system and cisternal spaces are normal in size and appearance. The brain volume is age appropriate. Midline structures demonstrate normal morphology. The craniocervical junction appears within normal limits. Post contrast images demonstrate focus of calvarial and scalp enhancement, coronal image #26 , axial image 28, 29. Focus of hyperintensity also present in the right frontal lobe on inversion rec overy and T2-weighted sequences, axial image 17 without definitive enhancement. The dural venous sinu ses appear patent. The visualized sinuses are clear and the globes are intact. IMPRESSION: Metastatic disease as described, some local mass effect on the right temporal lobe. Consi nikolay bone scan.
[2021-03-12] MEDS: ENOXAPARIN 40 MG/0.4 ML SYRINGE SQ SCH (21:12)
--- NOTE | 2021-03-12 21:33 | P.PN ---
Subjective Progress Note Date: 03/12/21 Principal diagnosis: Systemic adenopathy Long discussion again with patient, patient's sister and brother today. They understand any treatment intent is palliative. I have reviewed the MRI of the brain and unfortunetly demonstrates metastatic disease. Dexamethasone has been initiated and PPI, COnsult for Dr. Barksdale. Objective - Vital Signs Vital signs: Vital Signs Temp 98 F 03/12/21 19:33 Pulse 108 H 03/12/21 19:33 Resp 16 03/12/21 19:33 BP 105/72 03/12/21 19:33 Pulse Ox 90 L 03/12/21 19:33 Intake & Output 03/12/21 03/12/21 03/13/21 06:59 18:59 06:59 Intake Total 120 1080 Balance 120 1080 Intake: Intake, IV Titration 120 Amount Sodium Chloride 0.9% 1, 120 000 ml @ 75 mls/hr IV . [id number] JOE Rx#:[id number] Oral 1080 Other: # Voids 2 - Exam - Constitutional General appearance: cooperative, no acute distress - EENT Eyes: EOMI ENT: NA/AT - Neck Neck: lymphadenopathy - Respiratory Respiratory: bilateral: diminished, wheezing - Cardiovascular Rhythm: irregularly irregular leg Peripheral Edema: bilateral: 2+ - Gastrointestinal General gastrointestinal: distended, hepatomegaly, soft, tenderness - Integumentary Integumentary: pale - Neurologic Neurologic: CNII-XII intact - Musculoskeletal Musculoskeletal: generalized weakness - Psychiatric Psychiatric: A&O x's 3 - Labs CBC & Chem 7: 03/12/21 05:56 03/12/21 05:56 Labs: Abnormal Lab Results - Last 24 Hours (Table) 03/12/21 03/12/21 Range/Units 05:56 05:56 WBC 14.2 H (3.8-10.6) k/uL RBC 3.49 L (3.80-5.40) m/uL Hgb 10.8 L (11.4-16.0) gm/dL Hct 31.5 L (34.0-46.0) % Neutrophils # 11.0 H (1.3-7.7) k/uL Monocytes # 1.4 H (0-1.0) k/uL Sodium 126 L (135-145) mmol/L Calcium 8.4 L (8.7-10.3) mg/dL Microbiology - Last 24 Hours (Table) 03/09/21 15:25 Gram Stain - Preliminary Pleural Fluid Body Fluid Culture - Preliminary 03/09/21 20:08 Blood Culture - Preliminary Blood No Growth after 48 hours Assessment and Plan (1) Adenopathy Current Visit: Yes Status: Acute Code(s): R59.9 - ENLARGED LYMPH NODES, UNSPECIFIED SNOMED Code(s): 94868062 (2) Abdominal lymphadenopathy Current Visit: No Status: Acute Code(s): R59.0 - LOCALIZED ENLARGED LYMPH NODES SNOMED Code(s): 494378924 (3) Metastasis of unknown primary Current Visit: Yes Status: Acute Code(s): C79.9 - SECONDARY MALIGNANT NEOPLASM OF UNSPECIFIED SITE SNOMED Code(s): 405607452 Plan: Assessment and Recommendations: Massive systemic adenopathy: - Await excisional node biopsy results from 03/06 - CT abdomen and Pelvis progression noted with multiple heaptic lesions in line with metastatic disease - LDH and Uric Acid - Echocardiogram Reviewed - Pulmonary following for effusions - 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 Will await molecular testing but in interim will further stage with MRI of brain and discuss goals of care as palliative intent MRI Brain positive metastatic disease add dexamethasone, PPI CMP - Awaiting results We discussed results of pathology in detail and the overall prognosis and goals of treatment. palliative intent.
[2021-03-12] MEDS: DEXAMETHASONE SOD PHOSPHATE 4 MG/ML 1 ML VIAL IV SCH (23:43)
[2021-03-13] MEDS: DEXAMETHASONE SOD PHOSPHATE 4 MG/ML 1 ML VIAL IV SCH ×2 (05:23→11:20)
[2021-03-13] MEDS: HYDROmorphone 1 MG/ML 1 ML SYRINGE IVP PRN ×3 (05:25→15:23)
[2021-03-13 06:28] LABS: Basophils % (A) 0 %; Eosinophils % (A) 0 %; HCT 30.7 % (34.0-46.0); HGB 10.6 gm/dL (11.4-16.0); Lymphocytes # (A) 0.6 k/uL (1.0-4.8); Lymphocytes % (A) 5 %; MCH 30.8 pg (25.0-35.0); MCHC 34.4 g/dL (31.0-37.0); MCV 89.4 fL (80.0-100.0); Mean Platelet Volume 7.4; Monocytes # (A) 0.7 k/uL (0-1.0); Monocytes % (A) 5 %; Neutrophils # (A) 12.8 k/uL (1.3-7.7); Neutrophils % (A) 89 %; Platelet Count 426 k/uL (150-450); RBC 3.43 m/uL (3.80-5.40); RDW 12.5 % (11.5-15.5); WBC 14.3 k/uL (3.8-10.6)
[2021-03-13] MEDS: SUCRALFATE 1 GM TAB PO SCH ×2 (07:49→11:21)
[2021-03-13] MEDS: HYOSCYAMINE SULFATE 0.125 MG TAB PO SCH ×2 (07:49→15:23)
[2021-03-13] MEDS: NICOTINE 21MG/24HR PATCH TRANSDERM SCH (07:49)
[2021-03-13] MEDS: LACTULOSE 20 GM/30 ML CUP PO SCH ×2 (07:49→12:35)
--- NOTE | 2021-03-13 08:03 | P.PN ---
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 She will receive palliative treatment. In light of that I do not recommend any further urologic intervention for the left hydronephrosis. This is been discussed with the patient. Objective - Vital Signs Vital signs: Vital Signs Temp 98 F 03/13/21 04:47 Pulse 106 H 03/13/21 04:47 Resp 16 03/13/21 04:47 BP 124/83 03/13/21 04:47 Pulse Ox 91 L 03/13/21 04:47 Intake & Output 03/12/21 03/13/21 03/13/21 18:59 06:59 18:59 Intake Total 1080 Balance 1080 Intake: Oral 1080 Other: Voiding Method Toilet # Voids 2 - Labs CBC & Chem 7: 03/13/21 05:57 03/12/21 05:56 Labs: Abnormal Lab Results - Last 24 Hours (Table) 03/12/21 03/13/21 Range/Units 05:56 05:57 WBC 14.3 H (3.8-10.6) k/uL RBC 3.43 L (3.80-5.40) m/uL Hgb 10.6 L (11.4-16.0) gm/dL Hct 30.7 L (34.0-46.0) % Neutrophils # 12.8 H (1.3-7.7) k/uL Lymphocytes # 0.6 L (1.0-4.8) k/uL Sodium 126 L (135-145) mmol/L Calcium 8.4 L (8.7-10.3) mg/dL Microbiology - Last 24 Hours (Table) 03/09/21 20:08 Blood Culture - Preliminary Blood No Growth after 72 hours 03/09/21 15:25 Gram Stain - Preliminary Pleural Fluid Body Fluid Culture - Preliminary
[2021-03-13] MEDS ORDERED: PANTOPRAZOLE 40 MG TABLET PO SCH (09:00)
--- NOTE | 2021-03-13 09:17 | XR ---
EXAMINATION TYPE: XR chest 2V DATE OF EXAM: 03/13/2021 COMPARISON: Chest x-ray 03/09/2021 HISTORY: Shortness of breath TECHNIQUE: Frontal and lateral views of the chest are obtained. FINDINGS: There is blunting of the costophrenic angle on the right, abnormal attenuation at the lung bases left greater than right with obscured left hemidiaphragm. Aorta is dense. Heart is obscured. N o evident pneumothorax. Probable calcified nodules at the right lung base. Interstitium is mildly inc reased. IMPRESSION: Correlate for interstitial edema, bibasilar effusions and associated atelectasis versus edema, pneumonia not excluded. Old granulomatous disease.
[2021-03-13 10:59] LABS: African American GFR (CKD) 92.2 (60.0-200.0); Albumin 3.1 g/dL (3.80-4.90); Albumin/Globulin Ratio 1.35 (1.60-3.17); Anion Gap 7.2 mmol/L (4.00-12.00); BUN/Creat Ratio 16.25 Ratio (12.00-20.00); Calcium 8.7 mg/dL (8.7-10.3); Carbon Dioxide 20.8 mmol/L (21.6-31.8); Globulin 2.3 g/dL (1.6-3.3); Magnesium 1.7 mg/dL (1.5-2.4); Non-African American GFR(CKD) 79.6 (60.0-200.0); Potassium 4.7 mmol/L (3.5-5.5); Total Bilirubin 0.3 mg/dL (0.2-1.2); Total Protein 5.4 g/dL (6.2-8.2)
--- NOTE | 2021-03-13 11:32 | P.PN ---
Subjective Progress Note Date: 03/13/21 Principal diagnosis: Generalized weakness, abdominal discomfort, bloating, pleural effusion This is a 60-year-old female who has not been feeling well since December of 2020. Patient has been complaining of vague abdominal discomfort and some bloating of her stomach for the last 2 months. A KUB was done on 01/02/2021, and it showed subsegmental atelectasis posterior right lung base. There was no evidence of acute abdomen at the time. And no evidence of mass. CT of the abdomen and pelvis was done on 01/03/2021, this was done in the ER, and there was evidence of extensive retroperitoneal and gastrohepatic lymphadenopathy. The radiologist at that time recommended MRI of the abdomen. MRI of the abdomen was not done on 14/06/2021, however prior to that on 02/2021, patient was seen in the ER again, and her complaint was mostly urinary retention. No major workup was done at the time. Her MRI on 02/25/21, showed massive retroperitoneal lymphadenopathy significantly increased compared to previous CT of the abdomen and pelvis. There was evidence of anterior displacement of the pancreas due to adenopathy. There was also multiple liver lesions significantly increased compared to previous CT of the abdomen and pelvis consistent with metastatic disease. There was also evidence of left sided hydronephrosis and proximal hydroureter. There was also evidence of abdominal ascites. The radiologist also raise the possibility of distal ureteral obstruction. Patient was referred to Dr. Luther on outpatient basis, and he recommended a referral to Dr. David schilling. Patient underwent EGD she also underwent excision of left supraclavicular lymph node. There was no evidence of inflammatory or polypoid lesions throughout the stomach or duodenum. The pathology on the left supraclavicular lymph node is pending. Patient was seen by her primary care physician today with multiple constitutional complaints, and he recommended that the patient goes to the ER again. CT of the chest was done, and it showed no evidence of pulmonary embolism. It did show evidence of 1.9 cm left breast mass and left sided axillary lymphadenopathy it also showed bilateral pulmonary nodules and left supraclavicular as well as left thoracic inlet lymphadenopathy significant upper abdominal lymphadenopathy and hepatic as well as adrenal metastatic lesions were noted. In addition to this there was a moderate to large left pleural effusion and collapse of the inferior lingula. With a small right-sided pleural effusion. Considering the findings, I was asked to see this patient on consu ltation I did evaluate the patient in the ER, went ahead and performed left- sided thoracentesis which is mostly diagnostic and therapeutic at the same time. Fluid was sent for different diagnostic studies including cytology and creatinine level was ordered to make sure that the fluid is not urinothorax . I was able to drain 1100 mL of fluid and again this was sent for different diagnostic studies. I did get the report on the biopsies that were done by Dr. schilling, and these are all pending. On 03/10/2021 patient seen in follow-up on oncology floor. She is sitting up in her bed, she is on room air, her pulse ox is 92%, she states she feels like her breathing is short, and she is taking shallow breaths, however she is not tachypneic, yesterday she underwent left-sided thoracentesis by Dr. Cross and 1100 mL of slightly yellow pleural fluid was removed, pleural fluid analysis showed an exudative fluid with a total protein of 3.3 g, fluid 8 LDH is 539, fluid amylase was 38, polynuclear WBCs were 30, and mononuclear WBCs were 70, fluid glucose was 86. Pleural fluid cultures are pending, cytology is pending. Patient still complains of pain across the abdomen, she is requesting her pain meds to be increased, she is currently on Winkelman 5325 milligrams every 4 hours, and Dilaudid 0.5 mg every 3 hours for breakthrough pain. On 03/11/2021 patient seen in follow-up on oncology floor. Left supraclavicular lymph node biopsy results are still pending, pleural fluid cytology results are also pending. Patient is awake and alert, in no acute distress, seems to be much more comfortable on today's exam, and does not appear to be in no acute distress, she is breathing comfortably, room air pulse ox is 99%, and she is afebrile, no complaints of chest discomfort, no abdominal discomfort. She is afebrile, does get short of breath with exertion. No cough no wheezing, no hemoptysis, CT of the abdomen and pelvis was completed showing suspected metastatic disease to the lungs, marked interval increase in hepatic metastatic lesions as well as encasing retroperitoneal and gastrohepatic ligament adenopathy, adenopathy extends into the pelvis. There was a suspected obstruction of the left ureter related to the retroperitoneal adenopathy, there is left perinephric stranding and edema and bilateral adrenal masses were also noted. Patient remains on 0.9 normal saline infusing at a rate of 75 ML per hour, today's labs showed white blood cell count of 13.6, hemoglobin of 11, serum sodium yesterday was down to 127, LDH was 3316. Pleural fluid cultures have been negative, blood and urine cultures have been negative On 03/12/2021 patient seen in follow-up on medical oncology unit. She is sitting up on the edge of the bed, appears to be quite comfortable, in no acute distress, she is on room air, pulse ox is 88-91%, breathing is nonlabored, she is afebrile, hemodynamically patient is stable. Denies any pain, and her pain medications have been readjusted with addition of fentanyl patch 25 mics per hour patch every 72 hours, and her breakthrough Dilaudid is at 1 mg every 4 hours in addition to oral Winkelman's. Patient appears to be slightly inappropriate, slurring words, but no acute distress, breathing comfortably. Left supraclavicular biopsy node biopsy came back positive for metastatic poorly differentiated non-small cell carcinoma, and the immunostaining results were not entirely specific with the pattern most favoring urothelial primary, with additional possibilities which were considered to be less likely including lung, breast or GI tract. Pleural fluid cytology is still pending, cultures are pending, blood and urine cultures show no growth On 03/13/2021 patient seen in follow-up on oncology floor. She is sitting up on the edge of bed, appears to be breathing comfortably, denies any acute distress. Remainder pulse ox is 91%, no complaints of chest discomfort, she is afebrile. Follow-up chest x-ray today shows interstitial edema, bibasilar effusions, and associated atelectasis. Today's labs have been reviewed, white blood cell count is stable at 14.3, hemoglobin is 10.6, serum sodium is improving, today's 128, patient continues on fluid restriction of 1.2 L per day, potassium is 4.7, BUN is 13 creatinine 0.8. Patient's left supraclavicular node biopsy was positive for metastatic poorly differentiated non-small cell carcinoma, favoring urothelial primary. Pleural fluid cytology was non-diagnostic. Patient had MRI of the brain showing metastatic disease with a soft tissue mass and lytic lesion associated with that calvarium at the level of the temporal bone on the right with local mass effect on the right temporal bone infero-laterally. Medical oncology is following. Urology is following, no plans for surgical intervention at this time. Patient's pain seems to be better controlled. Discharge planning is following, and possibility of returning home with palliative care and hospice was discussed with the patient. Patient would like home care and palliative care if there is no cost to her. Objective - Vital Signs Vital signs: Vital Signs Temp 98 F 03/13/21 04:47 Pulse 106 H 03/13/21 04:47 Resp 16 03/13/21 04:47 BP 124/83 03/13/21 04:47 Pulse Ox 91 L 03/13/21 04:47 Intake & Output 03/12/21 03/13/21 03/13/21 18:59 06:59 18:59 Intake Total 1080 Output Total 200 Balance 1080 -200 Intake: Oral 1080 Output: Urine 200 Other: Voiding Method Toilet Toilet # Voids 2 2 - Exam GENERAL EXAM: Alert, 60-year-old white female, on room air with a pulse ox of 99%, comfortable in no apparent distress. HEAD: Normocephalic/atraumatic. EYES: Normal reaction of pupils, equal size. Conjunctiva pink, sclera white. NOSE: Clear with pink turbinates. THROAT: No erythema or exudates. NECK: No masses, no JVD, no thyroid enlargement, no adenopathy. CHEST: No chest wall deformity. Symmetrical expansion. LUNGS: Equal air entry with diminished breath sounds at bilateral bases CVS: Regular rate and rhythm, normal S1 and S2, no gallops, no murmurs, no rubs ABDOMEN: Soft, nontender. No hepatosplenomegaly, normal bowel sounds, no guarding or rigidity. EXTREMITIES: No clubbing, no edema, no cyanosis, 2+ pulses and upper and lower extremities. MUSCULOSKELETAL: Muscle strength and tone normal. SPINE: No scoliosis or deformity SKIN: No rashes CENTRAL NERVOUS SYSTEM: Alert and oriented -3. No focal deficits, tone is normal in all 4 extremities. PSYCHIATRIC: Alert and oriented -3. Appropriate affect. Intact judgment and insight. - Labs CBC & Chem 7: 03/13/21 05:57 03/13/21 05:57 Labs: Abnormal Lab Results - Last 24 Hours (Table) 03/12/21 03/13/21 03/13/21 Range/Units 05:56 05:57 05:57 WBC 14.3 H (3.8-10.6) k/uL RBC 3.43 L (3.80-5.40) m/uL Hgb 10.6 L (11.4-16.0) gm/dL Hct 30.7 L (34.0-46.0) % Neutrophils # 12.8 H (1.3-7.7) k/uL Lymphocytes # 0.6 L (1.0-4.8) k/uL Sodium 126 L 128 L (135-145) mmol/L Carbon Dioxide 20.8 L (21.6-31.8) mmol/L Glucose 143 H (70-110) mg/dL Calcium 8.4 L (8.7-10.3) mg/dL AST 59 H (13-35) U/L Alkaline Phosphatase 412 H (41-126) U/L Total Protein 5.4 L (6.2-8.2) g/dL Albumin 3.10 L (3.80-4.90) g/dL Albumin/Globulin Ratio 1.35 L (1.60-3.17) g/dL Microbiology - Last 24 Hours (Table) 03/09/21 20:08 Blood Culture - Preliminary Blood No Growth after 72 hours 03/09/21 15:25 Gram Stain - Preliminary Pleural Fluid Body Fluid Culture - Preliminary Assessment and Plan Plan: Assessment: #1. Metastatic malignancy, with possibly a metastatic non-small cell carcinoma with urothelial primary, and less likely related to lung, breast or GI tract. #2. Large left-sided pleural effusion, most likely malignant. Status post left thoracentesis on 03/09/2021 with removal of 1.1 liter of pleural fluid and pleural fluid analysis showed exudative fluid, cytology was nondiagnostic, cultures remain negative thus far #3. Possible urinothorax was being considered, and pleural fluid was sent for creatinine, and specific gravity, however we don't have those results. This was being considered on the basis of CT abdomen showing left hydronephrosis and distal left ureteral obstruction #4. History of recent left supraclavicular lymph node excision on 03/06/2021, biopsy results positive for metastatic poorly differentiated non-small cell ca rcinoma with possibility of urothelial primary #5. Abnormal MRI of the abdomen did have a suspicious for metastatic disease involving the liver, adrenals and significant retroperitoneal adenopathy #6. Small ascites #7. Left breast mass, with consideration for malignancy, general surgery to see him on consultation #8. Left hydronephrosis with ureteral obstruction #9. Nicotine dependence syndrome #10. Possible pancreatic or hepatobiliary malignancy especially in view of elevated CA 199 #11. Hyponatremia with possible ascites, and possibly related to SIADH Plan: Today's chest x-ray has been reviewed Bilateral pleural effusions are fairly stable in appearance No worsening dyspnea Pleural fluid cytology was negative however this does not rule out possibility of metastatic pleural effusion CT surgery has been consulted and patient will likely need placement of Pleurx catheter for palliative reasons Patient has evidence of metastatic malignancy likely of urothelial primary She is appropriate for consideration of palliative care and hospice Case management is following and referral has been made for palliative care and hospice at home From pulmonary perspective we find the patient is appropriate for palliative care hospice consideration We will sign off and follow the patient on as-needed basis I performed a history & physical examination of the patient and discussed their management with my nurse practitioner, Maria R Martínez. I reviewed the nurse practitioner's note and agree with the documented findings and plan of care. Lung sounds are positive for diminished breath sounds. The findings and the impression was discussed with the patient. I attest to the documentation by the nurse practitioner. Time with Patient: Less than 30
[2021-03-13 12:01] VITALS: BP 127/74; PULSE 109; RESP 20; TEMP 97.4
[2021-03-13] MEDS: HYDROcodone/APAP 5-325MG 1 EACH TAB PO PRN (14:07)
--- NOTE | 2021-03-13 14:52 | P.GSCN ---
History of Present Illness Consult date: 03/12/21 Reason for Consult: Evaluate for Pleurx catheter placement Requesting physician: Aba Silva History of present illness: This is a 60-year-old female patient who follows with Dr. Og Darby for her primary care on an outpatient basis. She has a past medical history significant for recent complaints of black tarry stools and constipation. She also has a history of chronic ongoing tobacco dependence, daily marijuana use and daily EtOH use drinking around a 6 pack of beer daily. According to the patient and she presented to Dr. Og Darby's office on 03/09/2021 with complaints of generalized weakness, abdominal pain, abdominal bloating, black tarry stools and progressive shortness of breath. She was seen by a nurse practitioner at the office and was sent to the emergency department here at [facility] for further evaluation and treatment recommendations. She denies any recent fever, chills, nausea, vomiting, diarrhea, hematemesis, hemoptysis, headache, dizziness, presyncope or syncope. The patient reports that she has been unable to lay flat for about the last 3-4 weeks and has been sitting up and sleeping in a chair in the tripod position during this time. She states that she is unable to lay flat, on her side or on her stomach due to pain in her abdomen and her shortness of breath. In the emergency department her initial labs showed a WBC count 14.2, d-dimer 2.47, sodium 130, chloride 95, BUN 11, creatinine 0.71, plasma lactic acid 1.7, AST 80, alkaline phosphatase 319 and a coronavirus test was completed which showed not detected. Due to the patient's presenting symptoms of shortness of breath, and an elevated d-dimer a CT chest angio for PE was completed which demonstrated no evidence for pulmonary embolus, a 1.9 cm left breast mass, a left-sided axillary lymphadenopathy, bilateral pulmonary nodules measuring up to 1.5 cm, a left subclavicular and left thoracic inlet lymphadenopathy, retrocrural and severe upper abdominal lymphadenopathy, hepatic and adrenal metastases and perinephric nodularity also suggestive of metastatic disease. The computed tomography scan also showed moderate to large left pleural effusion, a small right pleural effusion, COPD with mild emphysema and mild pulmonary vascular congestion. A 12-lead EKG was also completed which showed sinus tachycardia with a heart rate of 107 BPM. Due to the findings of a moderate to large left pleural effusion and ultrasound of her chest was completed which showed a 10.7 cm left pleural effusion pocket. On 03/09/2021 Dr. Silva from pulmonary medicine was consulted and the patient underwent a left thoracentesis with 1.1 L of slightly yellow fluid drained. The patient also had some swelling to her feet and underwent an venous duplex ultrasound of her bilateral lower extremities which showed no evidence of acute deep vein thrombosis, evidence for some minimal chronic deep vein thrombosis in both femoral veins and a dominant left inguinal lymph node. The patient also reports that she underwent a biopsy to her left supraclavicular lymph node performed by Dr. schilling with the pathology results pending. Subsequently due to the patient's pleural effusion and recent thoracentesis a consult was placed to Dr. Shy Marrero from cardiothoracic surgery for further evaluation and treatment recommendations including placement of Pleurx catheter. Review of Systems A 14 point review of systems was completed and was negative except as mentioned in the HPI. Past Medical History Past Medical History: No Reported History Additional Past Medical History / Comment(s): " FLUID ON LUNGS " -POSSIBLE , SWELLING IN FEET, ABDOMINAL PAIN, black tarry stools, constipation History of Any Multi-Drug Resistant Organisms: None Reported Past Surgical History: Joint Replacement, Orthopedic Surgery Additional Past Surgical History / Comment(s): RIGHT TOTAL KNEE, COLONOSCOPY, recent biopsy of her left supraclavicular node on 03/06/2021, left thoracentesis performed by Dr. Silva on 03/09/2021 Past Anesthesia/Blood Transfusion Reactions: No Reported Reaction Past Psychological History: No Psychological Hx Reported Smoking Status: Current every day smoker Past Alcohol Use History: Daily Past Drug Use History: Marijuana - Past Family History Mother Family Medical History: Cancer Additional Family Medical History / Comment(s): BREAST CANCER Father Family Medical History: Cancer Additional Family Medical History / Comment(s): COLON CANCER Medications and Allergies Home Medications Medication Instructions Recorded Confirmed Type Docusate [Colace] 100 mg PO DAILY PRN 02/25/21 03/09/21 History Sucralfate [Carafate] 1 gm PO Q6H 02/25/21 03/09/21 History HYDROcodone/APAP 5-325MG [[place] 1 tab PO Q6HR 03/05/21 03/09/21 History 5-325] Hyoscyamine Sulfate [Levsin] 0.125 mg PO TID 03/05/21 03/09/21 History Allergies Allergy/AdvReac Type Severity Reaction Status Date / Time No Known Allergies Allergy Verified 03/09/21 13:13 Surgical - Exam Vital Signs Temp Pulse Resp BP Pulse Ox 98.2 F 107 H 18 110/77 94 L 03/09/21 11:05 03/09/21 11:05 03/09/21 11:05 03/09/21 11:05 03/09/21 11:05 - General well developed, well nourished, no distress, no pain, obese - Eyes PERRL, normal ocular movement, no icteric - ENT normal pinna, normal nares, normal mucosa, no hearing loss, no congestion - Neck Prominent left subclavicular lymphadenopathy no bruits, trachea midline, no venous distension - Respiratory Lungs sounds essentially clear to bilateral upper lobes, diminished bilateral bases, left greater than right. Respirations are symmetrical and nonlabored. - Cardiovascular Regular rhythm and rate. S1 and S2 present, negative for S3, gallop or murmur. No edema present. - Abdomen Active bowel sounds to all 4 abdominal quadrants. Abdomen: non tender, organomegaly, no guarding, no rigid, distended - Integumentary no rash, no abnormal pigmentation - Neurologic Cranial nerves II through XII intact. - Musculoskeletal normal gait, normal posture - Psychiatric oriented to time, oriented to person, oriented to place, speech is normal, memory intact Results - Labs 03/13/21 05:57 03/13/21 05:57 Abnormal Lab Results - Last 24 Hours (Table) 03/12/21 03/12/21 Range/Units 05:56 05:56 WBC 14.2 H (3.8-10.6) k/uL RBC 3.49 L (3.80-5.40) m/uL Hgb 10.8 L (11.4-16.0) gm/dL Hct 31.5 L (34.0-46.0) % Neutrophils # 11.0 H (1.3-7.7) k/uL Monocytes # 1.4 H (0-1.0) k/uL Sodium 126 L (135-145) mmol/L Calcium 8.4 L (8.7-10.3) mg/dL Microbiology - Last 24 Hours (Table) 03/09/21 20:08 Blood Culture - Preliminary Blood No Growth after 48 hours 03/09/21 15:25 Gram Stain - Preliminary Pleural Fluid Body Fluid Culture - Preliminary Diabetes panel 03/12/21 Range/Units 05:56 Sodium 126 L (135-145) mmol/L Potassium 4.9 (3.5-5.5) mmol/L Chloride 98 (96-109) mmol/L Carbon Dioxide 22.2 (21.6-31.8) mmol/L BUN 13.0 (9.0-27.0) mg/dL Creatinine 0.8 (0.6-1.5) mg/dL Glucose 88 (70-110) mg/dL Calcium 8.4 L (8.7-10.3) mg/dL Calcium panel 03/12/21 Range/Units 05:56 Calcium 8.4 L (8.7-10.3) mg/dL Pituitary panel 03/12/21 Range/Units 05:56 Sodium 126 L (135-145) mmol/L Potassium 4.9 (3.5-5.5) mmol/L Chloride 98 (96-109) mmol/L Carbon Dioxide 22.2 (21.6-31.8) mmol/L BUN 13.0 (9.0-27.0) mg/dL Creatinine 0.8 (0.6-1.5) mg/dL Glucose 88 (70-110) mg/dL Calcium 8.4 L (8.7-10.3) mg/dL Adrenal panel 03/12/21 Range/Units 05:56 Sodium 126 L (135-145) mmol/L Potassium 4.9 (3.5-5.5) mmol/L Chloride 98 (96-109) mmol/L Carbon Dioxide 22.2 (21.6-31.8) mmol/L BUN 13.0 (9.0-27.0) mg/dL Creatinine 0.8 (0.6-1.5) mg/dL Glucose 88 (70-110) mg/dL Calcium 8.4 L (8.7-10.3) mg/dL - Imaging Chest x-ray: report reviewed, image reviewed CT scan - abdomen: report reviewed CT scan - chest: report reviewed CT scan - pelvis: report reviewed EKG: image reviewed Assessment and Plan Assessment: 1. Possible metastatic malignancy, with abdominal pain and bloating, computed tomography scan showing suspicion for metastatic disease involving the liver, adrenals and significant retroperitoneal adenopathy 2. Large left pleural effusion, status post left thoracentesis 3. Left supraclavicular lymph node with recent biopsy, pathology results pending, computed tomography scan results suspicious for metastatic disease involving the liver, adrenals, and significant retroperitoneal adenopathy 4. History of constipation and black tarry stools 5. Left breast mass, suspicious for malignancy, oncology following 6. Hyponatremia present on admission 7. Chronic ongoing tobacco dependence 8. Daily marijuana use 9. Daily EtOH use Plan: The patient was seen and examined at her bedside on the fifth floor medical oncology unit. One of her brothers and one of her sisters is present at her bedside. Her chart and diagnostics were reviewed. Her case was discussed in detail with Dr. Shy Marrero from cardiothoracic surgery. Importance of risk modification including alcohol consumption and smoking cessation were discussed with the patient. Medical management other comorbidities per primary care service. No surgical intervention for Pleurx catheter placement at this time as the patient has had one thoracentesis. If the pleural effusion should recur recommend a second thoracentesis and if the pleural fluid continues to recur, a Pleurx catheter placement could be considered. Medical management per primary care service. We will continue to follow the patient on an as-needed basis. Thank you Dr. Silva for this consult. Time with Patient: Greater than 30
== END 2021-03-13 15:59 | disposition hospice, home (50) | DRG 687 ==
LOC: EC 10:37 → 5NMEDONC 13:52
PROVIDERS: ADMIT Family Medicine; ATTEND Family Medicine
PROC: 0W9B3ZX Drainage of Left Pleural Cavity, Percutaneous Approach, Diagnostic (ICD-10-PCS; principal; 2021-03-09)
DX: C68.8 Malignant neoplasm of overlapping sites of urinary organs (principal); C79.31 Secondary malignant neoplasm of brain; C79.70 Secondary malignant neoplasm of unspecified adrenal gland; C78.7 Secondary malignant neoplasm of liver and intrahepatic bile duct; C77.0 Secondary and unspecified malignant neoplasm of lymph nodes of head, face and neck; E87.1 Hypo-osmolality and hyponatremia; J90 Pleural effusion, not elsewhere classified; J98.11 Atelectasis; N13.1 Hydronephrosis with ureteral stricture, not elsewhere classified; R18.8 Other ascites; D72.829 Elevated white blood cell count, unspecified; Z71.6 Tobacco abuse counseling; F17.210 Nicotine dependence, cigarettes, uncomplicated; R59.0 Localized enlarged lymph nodes; J43.9 Emphysema, unspecified; K29.50 Unspecified chronic gastritis without bleeding; N63.20 Unspecified lump in the left breast, unspecified quadrant; R09.02 Hypoxemia; Z51.5 Encounter for palliative care; Z20.822 Contact with and (suspected) exposure to COVID-19; Z79.899 Other long term (current) drug therapy; Z80.0 Family history of malignant neoplasm of digestive organs; Z80.3 Family history of malignant neoplasm of breast; Z96.659 Presence of unspecified artificial knee joint
CPT/HCPCS: 36415; 70553; 71045; 71046; 71275; 74177; 76604; 80048; 80053; 81001; 82150; 82570; 82945; 83605; 83615; 83690; 83735; 83930; 83935; 84157; 84300; 84484; 84550; 85025; 85379; 85610; 85730; 87040; 87070; 87086; 87102; 87116; 87205; 87206; 87252; 87496; 87498; 87502; 87529; 87634; 87635; 87798; 88108; 88305; 88341; 88342; 89050; 93005; 93306; 93970; 94760; 96361; 96374; 99285